=== PATIENT | female | born 1945 | race Caucasian/White ===

== ENCOUNTER 2019-01-03 12:24 | Inpatient (IN) | payer MEDICARE ==
[~2019-01-03 12:24] MED LIST: ISOVUE-370 76%-LOCM 1 ML ONE
[2019-01-03] MEDS ORDERED: Morphine 4 MG/ML VIAL ONE (13:29)
--- NOTE | 2019-01-03 14:51 | CT ---
CT CHEST WITH CONTRAST: INDICATION: Cough. Sepsis. FINDINGS: Cardiomegaly and mild vascular congestion. There are chronic lung parenchymal changes. There is con fluent infiltrate and/or atelectasis in the lung bases. There is a focal opacity in the posterior morris ng base which is pleural based which could represent dense atelectasis or consolidation. It measures 2 cm. This should be followed to ensure clearing as soft tissue nodular mass cannot be excluded. The mediastinum is unremarkable. Thoracic aorta shows no evidence of dissection. The pulmonary ck ry opacification is suboptimal and pulmonary emboli cannot be assessed on this study. IMPRESSION: There is cardiomegaly and mild vascular congestion. There is streaky atelectasis and/or infiltrate i n both lung bases extending to the pleural surface. There is a 2.0 cm pleural-based opacity in the p osterior lung base which could represent dense atelectasis or consolidation. Followup after treatmen t is recommended as a soft tissue mass cannot be excluded. POS: [facility]
[2019-01-03] MEDS ORDERED: HYDROcodone/Acetaminophen 5/325 mg Tablet PO PRN ×2 (18:02)
[2019-01-03] MEDS ORDERED: Acetaminophen 325 MG TAB PO PRN ×2 (18:02→18:11)
[2019-01-03] MEDS ORDERED: Ondansetron ODT 4 MG TAB SL PRN (18:02)
[2019-01-03] MEDS ORDERED: Ondansetron PF 4 MG/2 ML Vial IVP PRN ×3 (18:02→18:11)
[2019-01-03] MEDS ORDERED: hydrALAZINE 20 MG/ML VIAL SLOW IVP PRN (18:11)
[2019-01-03] MEDS ORDERED: Dextrose 5% in Water 1,000 ML IV PRN (18:11)
[2019-01-03] MEDS ORDERED: Ondansetron ODT 4 MG TAB PO PRN ×2 (18:11)
[2019-01-03] MEDS ORDERED: Dextrose 50% Abboject 50 ML SYRINGE SLOW IVP PRN (18:11)
[2019-01-03] MEDS ORDERED: Lactated Ringer's 1,000 ML IV SCH (18:15)
--- NOTE | 2019-01-03 18:16 | HP ---
PRIMARY CARE PHYSICIAN: Dr. Cortez in [place], [place]. CHIEF COMPLAINT: "My left leg has been hurting for the last 2-1/2 weeks." HISTORY OF PRESENT ILLNESS: Ms. Christiansen is a pleasant 73-year-old female, who has a history of hypertension, diabetes mellitus, and previous deep vein thrombosis. She says that she has had problems with her left leg ever since she had surgery on it several years ago. She said that she had a knee replacement surgery that unfortunately got infected. She says that she had an infection in it at least twice and the last time was a few years ago in which case she had to have a spacer put in. She says she is more or less nonambulatory at home and gets around by going from the bed to a wheelchair, but she says in the last 2 weeks, she has gotten severe pain starting in her groin on the left side going all the way down to her leg and her foot. She also says her buttocks hurt as well. She also says that the knee on her left side seems to be more swollen than usual and at times, her daughter can barely touch it. She says this is the reason that she came to the ER. Somehow in the workup there was a concern for possible pneumonia. However, the patient's daughter says that she has been in and out of the hospital several times with pneumonia and then was finally diagnosed with pulmonary fibrosis about 2 to 3 years ago. She says that she has stable shortness of breath. She is on 3 L at home and that the symptoms have not changed. She does admit to having some subjective chills, but no fever. She also has some nausea and decrease in appetite. Otherwise, no other complaints. REVIEW OF SYSTEMS: CONSTITUTIONAL: There has been no fever, but she has had subjective chills, decreased appetite, but no weight loss. HEENT: No headaches. No dizziness. No visual changes. No sore throat or rhinorrhea. NECK: No neck pain. No adenopathy. PULMONARY: As in the history of present illness with no hemoptysis or cough or wheezing. CARDIOVASCULAR: She denies any chest pain. She has stable shortness of breath. No PND. No orthopnea. GASTROINTESTINAL: She has had some occasional nausea, and she did actually throw up once. No other change in bowels. No diarrhea. No melena. GENITOURINARY: She denies any urinary frequency. No hematuria. No hesitancy. MUSCULOSKELETAL: As in history of present illness. SKIN AND INTEGUMENT: No skin changes. No rash. PSYCHIATRIC: No symptoms of anxiety or depression. PAST MEDICAL HISTORY: Significant for hypertension, diabetes, deep vein thrombosis, hypothyroidism, depression, pulmonary fibrosis. PAST SURGICAL HISTORY: She has had an IVC filter placed, cholecystectomy, hysterectomy, thyroidectomy, and total knee replacement x3. ALLERGIES: TO BACTRIM. SHE SAYS IT IS NOT BIAXIN, BUT IT IS BACTRIM AND TORADOL, BOTH OF WHICH ARE NOT TRUE ALLERGIES BUT CAUSED HER TO HAVE NAUSEA. SOCIAL HISTORY: She is a nonsmoker and nondrinker. She is . She has 3 children. Her daughter, Milagros, is her medical power of educational psychologist and she would like to be a full code. FAMILY HISTORY: Significant for congestive heart failure in her mother and diabetes mellitus. CURRENT MEDICATIONS: Include: 1. Levemir insulin 16 to 18 units subcutaneous as needed. 2. Humalog sliding scale. 3. Metoprolol 100 mg daily. 4. Crestor 20 mg daily. 5. Xarelto 20 mg a day. 6. Levothyroxine 125 mcg p.o. daily. 7. Metformin 500 mg twice a day. 8. Losartan 100 mg daily. 9. Venlafaxine extended release 150 mg daily. PHYSICAL EXAMINATION: GENERAL: She is alert and oriented. She appears to be in no acute distress. She is well developed and well nourished. VITAL SIGNS: Blood pressure is 137/64, heart rate 118, respiratory rate of 18, temperature is 99.1, and O2 saturation is 100% on 2 L. HEENT: Her pupils are equal, round, and reactive to light. Extraocular muscles are intact. Her sclerae are anicteric. Throat, no erythema, no exudates. NECK: No adenopathy. No bruits. LUNGS: Clear to auscultation. She does have an occasional expiratory wheeze. CARDIOVASCULAR: She has a normal S1 and S2. Slightly distant heart sounds. No S3. No S4. No murmurs, clicks or rubs. ABDOMEN: Obese. It is soft, nontender, and nondistended. Positive bowel sounds. No rebound. No guarding. No organomegaly. EXTREMITIES: She does have some edema in the left knee, but there is no redness. There is no warmth, but it is exquisitely tender to palpation and she did have some tenderness to palpation at the hip joint as well. It is extremely tender and I am not able to manipulate it and she does have 1 to 2+ pitting edema in the left lower extremity. NEUROLOGIC: She is grossly nonfocal. LABORATORY DATA: Her white blood cell count 15.4, hemoglobin 11.7, hematocrit is 37.3, and platelet count is 316. Her sodium is 137, potassium 4.3, chloride is 101, CO2 is 25, BUN of 6, creatinine 0.85, glucose is 279. Urinalysis was essentially negative. ASSESSMENT: This is a pleasant 73-year-old female, who presents with sepsis syndrome with elevated white blood cell count. She is tachycardic and 2 potential sources including possible pulmonary source versus potentially infected joint. She will be admitted to the [facility]. Blood cultures have already been obtained. We will go ahead and place her on broad-spectrum IV antibiotics and we will consult Dr. Frias, whom she has seen in the past as well as Dr. Flannery to assess the knee joint. She may also need an MRI of her left hip as it is also exquisitely tender and potentially of the lumbar spine as well. 1. Potential pneumonia. These findings could be related to the pulmonary fibrosis. She will be adequately covered antibiotic naidu for potential community-acquired pneumonia and she will be seen by Pulmonology and Critical Care to help sort this out as well. 2. Hypertension. We will reconcile and restart her home medications as appropriate. 3. Diabetes mellitus. Again, restart her home medications as well as a sliding scale. 4. History of deep venous thrombosis with IVC filter. Continue Xarelto and she will not need any Lovenox and further recommendations to follow. Job ID: [id number]
[2019-01-03] MEDS ORDERED: Cefepime 1 GM in Sodium Chloride 0.9% 100 ML IVPB SCH (18:30)
[2019-01-03] MEDS: HYDROcodone/Acetaminophen 10/325 mg Tablet PO PRN ×2 (18:36→22:44)
[2019-01-03] MEDS: Sodium Chloride 0.9% 1,000 ML IV SCH (18:38)
[2019-01-03] MEDS: Morphine 2 MG/ML SYRINGE SLOW IVP PRN (20:59)
[2019-01-03] MEDS ORDERED: Rosuvastatin 20 MG TAB PO SCH (21:00)
[2019-01-03] MEDS ORDERED: Vancomycin HCl 1 GM in Premix Bag 1 BAG IVPB SCH (21:00)
[2019-01-03] MEDS: HumaLOG 300 UNITS/3 ML VIAL SC PRN (22:05)
[2019-01-03] MEDS ORDERED: FLU VACC TS2019-20(65YR UP)/PF 180 MCG/0.5 ML SYRINGE IM ONE (22:45)
[2019-01-04] MEDS: Morphine 2 MG/ML SYRINGE SLOW IVP PRN ×2 (01:44→06:23)
[2019-01-04] MEDS: HYDROcodone/Acetaminophen 10/325 mg Tablet PO PRN ×3 (03:37→21:11)
[2019-01-04] MEDS: Sodium Chloride 0.9% 1,000 ML IV SCH ×2 (05:11→16:16)
[2019-01-04 06:05] LABS: Anion Gap 13 mmol/L (10-20); BUN (Urea Nitrogen) Less than 4 mg/dL (9.8-20.1); Calc. Creatinine Clearance 104 mL/min (70-130); Calcium 8.2 mg/dL (7.8-10.44); Carbon Dioxide 23 mmol/L (23-31); Chloride 103 mmol/L (98-107); Estimated GFR-MDRD 77; Glucose 233 mg/dL (83-110); Potassium 3.8 mmol/L (3.5-5.1); Sodium 135 mmol/L (136-145)
[2019-01-04 06:06] LABS: Band 2 % (5-11); Hemoglobin 11.1 g/dL (12.0-16.0); Lymphocytes 55 % (21-51); MDiff Complete? YES; Mean Corpuscular HGB CONC 32.5 g/dL (32.0-36.0); Mean Corpuscular Hemoglobin 29.5 pg (27.0-31.0); Mean Corpuscular Volume 90.7 fL (78.0-98.0); Mean Platelet Volume 6.5 fL (7.4-10.4); Neutrophil 43 % (42-75); Platelet Count 309 thou/uL (130-400); Platelet Morphology Comment Appears Adequate; RBC Distribution Width 13.6 % (11.5-14.5); RBC Morphology Normal; Red Blood Cell (RBC) Count 3.76 mill/uL (4.20-5.40); White Blood Cell (WBC) Count 12.7 thou/uL (4.8-10.8)
[2019-01-04] MEDS: HumaLOG 300 UNITS/3 ML VIAL SC PRN ×3 (06:22→16:38)
[2019-01-04] MEDS: Rivaroxaban 10 MG TAB PO SCH (06:23)
[2019-01-04] MEDS: Vancomycin HCl 1.5 GM in Sodium Chloride 0.9% 250 ML 300 ML IVPB SCH (09:05)
[2019-01-04] MEDS: Cefepime 1 GM in Sodium Chloride 0.9% 100 ML IVPB SCH ×2 (09:06→20:54)
[2019-01-04] MEDS: Multivitamin W/ Minerals 1 TAB PO SCH (09:08)
--- NOTE | 2019-01-04 09:32 | RAD ---
LEFT KNEE TWO VIEWS: HISTORY: Total knee arthroplasty. FINDINGS: There are post surgical changes compatible with a left knee arthroplasty. Alignment is near anatomic. IMPRESSION: Findings compatible with a left knee arthroplasty. POS: [facility]
[2019-01-04] MEDS: Prevnar 13-Val Conj/PF 0.5 ML SYRINGE IM ONE (09:59)
--- NOTE | 2019-01-04 10:32 | PDOC.HOSPP ---
- Subjective Encounter Date: 01/04/19 Encounter Time: 10:31 Subjective: Ms. Christiansen was seen today in follow-up of severe knee and hip pain. She says the morphine did not help much. - Objective Vital Signs & Weight: Vital Signs (12 hours) Temp Pulse Ox 01/04/19 07:38 98 01/04/19 07:26 97.8 F 01/04/19 03:00 97.5 F L 01/03/19 23:00 97.5 F L Weight Weight 217 lb 2.485 oz Most Recent Monitor Data Heart Rate from ECG 127 NIBP 141/70 NIBP BP-Mean 93 Respiration from ECG 21 SpO2 100 I&O: 01/03/19 01/04/19 01/05/19 06:59 06:59 06:59 Intake Total 1375 240 Balance 1375 240 Result Diagrams: 01/04/19 05:25 01/04/19 05:25 Additional Labs: Accuchecks 01/04/19 01/03/19 05:11 21:00 POC Glucose 216 H 204 H Hospitalist ROS - Medication Medications: Active Medications Generic Name Dose Route Start Last Admin Trade Name Freq PRN Reason Stop Dose Admin Hydrocodone Bitart/Acetaminophen 1 tab 01/03/19 18:11 01/04/19 09:07 [place] 10/325 PO 1 tab Q4H PRN Administration Moderate Pain (4-6) Sodium Chloride 1,000 mls @ 100 mls/hr 01/03/19 18:15 01/04/19 05:11 Normal Saline 0.9% IV 1,000 mls .Q10H TIN Administration Cefepime HCl 1 gm/ Sodium 100 mls @ 200 mls/hr 01/04/19 08:00 01/04/19 09:06 Chloride IVPB 100 mls 0800,2000 TIN Administration Vancomycin HCl 1.5 gm/ Sodium 300 mls @ 200 mls/hr 01/04/19 09:00 01/04/19 09 :05 Chloride IVPB 300 mls 0900 TIN Administration Insulin Human Lispro 0 units 01/03/19 18:11 01/04/19 06:22 Humalog SC 4 unit .MODERATE SLIDING SC PRN Administration Moderate Correctional Scale Insulin Human Lispro 0 units 01/03/19 18:11 01/03/19 22:05 Humalog SC 2 unit .BEDTIME SLIDING SC PRN Administration Bedtime Correctional Scale Iron/Minerals/Multivitamins 1 tab 01/04/19 09:00 01/04/19 09:08 Theragran M PO 1 tab DAILY TIN Administration Morphine Sulfate 2 mg 01/03/19 18:47 01/04/19 06:23 Morphine SLOW IVP 2 mg Q4H PRN Administration Moderate Pain (4-6) Rivaroxaban 20 mg 01/04/19 06:00 01/04/19 06:23 Xarelto PO 20 mg 0600 TIN Administration Rosuvastatin Calcium 20 mg 01/03/19 21:00 01/03/19 21:01 Crestor PO 20 mg HS TIN Administration - Exam Eye: PERRL, anicteric sclera Heart: RRR (tachycardia), no murmur, no gallops, no rubs, normal peripheral pulses Respiratory: no wheezes, no rales, no ronchi, rales Gastrointestinal: soft, non-distended, normal bowel sounds Extremities: no cyanosis, no clubbing, 1+ LE edema (left knee, no erythema, no warmth, no obvious effusion) Hosp A/P (1) Left knee pain Code(s): M25.562 - PAIN IN LEFT KNEE Status: Acute (2) Left hip pain Code(s): M25.552 - PAIN IN LEFT HIP Status: Acute (3) DM type 2 (diabetes mellitus, type 2) Status: Chronic Qualifiers: Diabetes mellitus terminal worker insulin use: without usp use Diabetes mellitus complication status: with unspecified complications (4) HTN (hypertension) Code(s): I10 - ESSENTIAL (PRIMARY) HYPERTENSION Status: Chronic Qualifiers: Hypertension type: essential hypertension Qualified Code(s): I10 - Essential (primary) hypertension (5) Obesity (BMI 30-39.9) Code(s): E66.9 - OBESITY, UNSPECIFIED Status: Chronic (6) Chronic respiratory failure with hypoxia Code(s): J96.11 - CHRONIC RESPIRATORY FAILURE WITH HYPOXIA Status: Acute (7) Pulmonary fibrosis Code(s): J84.10 - PULMONARY FIBROSIS, UNSPECIFIED Status: Acute - Plan * Chronic Respiratory failure- discussed with Dr. Lizarraga- he does not believe she has an acute pneumonia * Pulmonary Fibrosis- stable * Left knee pain- it does not appear infected- but will defer to Orthopedics and ID * Back pain and Sciatica- she is not a surgical candidate, but will need to rule out disciitis or septic joint- will check an MRI of her lumber spine, and left hip * Sinus Tachycardia- ? etiology- will check another EKG and see if she has an underlying arrhythmia.
[2019-01-04] MEDS: Morphine 4 MG/ML VIAL SLOW IVP PRN ×2 (11:20→16:37)
--- NOTE | 2019-01-04 12:03 | CON ---
DATE OF CONSULTATION: 01/04/2019 This is 45 minutes of time, greater than 50% was spent with the patient and/or the patient's unit in the hospital. REASON FOR CONSULTATION: Possible pneumonia. HISTORY OF PRESENT ILLNESS: Ms. Christiansen is a 73-year-old female from [place], [place]. She has previously seen Dr. Mckeon for workup of lung issues. She is currently seeing a pantry goods maker in [place]. She has been diagnosed with idiopathic pulmonary fibrosis. She is currently only on oxygen for that. The patient was hospitalized here yesterday for longstanding pain in her left hip region radiating down her leg. She is concerned that this could be from a knee prosthesis. She was noted to have an elevated white count and tachycardia at admission and there were some concern that she could have pneumonia. She tells me that her pulmonary symptoms are at baseline. She ordinarily wears oxygen at 3 L at home. She has a dry cough at baseline that has not changed. She has had no fever or chills. PAST MEDICAL HISTORY: 1. Idiopathic pulmonary fibrosis. 2. Hypertension. 3. Diabetes mellitus. 4. Deep venous thrombosis. 5. Hypothyroidism. 6. Depression. PAST SURGICAL HISTORY: 1. IVC filter placement. 2. Cholecystectomy. 3. Hysterectomy. 4. Thyroidectomy. 5. Total knee replacement of the left knee with revision. ALLERGIES: BACTRIM AND TORADOL. SOCIAL HISTORY: Lifetime nonsmoker. Does not consume alcohol. FAMILY MEDICAL HISTORY: Remarkable for diabetes mellitus and congestive heart failure. REVIEW OF SYSTEMS: Twelve-point review of systems is otherwise negative. PHYSICAL EXAMINATION: VITAL SIGNS: Temperature 97.8, pulse 127, blood pressure 141/70, and O2 saturation 100%. GENERAL: She is awake and alert, and in no distress. HEENT: Unremarkable. NECK: No adenopathy or JVD. LUNGS: She has inspiratory crackles at both bases with Velcro type consistency. CARDIAC: S1 and S2. Slightly tachycardic. No murmur. ABDOMEN: Soft and nontender to palpation. EXTREMITIES: No clubbing, cyanosis, or edema. She has surgical scars of her left knee, which are well healed. NEUROLOGIC: Grossly intact throughout. LABORATORY DATA: White blood cell count 12.7, hematocrit 34.1, and platelet count 309 with 2% bands, 43% neutrophils. Sodium 135, potassium 3.8, chloride 103, CO2 of 23, BUN 4, creatinine 0.7, and glucose 233. C-reactive protein is 2.3. IMAGING DATA: Her CT scan of the chest shows fibrotic changes in the bases. I doubt that she has any type of pneumonitis. ASSESSMENT: 1. Idiopathic pulmonary fibrosis at baseline. 2. Doubt we are dealing with any acute pneumonia. 3. Pain secondary to sciatica. This could be causing her elevated white count and tachycardia. RECOMMENDATIONS: If her 48-hour cultures are negative, then I would stop her antibiotics. I do feel she is safe to transfer to the floor. She may need neurosurgery to investigate her sciatica. I have asked nursing staff to humidify her oxygen as she has a dry mouth from the current nasal cannula. I will inform Dr. Mckeon on the patient's admission. Job ID: [id number]
[2019-01-04 14:11] VITALS: BMI 38.5
[2019-01-04 15:17] LABS: T4 6.8 ug/dL (4.87-11.72); Thyroid Stimulating Hormone 6.5176 uIU/mL (0.35-4.94)
--- NOTE | 2019-01-04 15:18 | MRI ---
MRI LUMBAR SPINE WITHOUT CONTRAST: Date: 01/04/19 HISTORY: Severe left hip and leg pain. COMPARISON: 11/12/13. FINDINGS: Appropriate T1 marrow signal intensity of the lumbar vertebra. Lumbar spine vertebral body height is maintained. There is no fracture. No significant STIR hyperintensity to suggest vertebral body edema. Appropriate signal intensity of the visualized paraspinal muscles and solid organs. 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 T12-L1: Adequate disc hydration. No significant central canal stenosis or significant neural foramin al narrowing. L1-L2: Adequate disc hydration. Broad based disc bulge with resultant mild central canal stenosis. B ilaterally, neural foramina are patent. L2-L3: Adequate disc hydration. Minimal ligamentum flavum thickening and facet hypertrophy. No signi ficant central canal stenosis or significant neural foraminal narrowing. L3-L4: Disc desiccation with mild loss of disc space height. Broad based disc bulge with minimal sup erior and inferior disc extrusion. Minimal ligamentum flavum thickening and facet hypertrophy result in mild to moderate central canal stenosis. Bilaterally, neural foramina are patent. L4-L5: Moderate loss of disc space height. Broad based disc bulge, ligamentum flavum thickening, and facet hypertrophy result in mild central canal stenosis. There is moderate narrowing of the left sub articular zone with partial obscuration traversing right L5 nerve root. Mild to moderate right and mo derate left neural foraminal narrowing. L5-S1: Desiccation with severe loss of disc space height. Broad based disc bulge does not cause any significant stenosis of the thecal sac. However, there is disc material in both subarticular zones, l eft greater than right. There is mass effect and partial obscuration of the traversing left S1 nerve root. The degree of left foraminal stenosis has minimally progressed since the previous examination. Moderate right and left foraminal narrowing. IMPRESSION: 1. Degenerative changes of the lumbar spine as above. 2. 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 Consider dedicated imaging of the t horacic spine pre and post contrast. CODE T. POS: [facility]
--- NOTE | 2019-01-04 16:32 | MRI ---
MRI OF PELVIS AND LEFT HIP PERFORMED WITHOUT CONTRAST ENHANCEMENT: Date: 01/04/19 HISTORY: Left hip pain. FINDINGS: Pelvic ring is intact without evidence of any type of insufficiency type fracture. There is some mild tendinosis of the hamstring tendon origins. Right hip region appears unremarkable, other than some minimal osteophytic lipping of the acetabulum. Small field of view images of the left hip were performed. These show fairly pronounced diffuse muscl e atrophy, particularly in the gluteus musculature, but also involving the tensor fasciae latae and s artorius and vastus lateralis muscles. There is motion artifact and assessment of the hip labrum is very limited. Also, signal to noise was less than optimal due to body habitus. There is some minimal edema change seen along the posterolater al border of the femoral head near the femoral head/neck junction. On axial T1, there is some subchon dral lucency associated with this, and although this is slightly atypical in location, probably repre sents a subtle area of insufficiency fracture. As previously stated, the gluteus minimus and medius muscles show marked atrophy. There is some minim al edema change associated with this, which may indicate mild muscle strain. The gluteus minimus and medius tendon insertions appear fairly unremarkable. No trochanteric bursitis. IMPRESSION: 1. Marrow edema change along the posterolateral margin of the femoral head near the femoral head/nec k junction. I believe this represents a small area of subchondral insufficiency fracture, not entirel y typical in location, but still felt to represent a small insufficiency fracture. 2. Diffuse muscle atrophy. Some minimal edema change associated with the atrophy of gluteus minimus and medius muscles. POS: [facility]
[2019-01-04] MEDS: metFORMIN 500 MG TAB PO SCH (16:37)
--- NOTE | 2019-01-04 20:42 | CON ---
DATE OF CONSULTATION: 01/04/2019 REASON FOR CONSULTATION: Left hip pain. HISTORY OF PRESENT ILLNESS: A 73-year-old patient, whom I had seen in July 2016, when she presented with a history of type 2 diabetes, hypertension, prior DVT, previous left total knee replacement in 2012. The patient was admitted with inflammatory changes in the left TKR site and she had removal of the implant. Cultures were all negative and she was treated for 6 weeks with IV Rocephin and vancomycin. She has kept an articulated implant in the left knee, but has lost ability to walk and remains pretty much bedridden for the past 2 years. She will transfer independently to a powered wheelchair and then go to do her activities of daily living, but unable to ambulate. At this time, she presents with progressively worsening pain in the lower back radiating towards the left hip, which has been present for the past 2-1/2 weeks. Initial exam showed essentially normal vital signs, mild elevation of temperature of 99.1 otherwise. Initial white cell count was 12.7 with hemoglobin 11, but she had a right shift of 55% lymphocytes. Chemistry showed a normal creatinine, glucose 251, TSH 6.5, CRP 2.39. 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 The pelvic MRI is pending interpretation at this point. The patient is complaining of tenderness in the left SI region and trochanteric bursa region. Otherwise, denies headaches, visual symptoms, sore throat, odynophagia, or dysphagia. No cough sputum, sputum production, or dyspnea. No chest pain. No abdominal pain or diarrhea. No constipation. Voiding without difficulty. She has a dropfoot left side. MEDICAL HISTORY: Hypertension, type 2 diabetes, DVT, hypothyroidism, depression, pulmonary fibrosis, O2 dependent, prior TKR infection with removal and placement of an articulated spacer which is still there at this point. She has a history of IVC filter placement, cholecystectomy, hysterectomy, and thyroidectomy. ALLERGIES: INCLUDE SULFA DRUGS AND TORADOL. SOCIAL HISTORY: Never smoker. . Lives with daughter. FAMILY HISTORY: CHF and type 2 diabetes. CURRENT MEDICATIONS: 1. Tylenol. 2. Stanley. 3. DuoNeb. 4. Cefepime. 5. Dextrose. 6. Glimepiride. 7. Glucagon. 8. Insulin. 9. Metformin. 10. Morphine. 11. Prednisone. 12. Vancomycin. PHYSICAL EXAMINATION: VITAL SIGNS: She has been afebrile since admission. Other vital signs are normal. O2 saturation 99%. GENERAL: Appears depressed. SKIN: No skin abnormalities noted. The patient has peripheral IV access and is voiding in the bedpan. No lymphadenopathy. HEENT: Ocular movements conjugate. Oral cavity normal. NECK: Supple. LUNGS: With bibasilar inspiratory crackles. HEART: S1 and S2, regular rate without murmurs. ABDOMEN: Soft, not distended or tender. No ascites. No bladder distention. MUSCULOSKELETAL: Tender left trochanteric bursa area and left sacroiliac joint area. Range of motion of left hip is within normal limits without eliciting any pain. She is unable to lift her knee from the bed on the left side, this she is able to do it on the right and has fairly good strength there. She has a dropfoot on the left side. Pulses are 1+ in dorsalis pedis. Trace edema in the pretibial area. NEUROLOGIC: She is awake and oriented. Follows commands. LABORATORY STUDIES: White cell count has been discussed above and the reports noted above as well. There is a knee x-ray with left knee arthroplasty with anatomic alignment. There is a chest CT scan with cardiomegaly, mild vascular congestion, streaky atelectasis, infiltrate in lung bases, 2 cm pleural-based opacity. ASSESSMENT: 1. Chronic lung disease with pulmonary fibrosis, mobility impairments and deconditioning associated with prior knee interventions, which culminated on the latest procedure in 2017. Since then, the patient has lost her ability to ambulate. There is no evidence of recrudescence of inflammatory process in left knee though. 2. Progressive pain in the left SI joint/trochanteric region with concern for radiculopathy versus an actual inflammatory process there. DISCUSSION: Thus far, the MRIs have not revealed any culprit for the pain the patient is experiencing at this point in time. We will wait for the final read of the pelvic MRI and proceed from there. She has a right shift in the differential, so the clinical findings argue against a bacterial infectious process at this point in time. Job ID: [id number]
[2019-01-04] MEDS: Insulin Glargine 6 UNITS in Pre-Filled Syringe 1 EACH SC SCH (20:58)
[2019-01-04] MEDS: Gabapentin 100 MG CAP PO SCH (20:59)
[2019-01-04] MEDS: Rosuvastatin 20 MG TAB PO SCH (20:59)
[2019-01-04] MEDS: Glimepiride 4 MG TAB PO SCH (20:59)
[2019-01-04] MEDS ORDERED: INSULIN DETEMIR SC SCH (21:00)
--- NOTE | 2019-01-04 23:53 | EKG ---
Test Reason : Blood Pressure : / mmHG Vent. Rate : 125 BPM Atrial Rate : 125 BPM P-R Int : 152 ms QRS Dur : 082 ms QT Int : 278 ms P-R-T Axes : 031 084 046 degrees QTc Int : 401 ms Sinus tachycardia Low voltage QRS Nonspecific T wave abnormality Abnormal ECG When compared with ECG of 03-JAN-2019 12:50, (Unconfirmed) No significant change was found Confirmed by Kayla SURESH ([id number]) on 01/04/2019 11:52:54 PM Referred By: MAURO Confirmed By:Kayla SURESH
[2019-01-05] MEDS: HYDROcodone/Acetaminophen 10/325 mg Tablet PO PRN ×3 (00:56→18:59)
[2019-01-05] MEDS: Sodium Chloride 0.9% 1,000 ML IV SCH ×2 (00:58→08:17)
[2019-01-05] MEDS: HumaLOG 300 UNITS/3 ML VIAL SC PRN ×4 (04:29→21:01)
[2019-01-05 05:01] LABS: #Eosinphils 0.6 thou/uL (0.0-0.7); #Lymphocytes 4.6 thou/uL (1.20-3.40); #Neutrophils 3.2 thou/uL (1.40-6.50); %Basophils 0.2 % (0.0-1.0); %Eosinophils 6.7 % (0.0-10.0); %Lymphocytes 48.1 % (21.0-51.0); %Neutrophils 34.1 % (42.0-75.0); Hemoglobin 11.4 g/dL (12.0-16.0); Mean Corpuscular HGB CONC 32.2 g/dL (32.0-36.0); Mean Corpuscular Hemoglobin 29.3 pg (27.0-31.0); Mean Corpuscular Volume 90.9 fL (78.0-98.0); Mean Platelet Volume 6.4 fL (7.4-10.4); Platelet Count 307 thou/uL (130-400); RBC Distribution Width 13.8 % (11.5-14.5); Red Blood Cell (RBC) Count 3.89 mill/uL (4.20-5.40); White Blood Cell (WBC) Count 9.5 thou/uL (4.8-10.8)
[2019-01-05 05:21] LABS: Anion Gap 10 mmol/L (10-20); BUN (Urea Nitrogen) Less than 4 mg/dL (9.8-20.1); Calc. Creatinine Clearance 108 mL/min (70-130); Calcium 8.1 mg/dL (7.8-10.44); Carbon Dioxide 23 mmol/L (23-31); Chloride 105 mmol/L (98-107); Estimated GFR-MDRD 80; Glucose 198 mg/dL (83-110); Potassium 4.3 mmol/L (3.5-5.1); Sodium 134 mmol/L (136-145)
[2019-01-05] MEDS: Rivaroxaban 10 MG TAB PO SCH ×2 (06:09→06:32)
[2019-01-05] MEDS: Levothyroxine Sodium 125 MCG TAB PO SCH (06:09)
[2019-01-05] MEDS: Vancomycin HCl 1.5 GM in Sodium Chloride 0.9% 250 ML 300 ML IVPB SCH (09:00)
[2019-01-05] MEDS: Cefepime 1 GM in Sodium Chloride 0.9% 100 ML IVPB SCH ×2 (09:00→20:27)
[2019-01-05] MEDS: Venlafaxine HCl XR 150 MG CAP PO SCH (09:02)
[2019-01-05] MEDS: Multivitamin W/ Minerals 1 TAB PO SCH (09:02)
[2019-01-05] MEDS: predniSONE 20 MG TAB PO SCH ×2 (09:02→09:27)
[2019-01-05] MEDS: metFORMIN 500 MG TAB PO SCH ×2 (09:02→17:30)
[2019-01-05] MEDS: Glimepiride 4 MG TAB PO SCH ×2 (09:02→21:04)
[2019-01-05] MEDS ORDERED: Milk Of Magnesia 30 ML UDCUP PO PRN (09:03)
[2019-01-05] MEDS: Insulin Glargine 6 UNITS in Pre-Filled Syringe 1 EACH SC SCH ×2 (09:10→20:29)
[2019-01-05 09:16] LABS: Vancomycin, Trough 9.4 ug/mL
[2019-01-05] MEDS: Docusate 100 MG CAP PO SCH (12:08)
--- NOTE | 2019-01-05 14:10 | PDOC.HOSPP ---
- Subjective Encounter Date: 01/05/19 Encounter Time: 14:08 Subjective: Ms. Christiansen was seen today in follow-up of severe left hip and knee pain. She says the pain is now on the right hip. The pain on the left side has resolved. - Objective Vital Signs & Weight: Vital Signs (12 hours) Temp Pulse Resp BP BP Pulse Ox 01/05/19 12:08 100.2 F H 109 H 20 158/68 H 99 01/05/19 10:33 96 01/05/19 08:40 98.8 F 100 20 140/60 96 01/05/19 08:00 97 01/05/19 07:58 82 16 97 01/05/19 04:11 98.2 F 87 16 128/68 95 Weight Admit Weight 213 lb Weight 217 lb 2.48 oz Most Recent Monitor Data Heart Rate from ECG 126 NIBP 141/70 NIBP BP-Mean 93 Respiration from ECG 17 SpO2 99 I&O: 01/04/19 01/05/19 01/06/19 06:59 06:59 06:59 Intake Total 1375 4504 Output Total 405 Balance 1375 4099 Result Diagrams: 01/05/19 04:17 01/05/19 04:17 Additional Labs: Accuchecks 01/05/19 01/05/19 01/04/19 11:38 04:09 20:17 POC Glucose 228 H 186 H 190 H 01/04/19 16:39 POC Glucose 200 H Hospitalist ROS - Medication Medications: Active Medications Generic Name Dose Route Start Last Admin Trade Name Freq PRN Reason Stop Dose Admin Hydrocodone Bitart/Acetaminophen 1 tab 01/03/19 18:11 01/05/19 06:34 [place] 10/325 PO 1 tab Q4H PRN Administration Moderate Pain (4-6) Albuterol/Ipratropium 3 ml 01/04/19 13:00 01/05/19 07:58 Duoneb IPPB 3 ml [id number] TIN Administration Docusate Sodium 100 mg 01/05/19 21:00 01/05/19 12:08 Colace PO 100 mg BID TIN Administration Gabapentin 100 mg 01/04/19 21:00 01/04/19 20:59 Neurontin PO 100 mg HS TIN Administration Glimepiride 4 mg 01/04/19 21:00 01/05/19 09:02 Amaryl PO 4 mg BID TIN Administration Sodium Chloride 1,000 mls @ 100 mls/hr 01/03/19 18:15 01/05/19 00:58 Normal Saline 0.9% IV 1,000 mls .Q10H TIN Administration Cefepime HCl 1 gm/ Sodium 100 mls @ 200 mls/hr 01/04/19 08:00 01/05/19 09:00 Chloride IVPB 100 mls 0800,1999 TIN Administration Insulin Glargine 6 units/ 0.06 mls @ 0 mls/hr 01/04/19 21:00 01/05/19 09:10 Miscellaneous Medication SC 0.06 mls BID TIN Administration Insulin Human Lispro 0 units 01/03/19 18:11 01/05/19 12:08 Humalog SC 2 unit .MODERATE SLIDING SC PRN Administration Moderate Correctional Scale Insulin Human Lispro 0 units 01/03/19 18:11 01/03/19 22:05 Humalog SC 2 unit .BEDTIME SLIDING SC PRN Administration Bedtime Correctional Scale Iron/Minerals/Multivitamins 1 tab 01/04/19 09:00 01/05/19 09:02 Theragran M PO 1 tab DAILY TIN Administration Levothyroxine Sodium 125 mcg 01/05/19 06:00 01/05/19 06:09 Synthroid PO 125 mcg 0600 TIN Administration Metformin HCl 500 mg 01/04/19 17:00 01/05/19 09:02 Glucophage PO 500 mg BID-WM TIN Administration Metoprolol Succinate 100 mg 01/04/19 21:00 01/04/19 20:59 Toprol Xl PO 100 mg HS TIN Administration Morphine Sulfate 2 mg 01/03/19 18:47 01/04/19 06:23 Morphine SLOW IVP 2 mg Q4H PRN Administration Moderate Pain (4-6) Morphine Sulfate 4 mg 01/04/19 10:39 01/04/19 16:37 Morphine SLOW IVP 4 mg Q4H PRN Administration Moderate to Severe Pain (6-10) Ondansetron HCl 4 mg 01/03/19 18:11 01/05/19 12:07 Zofran Odt PO 4 mg Q6H PRN Administration Nausea/Vomiting Prednisone 20 mg 01/05/19 08:00 01/05/19 09:27 Prednisone PO Not Given QAM-WM TIN Rivaroxaban 20 mg 01/04/19 06:00 01/05/19 06:32 Xarelto PO 20 mg 0600 TIN Administration Rosuvastatin Calcium 20 mg 01/04/19 21:00 01/04/19 20:59 Crestor PO 20 mg HS TIN Administration Sodium Chloride 10 ml 01/04/19 21:00 01/04/19 21:05 Flush - Normal Saline IVF 10 ml Q12HR TIN Administration Venlafaxine HCl 150 mg 01/05/19 09:00 01/05/19 09:02 Effexor Xr PO 150 mg DAILY TIN Administration - Exam Eye: PERRL, anicteric sclera Heart: RRR, no murmur, no gallops, no rubs, normal peripheral pulses Respiratory: CTAB, no wheezes, no rales, no ronchi, normal chest expansion, no tachypnea Gastrointestinal: soft, non-tender, non-distended, normal bowel sounds, no palpable masses, no hepatomegaly Extremities: no cyanosis, no clubbing, 1+ LE edema (knee- no erythema or joint effusion, no warmth) Psychiatric: normal affect, normal behavior, A&O x 3 Hosp A/P (1) Lumbar disc disease with radiculopathy Code(s): M51.16 - INTERVERTEBRAL DISC DISORDERS W RADICULOPATHY, LUMBAR REGION Status: Acute (2) Left knee pain Code(s): M25.562 - PAIN IN LEFT KNEE Status: Acute (3) Left hip pain Code(s): M25.552 - PAIN IN LEFT HIP Status: Acute (4) DM type 2 (diabetes mellitus, type 2) Status: Chronic Qualifiers: Diabetes mellitus long term care administrator insulin use: without [place] [facility] use Diabetes mellitus complication status: with unspecified complications (5) HTN (hypertension) Code(s): I10 - ESSENTIAL (PRIMARY) HYPERTENSION Status: Chronic Qualifiers: Hypertension type: essential hypertension Qualified Code(s): I10 - Essential (primary) hypertension (6) Obesity (BMI 30-39.9) Code(s): E66.9 - OBESITY, UNSPECIFIED Status: Chronic (7) Chronic respiratory failure with hypoxia Code(s): J96.11 - CHRONIC RESPIRATORY FAILURE WITH HYPOXIA Status: Acute (8) Pulmonary fibrosis Code(s): J84.10 - PULMONARY FIBROSIS, UNSPECIFIED Status: Acute - Plan * Lumbar Disc disease- the MRI was negative for disciitis, or signs of infection in the hip- the focus is symptom management going forward * Right hip pain- likely from the same_ lumbar disc disease * Chronic Respiratory failure- stable * Pulmonary Fibrosis- stable * Sinus Tachycardia- much better- ? pain, volume depletion? * Home soon once pain adequately controlled with oral medications- discussed with the patient- will discontinue Morphine IV
[2019-01-05] MEDS: Polyethylene Glycol 3350 17 GM Packet PO PRN (15:16)
--- NOTE | 2019-01-05 17:08 | PRG ---
DATE OF SERVICE: 01/05/2019 SERVICE: Pulmonary Medicine. INTERVAL HISTORY: The patient is doing fine from respiratory standpoint. Her cough is at baseline. She is not bringing up any sputum. Denies any fevers, chills, or overnight events. She continues to have discomfort, which seems to be migrating. PHYSICAL EXAMINATION: VITAL SIGNS: Afebrile, currently with a T-max of 100.2, pulse 109, blood pressure 158/68, respirations 20, and saturations 99% on 2 L nasal cannula. GENERAL: The patient is awake and alert, in no apparent distress. LUNGS: Crackles are present. They seem to be a touch worse on the left compared to the right. HEART: Normal rate regular. ABDOMEN: Soft, nontender, nondistended. Bowel sounds are positive. MUSCULOSKELETAL: No cyanosis or clubbing. There is no pitting. NEUROLOGIC: Grossly nonfocal. LABORATORY DATA: WBC 9.5, hemoglobin 11.4, and platelets 307,000. Basic metabolic profile is otherwise unremarkable. TSH 6.5. CRP 2.39. Vancomycin 9.4. IMAGING STUDIES: 1. Echocardiogram had poor definition. A guess at an ejection fraction was not even attempted. 2. Pelvic MRI does not demonstrate any evidence of inflammatory changes in the pelvis. Diffuse muscle atrophy is noted. Possible insufficiency fracture present. 3. Lumbar MRI demonstrates no evidence of acute inflammatory process. Degenerative changes are present. There is possible string. 4. MRI of the pelvis and lumbar spine did not demonstrate any evidence of acute inflammatory process. 5. X-ray of the knee demonstrates no acute subluxation or fracture. 6. CT of the chest demonstrates findings consistent with pulmonary fibrosis. Tends to be a little worse in the left base compared to the right. She also has traction bronchiectasis present. ASSESSMENT: 1. Hepatic pulmonary fibrosis. 2. Chronic hypoxic respiratory failure, at baseline. 3. Obstructive sleep apnea, suspected. 4. Deconditioning, severe. DISCUSSION AND PLAN: The patient is at baseline from respiratory standpoint. Any antibiotics directed at lung issue should be limited to a 10- to 14-day course. At this point, she has no further requirements for inpatient Pulmonary or Critical Care opinion, and we will sign off. Please call if there are increasing respiratory disturbances through time. Since she is tolerating p.o., IV fluids will be interrupted. Job ID: [id number] [facility]
[2019-01-05] MEDS: Gabapentin 100 MG CAP PO SCH (21:03)
[2019-01-05] MEDS: Rosuvastatin 20 MG TAB PO SCH (21:03)
[2019-01-05] MEDS: Vancomycin HCl 1 GM in Premix Bag 1 BAG IVPB SCH (22:13)
[2019-01-06] MEDS: Rivaroxaban 10 MG TAB PO SCH (05:42)
[2019-01-06] MEDS: HumaLOG 300 UNITS/3 ML VIAL SC PRN ×4 (05:42→21:02)
[2019-01-06] MEDS: Levothyroxine Sodium 125 MCG TAB PO SCH (05:42)
[2019-01-06] MEDS: HYDROcodone/Acetaminophen 10/325 mg Tablet PO PRN ×2 (08:08→17:02)
[2019-01-06] MEDS: predniSONE 20 MG TAB PO SCH (08:09)
[2019-01-06] MEDS: Glimepiride 4 MG TAB PO SCH ×2 (08:09→16:28)
[2019-01-06] MEDS: Losartan 25 MG TAB PO SCH (08:09)
[2019-01-06] MEDS: metFORMIN 500 MG TAB PO SCH ×2 (08:09→16:28)
[2019-01-06] MEDS: Venlafaxine HCl XR 150 MG CAP PO SCH (08:09)
[2019-01-06] MEDS: Docusate 100 MG CAP PO SCH ×2 (08:09→21:05)
[2019-01-06] MEDS: Multivitamin W/ Minerals 1 TAB PO SCH (08:09)
[2019-01-06] MEDS: Insulin Glargine 6 UNITS in Pre-Filled Syringe 1 EACH SC SCH ×2 (08:46→21:01)
[2019-01-06] MEDS: Cefepime 1 GM in Sodium Chloride 0.9% 100 ML IVPB SCH ×2 (08:46→19:51)
[2019-01-06] MEDS: Vancomycin HCl 1 GM in Premix Bag 1 BAG IVPB SCH (09:31)
--- NOTE | 2019-01-06 13:05 | PRG ---
DATE OF SERVICE: 01/06/2019 SUBJECTIVE: I am seeing Iveth again after initial consultation for left leg and knee pain. Concerns for septic periprosthetic arthritis, and but her knee has not continued to swell. It has not gotten any worse and the patient does not truly become labile or appearing septic in general. OBJECTIVE: VITAL SIGNS: Temperature 98.8, pulse 98, respiratory rate 20, blood pressure is 132/83. GENERAL: She is alert, oriented, responsive, and appropriate. Grossly nonfocal. DIAGNOSTIC DATA: Visual inspection of left knee demonstrates her arthrotomy incision to be clean. No erythema. No swelling is noted. The joint is not warm. She still has persistent footdrop on the same side. IMPRESSION: Enthesopathy, left lower extremity. To be a neuropathic process versus or all this could be a neuropathic process, but we have low concern for septic arthritis. PLAN: Defer treatment for now. Recheck tomorrow, and we will continue to follow. Job ID: [id number]
--- NOTE | 2019-01-06 15:52 | CON ---
DATE OF CONSULTATION: 01/03/2019 REQUESTING PHYSICIAN: Dr. Damion Garcia. CONSULTING PHYSICIAN: Dr. Marcellus Flannery. REASON FOR CONSULTATION: Left leg pain with concerns of septic arthritis. 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 She was recently admitted by the Medicine Service for left leg pain, which has been present and progressive for the last couple weeks. The pain started in left buttock extended down in the posterior thigh and leg. She has exquisite tenderness over the knee. She does not ambulate much due to prior surgeries and a footdrop on the left. She has had a prior lumbar radiculopathy, and the patient is not sure where the footdrop pain from or how long she has had it. She attributes it to a fracture in her foot some years ago. PHYSICAL EXAMINATION: Visual inspection of left lower extremity demonstrates an arthrotomy incision clean. No erythema. Range of motion of the knee is difficult to assess as the patient is a somewhat stiff, but has a good tolerance for this. It is stable to varus and valgus stressing. It is non provocative and non-concordant. Straight leg raise is equivocal. Bowstring is equivocal. Internal-external rotation in the femur produces no pain. She does have a footdrop on the left. She cannot dorsiflex, but she can plantar flex. Skin appears intact. I see no rashes and the patient is rolled over to examine posteriorly, and again I see no rashes to suggest shingles. IMPRESSION: Left lower extremity enthesopathy, etiology unclear. Could be this a chronic radiculopathy. PLAN: At this point, we will just watch the knee. We will have low concern for infection based on vitals and physical findings. Recheck daily intervals, but for now, no surgical plans are to be made for the knee. Job ID: [id number]
--- NOTE | 2019-01-06 19:56 | PDOC.HOSPP ---
- Subjective Encounter Date: 01/06/19 Encounter Time: 11:13 Subjective: pt up in bed complains of pain to her right hip - Objective Vital Signs & Weight: Vital Signs (12 hours) Temp Pulse Resp BP Pulse Ox 01/06/19 19:36 98.6 F 101 H 16 113/51 L 98 01/06/19 18:09 98 20 98 01/06/19 13:49 96 20 94 L 01/06/19 08:00 96 Weight Admit Weight 213 lb Weight 217 lb 2.48 oz Most Recent Monitor Data Heart Rate from ECG 126 NIBP 141/70 NIBP BP-Mean 93 Respiration from ECG 17 SpO2 99 I&O: 01/05/19 01/06/19 01/07/19 06:59 06:59 06:59 Intake Total 4504 600 240 Output Total 405 1200 750 Balance 4099 -600 -510 Result Diagrams: 01/05/19 04:17 01/05/19 04:17 Additional Labs: Accuchecks 01/06/19 01/06/19 01/06/19 16:04 11:02 05:10 POC Glucose 346 H 224 H 200 H 01/05/19 20:05 POC Glucose 251 H Hospitalist ROS - Review of Systems Respiratory: denies: cough, dry, shortness of breath, hemoptysis, SOB with excertion, pleuritic pain, sputum, wheezing, other Cardiovascular: denies: chest pain, palpitations, orthopnea, paroxysmal noc. dyspnea, edema, light headedness, other Gastrointestinal: denies: nausea, vomiting, abdominal pain, diarrhea, constipation, melena, hematochezia, other Musculoskeletal: reports: leg pain - Medication Medications: Active Medications Generic Name Dose Route Start Last Admin Trade Name Freq PRN Reason Stop Dose Admin Hydrocodone Bitart/Acetaminophen 1 tab 01/03/19 18:11 01/06/19 17:02 [place] 10/325 PO 1 tab Q4H PRN Administration Moderate Pain (4-6) Albuterol/Ipratropium 3 ml 01/04/19 13:00 01/06/19 18:09 Duoneb IPPB 3 ml [id number] TIN Administration Docusate Sodium 100 mg 01/05/19 21:00 01/06/19 08:09 Colace PO 100 mg BID TIN Administration Gabapentin 100 mg 01/04/19 21:00 01/05/19 21:03 Neurontin PO 100 mg HS TIN Administration Glimepiride 4 mg 01/06/19 08:00 01/06/19 16:28 Amaryl PO 4 mg BID-WM TIN Administration Cefepime HCl 1 gm/ Sodium 100 mls @ 200 mls/hr 01/04/19 08:00 01/06/19 19:51 Chloride IVPB 100 mls 08,1999 TIN Administration Insulin Glargine 6 units/ 0.06 mls @ 0 mls/hr 01/04/19 21:00 01/06/19 08:46 Miscellaneous Medication SC 0.06 mls BID TIN Administration Insulin Human Lispro 0 units 01/03/19 18:11 01/06/19 16:24 Humalog SC 4 unit .MODERATE SLIDING SC PRN Administration Moderate Correctional Scale Insulin Human Lispro 0 units 01/03/19 18:11 01/05/19 21:01 Humalog SC 3 unit .BEDTIME SLIDING SC PRN Administration Bedtime Correctional Scale Iron/Minerals/Multivitamins 1 tab 01/04/19 09:00 01/06/19 08:09 Theragran M PO 1 tab DAILY TIN Administration Levothyroxine Sodium 125 mcg 01/05/19 06:00 01/06/19 05:42 Synthroid PO 125 mcg 0600 TIN Administration Losartan Potassium 100 mg 01/06/19 09:00 01/06/19 08:09 Cozaar PO 100 mg DAILY TIN Administration Metformin HCl 500 mg 01/04/19 17:00 01/06/19 16:28 Glucophage PO 500 mg BID-WM TIN Administration Metoprolol Succinate 100 mg 01/04/19 21:00 01/05/19 21:03 Toprol Xl PO 100 mg HS TIN Administration Ondansetron HCl 4 mg 01/03/19 18:11 01/05/19 12:07 Zofran Odt PO 4 mg Q6H PRN Administration Nausea/Vomiting Polyethylene Glycol 17 gm 01/05/19 09:03 01/05/19 15:16 Miralax PO 17 gm DAILYPRN PRN Administration Constipation Prednisone 20 mg 01/05/19 08:00 01/06/19 08:09 Prednisone PO 20 mg QAM-WM TIN Administration Rivaroxaban 20 mg 01/04/19 06:00 01/06/19 05:42 Xarelto PO 20 mg 0600 TIN Administration Rosuvastatin Calcium 20 mg 01/04/19 21:00 01/05/19 21:03 Crestor PO 20 mg HS TIN Administration Sodium Chloride 10 ml 01/04/19 21:00 01/06/19 16:25 Flush - Normal Saline IVF 10 ml Q12HR TIN Administration Sodium Chloride 10 ml 01/04/19 11:12 01/06/19 19:50 Flush - Normal Saline IVF 10 ml PRN PRN Administration Saline Flush Venlafaxine HCl 150 mg 01/05/19 09:00 01/06/19 08:09 Effexor Xr PO 150 mg DAILY TIN Administration - Exam Neck: negative: supple, symmetric, no JVD, no thyromegaly, no lymphadenopathy, no carotid bruit, JVD Heart: negative: RRR, no murmur, no gallops, no rubs, normal peripheral pulses, irregular, diminshed peripheral pulses, murmur present, II/IV, III/IV Respiratory: negative: CTAB, no wheezes, no rales, no ronchi, normal chest expansion, no tachypnea, normal percussion, rales, rhonchi, tachypneic, wheezes Hosp A/P (1) Chronic respiratory failure with hypoxia Code(s): J96.11 - CHRONIC RESPIRATORY FAILURE WITH HYPOXIA Status: Acute (2) Left hip pain Code(s): M25.552 - PAIN IN LEFT HIP Status: Acute (3) Pulmonary fibrosis Code(s): J84.10 - PULMONARY FIBROSIS, UNSPECIFIED Status: Acute (4) DM type 2 (diabetes mellitus, type 2) Status: Chronic Qualifiers: Diabetes mellitus 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 will add muscle relaxant. pt has been up with PT. will continue steroids and stop vanco. will add short acting insulin.
[2019-01-06] MEDS ORDERED: HumaLOG 300 UNITS/3 ML VIAL SC SCH (21:00)
[2019-01-06] MEDS: Rosuvastatin 20 MG TAB PO SCH (21:05)
[2019-01-06] MEDS: Gabapentin 100 MG CAP PO SCH (21:05)
[2019-01-06] MEDS: Cyclobenzaprine 10 MG TAB PO SCH (21:05)
--- NOTE | 2019-01-06 23:23 | EKG ---
Test Reason : SEPSIS TXFR Blood Pressure : / mmHG Vent. Rate : 130 BPM Atrial Rate : 130 BPM P-R Int : 154 ms QRS Dur : 078 ms QT Int : 274 ms P-R-T Axes : 044 048 157 degrees QTc Int : 403 ms Sinus tachycardia Low voltage QRS Nonspecific ST and T wave abnormality Abnormal ECG Confirmed by AFSHIN NOLEN DO ([id number]), commissioning editor JUANJOSE NGUYEN ([id number] on 01/06/2019 11:23:07 PM Referred By: CALLUM Confirmed By:AFSHIN NOLEN DO
[2019-01-07] MEDS: Rivaroxaban 10 MG TAB PO SCH (06:00)
[2019-01-07] MEDS: Levothyroxine Sodium 125 MCG TAB PO SCH (06:01)
[2019-01-07] MEDS: Cefepime 1 GM in Sodium Chloride 0.9% 100 ML IVPB SCH (07:38)
[2019-01-07] MEDS: metFORMIN 500 MG TAB PO SCH ×3 (08:00→16:25)
[2019-01-07] MEDS: HumaLOG 300 UNITS/3 ML VIAL SC SCH ×4 (08:00→16:26)
[2019-01-07] MEDS: Glimepiride 4 MG TAB PO SCH ×3 (08:00→16:25)
[2019-01-07] MEDS: predniSONE 20 MG TAB PO SCH ×2 (08:00→09:30)
[2019-01-07] MEDS: Insulin Glargine 6 UNITS in Pre-Filled Syringe 1 EACH SC SCH ×2 (09:17→20:27)
[2019-01-07] MEDS: Losartan 25 MG TAB PO SCH (09:22)
[2019-01-07] MEDS: Venlafaxine HCl XR 150 MG CAP PO SCH (09:29)
[2019-01-07] MEDS: Docusate 100 MG CAP PO SCH ×2 (09:30→20:27)
[2019-01-07] MEDS: Multivitamin W/ Minerals 1 TAB PO SCH (09:30)
[2019-01-07] MEDS: Cyclobenzaprine 10 MG TAB PO SCH ×3 (09:31→21:13)
[2019-01-07] MEDS: HYDROcodone/Acetaminophen 10/325 mg Tablet PO PRN (12:00)
--- NOTE | 2019-01-07 13:06 | PDOC.HOSPP ---
- Subjective Encounter Date: 01/07/19 Encounter Time: 09:00 Subjective: pt up in bed no complains - Objective Vital Signs & Weight: Vital Signs (12 hours) Temp Pulse Resp BP Pulse Ox 01/07/19 08:22 105 H 18 95 01/07/19 07:56 98 F 100 18 143/64 H 97 01/07/19 07:46 91 L Weight Admit Weight 213 lb Weight 217 lb 2.48 oz Most Recent Monitor Data Heart Rate from ECG 126 NIBP 141/70 NIBP BP-Mean 93 Respiration from ECG 17 SpO2 99 I&O: 01/06/19 01/07/19 01/08/19 06:59 06:59 06:59 Intake Total 600 240 Output Total 1200 750 Balance -600 -510 Result Diagrams: 01/05/19 04:17 01/05/19 04:17 Additional Labs: Accuchecks 01/07/19 01/07/19 01/06/19 09:24 06:32 21:01 POC Glucose 133 H 77 288 H 01/06/19 01/06/19 16:04 11:02 POC Glucose 346 H 224 H Hospitalist ROS - Review of Systems Cardiovascular: denies: chest pain, palpitations, orthopnea, paroxysmal noc. dyspnea, edema, light headedness, other Gastrointestinal: denies: nausea, vomiting, abdominal pain, diarrhea, constipation, melena, hematochezia, other Genitourinary: denies: dysuria, frequency, incontinence, hematuria, retention, other - Medication Medications: Active Medications Generic Name Dose Route Start Last Admin Trade Name Freq PRN Reason Stop Dose Admin Hydrocodone Bitart/Acetaminophen 1 tab 01/03/19 18:11 01/07/19 12:00 [place] 10/325 PO 1 tab Q4H PRN Administration Moderate Pain (4-6) Albuterol/Ipratropium 3 ml 01/04/19 13:00 01/07/19 08:22 Duoneb IPPB 3 ml [id number] TIN Administration Cyclobenzaprine HCl 10 mg 01/06/19 21:00 01/07/19 09:31 Flexeril PO Not Given TID TIN Docusate Sodium 100 mg 01/05/19 21:00 01/07/19 09:30 Colace PO 100 mg BID TIN Administration Glimepiride 4 mg 01/06/19 08:00 01/07/19 09:29 Amaryl PO 4 mg BID-WM TIN Administration Insulin Glargine 6 units/ 0.06 mls @ 0 mls/hr 01/04/19 21:00 01/07/19 09:17 Miscellaneous Medication SC 0.06 mls BID TIN Administration Insulin Human Lispro 0 units 01/03/19 18:11 01/06/19 16:24 Humalog SC 4 unit .MODERATE SLIDING SC PRN Administration Moderate Correctional Scale Insulin Human Lispro 0 units 01/03/19 18:11 01/06/19 21:02 Humalog SC 3 unit .BEDTIME SLIDING SC PRN Administration Bedtime Correctional Scale Insulin Human Lispro 4 units 01/07/19 08:00 01/07/19 12:14 Humalog SC 4 unit TID-WM TIN Administration Iron/Minerals/Multivitamins 1 tab 01/04/19 09:00 01/07/19 09:30 Theragran M PO 1 tab DAILY TIN Administration Levothyroxine Sodium 125 mcg 01/05/19 06:00 01/07/19 06:01 Synthroid PO 125 mcg 0600 TIN Administration Losartan Potassium 100 mg 01/06/19 09:00 01/07/19 09:22 Cozaar PO 100 mg DAILY TIN Administration Metformin HCl 500 mg 01/04/19 17:00 01/07/19 09:30 Glucophage PO 500 mg BID-WM TIN Administration Metoprolol Succinate 100 mg 01/04/19 21:00 01/06/19 23:30 Toprol Xl PO Not Given HS TIN Ondansetron HCl 4 mg 01/03/19 18:11 01/05/19 12:07 Zofran Odt PO 4 mg Q6H PRN Administration Nausea/Vomiting Polyethylene Glycol 17 gm 01/05/19 09:03 01/05/19 15:16 Miralax PO 17 gm DAILYPRN PRN Administration Constipation Prednisone 20 mg 01/05/19 08:00 01/07/19 09:30 Prednisone PO 20 mg QAM-WM TIN Administration Rivaroxaban 20 mg 01/04/19 06:00 01/07/19 06:00 Xarelto PO 20 mg 0600 TIN Administration Rosuvastatin Calcium 20 mg 01/04/19 21:00 01/06/19 21:05 Crestor PO 20 mg HS TIN Administration Sodium Chloride 10 ml 10/10/19 21:00 01/07/19 09:31 Flush - Normal Saline IVF 10 ml Q12HR TIN Administration Sodium Chloride 10 ml 01/04/19 11:12 01/06/19 19:50 Flush - Normal Saline IVF 10 ml PRN PRN Administration Saline Flush Venlafaxine HCl 150 mg 01/05/19 09:00 01/07/19 09:29 Effexor Xr PO 150 mg DAILY TIN Administration - Exam Neck: supple Heart: RRR, no murmur Respiratory: CTAB, no wheezes Gastrointestinal: soft, non-tender Hosp A/P (1) Chronic respiratory failure with hypoxia Code(s): J96.11 - CHRONIC RESPIRATORY FAILURE WITH HYPOXIA Status: Acute (2) Left hip pain Code(s): M25.552 - PAIN IN LEFT HIP Status: Acute (3) Pulmonary fibrosis Code(s): J84.10 - PULMONARY FIBROSIS, UNSPECIFIED Status: Acute (4) DM type 2 (diabetes mellitus, type 2) Status: Chronic Qualifiers: Diabetes mellitus extermination 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 will add muscle relaxant. pt has been up with PT. will continue steroids and stop vanco. will add short acting insulin. 01/07 will stop all abx, will see PT's recommendation. subchondral insufficiency fx ortho following. pt at baseline does not ambulate much only transfers due to her sob. will monitor.
[2019-01-07] MEDS: Benzonatate 100 MG CAP PO PRN (14:44)
[2019-01-07] MEDS: HumaLOG 300 UNITS/3 ML VIAL SC PRN ×2 (16:26→20:42)
[2019-01-07] MEDS: Rosuvastatin 20 MG TAB PO SCH (20:27)
[2019-01-07] MEDS ORDERED: Gabapentin 300 MG CAP PO SCH (21:00)
[2019-01-08] MEDS: Levothyroxine Sodium 125 MCG TAB PO SCH (05:34)
[2019-01-08] MEDS: Rivaroxaban 10 MG TAB PO SCH (05:34)
[2019-01-08] MEDS: Multivitamin W/ Minerals 1 TAB PO SCH (08:05)
[2019-01-08] MEDS: Venlafaxine HCl XR 150 MG CAP PO SCH (08:05)
[2019-01-08] MEDS: HumaLOG 300 UNITS/3 ML VIAL SC SCH ×3 (08:06→16:18)
[2019-01-08] MEDS: Glimepiride 4 MG TAB PO SCH ×2 (08:06→16:16)
[2019-01-08] MEDS: Docusate 100 MG CAP PO SCH ×2 (08:06→20:24)
[2019-01-08] MEDS: Losartan 25 MG TAB PO SCH (08:06)
[2019-01-08] MEDS: predniSONE 20 MG TAB PO SCH (08:06)
[2019-01-08] MEDS: metFORMIN 500 MG TAB PO SCH ×2 (08:12→16:16)
[2019-01-08 09:26] LABS: Hemoglobin 10.4 g/dL (12.0-16.0); Platelet Count 379 thou/uL (130-400)
[2019-01-08] MEDS: Cyclobenzaprine 10 MG TAB PO SCH ×3 (09:30→20:24)
[2019-01-08] MEDS: Insulin Glargine 6 UNITS in Pre-Filled Syringe 1 EACH SC SCH ×2 (09:31→20:25)
[2019-01-08 09:44] LABS: Calc. Creatinine Clearance 120 mL/min (70-130); Estimated GFR-MDRD Greater than 90
[2019-01-08] MEDS: Benzonatate 100 MG CAP PO PRN (10:18)
--- NOTE | 2019-01-08 14:22 | PDOC.HOSPP ---
- Subjective Encounter Date: 01/08/19 Encounter Time: 14:18 Subjective: The patient reports that her mouth is burning and her tongue hurts. She is having difficulty eating because of it. She has no burning on her face but her eyes are burning. She has had chickenpox in the past. The patient also reports that she still has severe knee pain. She is unable to walk and uses a wheelchair. She has had progressively worsenig pain in left hip and knee for a while. SHe has had no falls. Her pain in her hip and knee is dull. She says she has urine incontinence for years but now she has fecal incontinence lately too - Objective Vital Signs & Weight: Vital Signs (12 hours) Temp Pulse Resp BP Pulse Ox 01/08/19 08:00 98 01/08/19 07:33 110 H 14 94 L 01/08/19 07:11 97.8 F 98 20 139/62 98 Weight Admit Weight 213 lb Weight 217 lb 2.48 oz Most Recent Monitor Data Heart Rate from ECG 126 NIBP 141/70 NIBP BP-Mean 93 Respiration from ECG 17 SpO2 99 I&O: 01/07/19 01/08/19 01/09/19 06:59 06:59 06:59 Intake Total 240 960 Output Total 750 Balance -510 960 Result Diagrams: 01/08/19 08:53 01/08/19 08:53 Additional Labs: Accuchecks 01/08/19 01/08/19 01/07/19 11:53 05:29 20:33 POC Glucose 98 106 302 H 01/07/19 01/07/19 15:53 05:51 POC Glucose 347 H 57 L* Hospitalist ROS - Review of Systems Constitutional: reports: chills. denies: fever Respiratory: denies: shortness of breath Cardiovascular: denies: chest pain, palpitations, light headedness Gastrointestinal: denies: nausea, vomiting - Medication Medications: Active Medications Generic Name Dose Route Start Last Admin Trade Name Freq PRN Reason Stop Dose Admin Hydrocodone Bitart/Acetaminophen 1 tab 01/03/19 18:11 01/07/19 12:00 [place] 10/325 PO 1 tab Q4H PRN Administration Moderate Pain (4-6) Albuterol/Ipratropium 3 ml 01/04/19 13:00 01/08/19 07:33 Duoneb IPPB 3 ml [id number] TIN Administration Benzonatate 100 mg 01/07/19 12:37 01/08/19 10:18 Tessalon PO 100 mg TIDPRN PRN Administration Cough Cyclobenzaprine HCl 10 mg 01/06/19 21:00 01/08/19 09:30 Flexeril PO 10 mg TID TIN Administration Docusate Sodium 100 mg 01/05/19 21:00 01/08/19 08:06 Colace PO 100 mg BID TIN Administration Gabapentin 300 mg 01/07/19 21:00 01/07/19 20:27 Neurontin PO 300 mg HS TIN Administration Glimepiride 4 mg 01/06/19 08:00 01/08/19 08:06 Amaryl PO 4 mg BID-WM TIN Administration Insulin Glargine 6 units/ 0.06 mls @ 0 mls/hr 01/04/19 21:00 01/08/19 09:31 Miscellaneous Medication SC 0.06 mls BID TIN Administration Insulin Human Lispro 0 units 01/03/19 18:11 01/07/19 16:26 Humalog SC 8 unit .MODERATE SLIDING SC PRN Administration Moderate Correctional Scale Insulin Human Lispro 0 units 01/03/19 18:11 01/07/19 20:42 Humalog SC 4 unit .BEDTIME SLIDING SC PRN Administration Bedtime Correctional Scale Insulin Human Lispro 4 units 01/07/19 08:00 01/08/19 12:00 Humalog SC Not Given TID-WM TIN Iron/Minerals/Multivitamins 1 tab 01/04/19 09:00 01/08/19 08:05 Theragran M PO 1 tab DAILY TIN Administration Levothyroxine Sodium 125 mcg 01/05/19 06:00 01/08/19 05:34 Synthroid PO 125 mcg 0600 TIN Administration Losartan Potassium 100 mg 01/06/19 09:00 01/08/19 08:06 Cozaar PO 100 mg DAILY TIN Administration Metformin HCl 500 mg 01/04/19 17:00 01/08/19 08:12 Glucophage PO 500 mg BID-WM TIN Administration Metoprolol Succinate 100 mg 01/04/19 21:00 01/07/19 20:29 Toprol Xl PO Not Given HS TIN Ondansetron HCl 4 mg 01/03/19 18:11 01/05/19 12:07 Zofran Odt PO 4 mg Q6H PRN Administration Nausea/Vomiting Polyethylene Glycol 17 gm 01/05/19 09:03 01/05/19 15:16 Miralax PO 17 gm DAILYPRN PRN Administration Constipation Prednisone 20 mg 01/05/19 08:00 01/08/19 08:06 Prednisone PO 20 mg QAM-WM TIN Administration Rivaroxaban 20 mg 01/04/19 06:00 01/08/19 05:34 Xarelto PO 20 mg 0600 TIN Administration Rosuvastatin Calcium 20 mg 01/04/19 21:00 01/07/19 20:27 Crestor PO 20 mg HS TIN Administration Sodium Chloride 10 ml 01/04/19 21:00 01/07/19 20:29 Flush - Normal Saline IVF 10 ml Q12HR TIN Administration Sodium Chloride 10 ml 01/04/19 11:12 01/06/19 19:50 Flush - Normal Saline IVF 10 ml PRN PRN Administration Saline Flush Venlafaxine HCl 150 mg 01/05/19 09:00 01/08/19 08:05 Effexor Xr PO 150 mg DAILY TIN Administration - Exam Eye: PERRL, anicteric sclera ENT: normocephalic atraumatic ENT - other findings: Glossitis, and cheilitis. Dry lips Heart: RRR, no murmur, no gallops Respiratory: normal chest expansion Gastrointestinal: soft, non-tender, non-distended Extremities: no cyanosis, no clubbing, no edema Extremities - other findings: Left knee and left hip very tender to palpation. Has difficulty lifting le Neurological: cranial nerve grossly intact, normal sensation to touch, no focal deficits, no new deficit Neurological - other findings: Difficulty lifting up left leg. Deferred knee reflexes due to pain Musculoskeletal: normal tone, normal strength Psychiatric: normal affect, normal behavior, A&O x 3, oriented to person Hosp A/P - Plan MRI left hip 01/04: marrow edema along posterolateral margin of femoral head, possible sacral insufficiency fracture. Diffuse muscle atrophy with minimal edema associated with atrophy of gluteus mediums and minimus muscles. Lumbar Spine MRI 01/04:degenerative changes of lumbar spine. 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 Knee X ray 01/04: left knee arthroplasty Chest CT 10/9: cardiomegaly, mild vascular congestion. 2 cm pleural based opacity representing atelectasis or dense consolidation Glossitis/cheilitis - will check vitamin B12 and folate levels - trial of famciclovir, if that doesn't work will try fluconazole Sacral insufficiency fracture - noted on MRI left hip - on gabapentin 300 mg qhs, flexeril 10 mg po tid. 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 Getting lantus 6 units here HL: rosuvastatin Hypothyroidism: levothyroxine Hypertension: losartan Pulmonary fibrosis: stable on prednisone DVT s/p IVC filter: xarelto Code status: full code DVT prophylaxis: xarelto
[2019-01-08] MEDS ORDERED: Famciclovir 500 MG TAB PO SCH (15:15)
--- NOTE | 2019-01-08 15:45 | RAD ---
THREE VIEWS OF THE LEFT KNEE: DATE: 01/08/2019. COMPARISON: 07/21/2016 and 01/04/2019. HISTORY: Left knee pain. FINDINGS: When compared to the 2016 examination, the tibial and femoral stems have been removed. The tibial com ponent has been partially removed as well. There is radiopaque material within the distal left femoral shaft consistent with cement. No acute fracture or dislocation is seen. No large knee joint e ffusion. The bones are demineralized. There is an old distal left femoral fracture medially. When compared to the 01/04/2019 examination there has been no significant interval change. IMPRESSION: Three views of the left knee as detailed above. Transcribed Date/Time: 01/08/2019 3:44 PM
[2019-01-08] MEDS: Gabapentin 300 MG CAP PO SCH ×2 (16:16→20:25)
[2019-01-08] MEDS: Lidocaine 5% Patch TD SCH (16:16)
[2019-01-08] MEDS: HumaLOG 300 UNITS/3 ML VIAL SC PRN ×2 (16:19→20:24)
[2019-01-08] MEDS: Rosuvastatin 20 MG TAB PO SCH (20:25)
[2019-01-08 21:23] LABS: White Blood Cell (WBC) Count 11.8 thou/uL (4.8-10.8)
[2019-01-09] MEDS: Lidocaine Patch Removal TOP SCH (04:00)
[2019-01-09] MEDS: Rivaroxaban 10 MG TAB PO SCH (05:38)
[2019-01-09] MEDS: Levothyroxine Sodium 125 MCG TAB PO SCH (05:39)
[2019-01-09 06:26] LABS: Anion Gap 11 mmol/L (10-20); BUN (Urea Nitrogen) 12 mg/dL (9.8-20.1); Calc. Creatinine Clearance 111 mL/min (70-130); Calcium 8.2 mg/dL (7.8-10.44); Carbon Dioxide 26 mmol/L (23-31); Chloride 102 mmol/L (98-107); Estimated GFR-MDRD 83; Glucose 70 mg/dL (83-110); Potassium 3.6 mmol/L (3.5-5.1); Sodium 135 mmol/L (136-145)
[2019-01-09] MEDS: predniSONE 20 MG TAB PO SCH ×2 (08:00→10:14)
[2019-01-09] MEDS: HumaLOG 300 UNITS/3 ML VIAL SC SCH ×3 (08:00→16:58)
[2019-01-09] MEDS: metFORMIN 500 MG TAB PO SCH ×3 (08:00→16:58)
[2019-01-09] MEDS: Glimepiride 4 MG TAB PO SCH ×3 (08:00→16:58)
[2019-01-09] MEDS: Insulin Glargine 6 UNITS in Pre-Filled Syringe 1 EACH SC SCH ×3 (09:00→10:15)
[2019-01-09] MEDS: Gabapentin 300 MG CAP PO SCH ×3 (09:30→20:20)
[2019-01-09] MEDS: Venlafaxine HCl XR 150 MG CAP PO SCH (09:30)
[2019-01-09] MEDS: Docusate 100 MG CAP PO SCH ×2 (09:30→20:20)
[2019-01-09] MEDS: Losartan 25 MG TAB PO SCH (09:30)
[2019-01-09] MEDS: Multivitamin W/ Minerals 1 TAB PO SCH (09:30)
[2019-01-09] MEDS: Cyclobenzaprine 10 MG TAB PO SCH ×3 (09:59→20:19)
[2019-01-09 10:29] LABS: Hemoglobin 9.7 g/dL (12.0-16.0); Mean Corpuscular HGB CONC 32.2 g/dL (32.0-36.0); Mean Corpuscular Hemoglobin 28.9 pg (27.0-31.0); Mean Corpuscular Volume 89.7 fL (78.0-98.0); Platelet Count 383 thou/uL (130-400); RBC Distribution Width 13.6 % (11.5-14.5); Red Blood Cell (RBC) Count 3.36 mill/uL (4.20-5.40); White Blood Cell (WBC) Count 15.7 thou/uL (4.8-10.8)
[2019-01-09 11:15] LABS: Band 10 % (5-11); Lymphocytes 39 % (21-51); MDiff Complete? YES; Monocytes 5 % (0-10); Neutrophil 46 % (42-75); Platelet Morphology Comment Appears Adequate; Polychromasia SLIGHT = 2-3 cells (100X) (0-2/hpf)
[2019-01-09] MEDS ORDERED: Aluminum & Magnesium Hydroxide 60 ML, Lidocaine 2% Viscous Solution 30 ML, diphenhydrAM... SSW PRN (14:09)
--- NOTE | 2019-01-09 14:30 | PDOC.HOSPP ---
- Subjective Encounter Date: 01/09/19 Encounter Time: 14:00 Subjective: Burning mouth - The patient continues to have severe tongue pain and burning as well as around lips. She can barely swallow liquids. Family member states she always gets this after receiving antibiotics, she received cefepime previously during admission Sacral fracture -Patient still unable to lift up left leg, states that lidocaine patch is helping a lot. She was told she isn't surgical candidate do to her COPD. She has had left leg weakness since a fall a few months ago . Left knee pain - improved with lidocaine patch. No swelling - Objective Vital Signs & Weight: Vital Signs (12 hours) Temp Pulse Resp BP Pulse Ox 01/09/19 13:51 105 H 18 96 01/09/19 08:00 99.0 F 105 H 16 133/70 97 01/09/19 07:44 107 H 20 98 01/09/19 04:07 98.3 F 106 H 18 113/57 L 95 Weight Admit Weight 213 lb Weight 217 lb 2.48 oz Most Recent Monitor Data Heart Rate from ECG 126 NIBP 141/70 NIBP BP-Mean 93 Respiration from ECG 17 SpO2 99 I&O: 01/08/19 01/09/19 01/10/19 06:59 06:59 06:59 Intake Total 960 480 Balance 960 480 Result Diagrams: 01/09/19 05:35 01/09/19 05:36 Additional Labs: Accuchecks 01/09/19 01/09/19 01/09/19 10:13 05:38 03:10 POC Glucose 82 76 81 01/09/19 01/09/19 01/08/19 02:45 02:32 20:26 POC Glucose 65 L 52 L* 321 H 01/08/19 16:16 POC Glucose 268 H Hospitalist ROS - Review of Systems ENT: reports: mouth pain, throat pain Respiratory: denies: cough, dry, shortness of breath - Medication Medications: Active Medications Generic Name Dose Route Start Last Admin Trade Name Freq PRN Reason Stop Dose Admin Hydrocodone Bitart/Acetaminophen 1 tab 01/03/19 18:11 01/07/19 12:00 [place] 10/325 PO 1 tab Q4H PRN Administration Moderate Pain (4-6) Benzonatate 100 mg 01/07/19 12:37 01/08/19 10:18 Tessalon PO 100 mg TIDPRN PRN Administration Cough Cyclobenzaprine HCl 10 mg 01/06/19 21:00 01/09/19 09:59 Flexeril PO 10 mg TID TIN Administration Docusate Sodium 100 mg 01/05/19 21:00 01/09/19 09:30 Colace PO 100 mg BID TIN Administration Gabapentin 300 mg 01/08/19 15:00 01/09/19 09:30 Neurontin PO 300 mg TID TIN Administration Glimepiride 4 mg 01/06/19 08:00 01/09/19 10:15 Amaryl PO 4 mg BID-WM TIN Administration Insulin Glargine 6 units/ 0.06 mls @ 0 mls/hr 01/09/19 09:00 01/09/19 10:15 Miscellaneous Medication SC 0.06 mls QAM TIN Administration Insulin Human Lispro 0 units 01/03/19 18:11 01/08/19 16:19 Humalog SC 4 unit .MODERATE SLIDING SC PRN Administration Moderate Correctional Scale Insulin Human Lispro 0 units 01/03/19 18:11 01/08/19 20:24 Humalog SC 4 unit .BEDTIME SLIDING SC PRN Administration Bedtime Correctional Scale Insulin Human Lispro 4 units 01/07/19 08:00 01/09/19 12:50 Humalog SC Not Given TID-WM TIN Iron/Minerals/Multivitamins 1 tab 01/04/19 09:00 01/09/19 09:30 Theragran M PO 1 tab DAILY TIN Administration Levothyroxine Sodium 125 mcg 01/05/19 06:00 01/09/19 05:39 Synthroid PO 125 mcg 0600 TIN Administration Lidocaine 1 patch 01/08/19 16:00 01/08/19 16:16 Lidoderm 5% Patch TD 1 patch 1600 TIN Administration Losartan Potassium 100 mg 01/06/19 09:00 01/09/19 09:30 Cozaar PO 100 mg DAILY TIN Administration Metformin HCl 500 mg 01/04/19 17:00 01/09/19 10:15 Glucophage PO 500 mg BID-WM TIN Administration Metoprolol Succinate 100 mg 01/04/19 21:00 01/08/19 20:26 Toprol Xl PO Not Given HS [facility] Miscellaneous Medication 1 each 01/09/19 04:00 01/09/19 04:00 Lidocaine Patch Removal TOP 1 each 0400 TIN Administration Ondansetron HCl 4 mg 01/03/19 18:11 01/05/19 12:07 Zofran Odt PO 4 mg Q6H PRN Administration Nausea/Vomiting Polyethylene Glycol 17 gm 01/05/19 09:03 01/05/19 15:16 Miralax PO 17 gm DAILYPRN PRN Administration Constipation Prednisone 20 mg 01/05/19 08:00 01/09/19 10:14 Prednisone PO 20 mg QAM-WM TIN Administration Rivaroxaban 20 mg 01/04/19 06:00 01/09/19 05:38 Xarelto PO 20 mg 0600 TIN Administration Rosuvastatin Calcium 20 mg 01/04/19 21:00 01/08/19 20:25 Crestor PO 20 mg HS TIN Administration Sodium Chloride 10 ml 01/04/19 21:00 01/09/19 09:30 Flush - Normal Saline IVF 10 ml Q12HR TIN Administration Sodium Chloride 10 ml 01/04/19 11:12 01/06/19 19:50 Flush - Normal Saline IVF 10 ml PRN PRN Administration Saline Flush Venlafaxine HCl 150 mg 01/05/19 09:00 01/09/19 09:30 Effexor Xr PO 150 mg DAILY TIN Administration - Exam General Appearance: NAD, awake alert Eye: PERRL, anicteric sclera ENT: normocephalic atraumatic, no oropharyngeal lesions ENT - other findings: Mucositis of tongue, red tongue, angular cheilitis Heart: RRR, no murmur, no gallops Respiratory: CTAB, no wheezes, no rales, no ronchi Gastrointestinal: soft, non-tender, non-distended Extremities: no cyanosis, no clubbing, no edema Skin: normal turgor, no lesions, no rashes Neurological: cranial nerve grossly intact, normal sensation to touch, no focal deficits, no new deficit Musculoskeletal: normal tone, normal strength Musculoskeletal - other findings: Patient has left leg weakness, unable to lift it up Psychiatric: A&O x 3 Hosp A/P - Plan [facility] MRI left hip 01/04: marrow edema along posterolateral margin of femoral head, possible sacral insufficiency fracture. Diffuse muscle atrophy with minimal edema associated with atrophy of gluteus mediums and minimus muscles. Lumbar Spine MRI 01/04:degenerative changes of lumbar spine. 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 Knee X ray 01/04: left knee arthroplasty Chest CT 01/03: cardiomegaly, mild vascular congestion. 2 cm pleural based opacity representing atelectasis or dense consolidation Left knee x ray 01/09: old distal left femoral fracture Glossitis/cheilitis - B12 and folate normal. Famciclovir initially reported improvement, but now continues to have pain so will d/c - will try fluconazole for possible angular cheilitis and thrush. 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 Getting lantus 6 units here HL: rosuvastatin Hypothyroidism: levothyroxine Hypertension: losartan Pulmonary fibrosis: stable on prednisone DVT s/p IVC filter: xarelto Code status: full code DVT prophylaxis: xarelto
[2019-01-09] MEDS: Lidocaine 5% Patch TD SCH (15:06)
[2019-01-09] MEDS: HumaLOG 300 UNITS/3 ML VIAL SC PRN ×2 (16:58→20:38)
[2019-01-09] MEDS: Rosuvastatin 20 MG TAB PO SCH (20:20)
[2019-01-09] MEDS ORDERED: Famciclovir 500 MG TAB PO SCH (21:00)
[2019-01-10] MEDS: Lidocaine Patch Removal TOP SCH (04:30)
[2019-01-10 05:00] LABS: #Eosinphils 0.2 thou/uL (0.0-0.7); #Monocytes 1.3 thou/uL (0.11-0.59); #Neutrophils 6.6 thou/uL (1.40-6.50); %Eosinophils 1.3 % (0.0-10.0); %Lymphocytes 38.5 % (21.0-51.0); %Monocytes 9.6 % (0.0-10.0); %Neutrophils 50.7 % (42.0-75.0); Hemoglobin 10.3 g/dL (12.0-16.0); Mean Corpuscular HGB CONC 32.1 g/dL (32.0-36.0); Mean Corpuscular Hemoglobin 28.9 pg (27.0-31.0); Mean Platelet Volume 6.5 fL (7.4-10.4); Platelet Count 479 thou/uL (130-400); RBC Distribution Width 13.5 % (11.5-14.5); Red Blood Cell (RBC) Count 3.55 mill/uL (4.20-5.40); White Blood Cell (WBC) Count 13.1 thou/uL (4.8-10.8)
[2019-01-10 05:25] LABS: Anion Gap 12 mmol/L (10-20); BUN (Urea Nitrogen) 10 mg/dL (9.8-20.1); Calc. Creatinine Clearance 116 mL/min (70-130); Calcium 8.9 mg/dL (7.8-10.44); Carbon Dioxide 27 mmol/L (23-31); Chloride 104 mmol/L (98-107); Estimated GFR-MDRD 88; Glucose 61 mg/dL (83-110); Sodium 139 mmol/L (136-145)
[2019-01-10] MEDS: Levothyroxine Sodium 125 MCG TAB PO SCH (06:37)
[2019-01-10] MEDS: Rivaroxaban 10 MG TAB PO SCH (06:37)
[2019-01-10] MEDS: Multivitamin W/ Minerals 1 TAB PO SCH (08:17)
[2019-01-10] MEDS: Venlafaxine HCl XR 150 MG CAP PO SCH (08:17)
[2019-01-10] MEDS: Fluconazole 100 MG TAB PO SCH (08:17)
[2019-01-10] MEDS: Docusate 100 MG CAP PO SCH ×2 (08:22→20:07)
[2019-01-10] MEDS: metFORMIN 500 MG TAB PO SCH ×2 (08:22→17:08)
[2019-01-10] MEDS: Gabapentin 300 MG CAP PO SCH ×3 (08:22→20:07)
[2019-01-10] MEDS: Glimepiride 4 MG TAB PO SCH (08:22)
[2019-01-10] MEDS: predniSONE 20 MG TAB PO SCH (08:22)
[2019-01-10] MEDS: Cyclobenzaprine 10 MG TAB PO SCH ×3 (08:23→20:07)
[2019-01-10] MEDS: HumaLOG 300 UNITS/3 ML VIAL SC SCH ×4 (08:28→18:42)
[2019-01-10] MEDS: Insulin Glargine 6 UNITS in Pre-Filled Syringe 1 EACH SC SCH (08:29)
[2019-01-10] MEDS: Losartan 25 MG TAB PO SCH (08:33)
--- NOTE | 2019-01-10 11:45 | PQF ---
DATE: 01-10-19 ATTN: DR. CYNDIE SIEGEL Please exercise your independent, professional judgment in responding to the clarification form. Clinical indicators are provided on the bottom of this form for your review Please check appropriate box(s) to clarify if the following diagnosis has been ruled in or ruled out: SEPSIS [ X ] Ruled in diagnosis [ ] Continue to treat [ ] Resolved [ ] Ruled out diagnosis [ ] Other diagnosis [ ] Unable to determine In addition, please specify: Present on Admission (POA): [ X ] Yes [ ] No [ ] Unable to determine For continuity of documentation, please document condition throughout progress notes and discharge summary. Thank You. CLINICAL INDICATORS - SIGNS / SYMPTOMS / LABS: ER DX 01-03-19: SEPSIS TRANSFER, ER DX: PNA, SEPSIS H&P 01-03-19: ASSESSMENT: WHO PRESENTS WITH SEPSIS SYNDROME WITH ELEVATED WBC COUNT. POTENTIAL PNEUMONIA. WBC: 01-04-19: 12.7 01-08-19: 11.8 01-09-19: 15.7 01-10-19: 13.1 CRP: 01-04-19: 2.39 RISK FACTORS: H&P 01-03-19: PRESENTS WITH SEPSIS SYNDROME WITH ELEVATED WHITE BLOOD CELL COUNT. SHE IS TACHYCARDIC AND 2 POTENTIONAL SOURCES INCLUDING POSSIBLE PULMONARY SOURCE VS POTENTIALLY INFECTED JOINT. POTENTIAL PNEUMONIA. THESE FINDINGS COULD BE RELATED TO THE PULMONARY FIBROSIS. TREATMENTS: H&P 01-03-19: ADMITTED TO THE [facility]. BC HAVE ALREADY BEEN OBTAINED. WE WILL GO AHEAD AND PLACE HER ON [facility] IV ANTIBIOTICS AND WE WILL CONSULT DR. HUMPHRIES ER NOTES 01-03-19: IVF NS (This form is maintained as a part of the permanent medical record) 2014 [employer]. All Rights Reserved [email or web address] Office: [phone] [facility]
--- NOTE | 2019-01-10 12:05 | PQF ---
DATE: 01-10-19 ATTN: DR. CYNDIE SIEGEL Please exercise your independent, professional judgment in responding to the clarification form. Clinical indicators are provided on the bottom of this form for your review Please check appropriate box(s) to clarify if the following diagnosis has been ruled in or ruled out: PNEUMONIA [ X] Ruled in diagnosis [ ] Continue to treat [ ] Resolved [ ] Ruled out diagnosis [ ] Other diagnosis [ ] Unable to determine In addition, please specify: Present on Admission (POA): [ ] Yes [ ] No [ ] Unable to determine For continuity of documentation, please document condition throughout progress notes and discharge summary. Thank You. CLINICAL INDICATORS - SIGNS / SYMPTOMS / LABS: ER DX 01-03-19: PNA, SEPSIS H&P 01-03-19: POTENTIAL PNEUMONIA. THESE FINDINGS COULD BE RELATED TO THE PULMONARY FIBROSIS. CONSULT NOTE DR. 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 All Rights Reserved [email or web address] Office: [phone] [facility]
[2019-01-10] MEDS: Acyclovir 400 mg Tablet PO SCH ×2 (15:21→20:07)
[2019-01-10] MEDS: Lidocaine 5% Patch TD SCH (15:21)
[2019-01-10 15:59] LABS: Iron 11 ug/dL (50-170); Iron Binding Capacity, Total 260 mcg/dL (265-497)
--- NOTE | 2019-01-10 17:26 | PDOC.HOSPP ---
- Subjective Encounter Date: 01/10/19 Encounter Time: 17:24 Subjective: Patient still reports severe pain whenever she puts anything in her mouth. She states her lips burn. She has mild sore throat, no fevers. Left leg pain stable with lidocaine patch. - Objective Vital Signs & Weight: Vital Signs (12 hours) Temp Pulse Resp BP Pulse Ox 01/10/19 12:51 98 18 92 L 01/10/19 08:32 98.7 F 91 19 143/66 H 95 01/10/19 07:50 104 H 18 92 L 01/10/19 07:43 95 Weight Admit Weight 213 lb Weight 217 lb 2.48 oz Most Recent Monitor Data Heart Rate from ECG 126 NIBP 141/70 NIBP BP-Mean 93 Respiration from ECG 17 SpO2 99 I&O: 01/09/19 01/10/19 01/11/19 06:59 06:59 06:59 Intake Total 480 720 Balance 480 720 Result Diagrams: 01/10/19 03:49 01/10/19 03:49 Additional Labs: Accuchecks 01/10/19 01/10/19 01/10/19 16:13 11:16 06:10 POC Glucose 390 H 185 H 100 01/10/19 01/10/19 01/09/19 05:45 05:10 20:24 POC Glucose 65 L 57 L* 312 H Hospitalist ROS - Review of Systems Constitutional: denies: fever, chills Eyes: denies: vision change - Medication Medications: Active Medications Generic Name Dose Route Start Last Admin Trade Name Freq PRN Reason Stop Dose Admin Hydrocodone Bitart/Acetaminophen 1 tab 01/03/19 18:11 01/07/19 12:00 [place] 10/325 PO 1 tab Q4H PRN Administration Moderate Pain (4-6) Acyclovir 400 mg 01/10/19 15:00 01/10/19 15:21 Zovirax PO 400 mg TID TIN Administration Albuterol/Ipratropium 3 ml 01/09/19 19:00 01/10/19 12:51 Duoneb NEB 3 ml [id number] TIN Administration Benzonatate 100 mg 01/07/19 12:37 01/08/19 10:18 Tessalon PO 100 mg TIDPRN PRN Administration Cough Al Hydroxide/Mg Hydroxide 60 0 ml 01/09/19 14:09 01/10/19 14:36 ml/ Lidocaine HCl 30 ml/ SSW 10 ml Diphenhydramine HCl 75 mg PRN PRN Administration Mouth Irritation Cyclobenzaprine HCl 10 mg 01/06/19 21:00 01/10/19 15:21 Flexeril PO 10 mg TID TIN Administration Docusate Sodium 100 mg 01/05/19 21:00 01/10/19 08:22 Colace PO 100 mg BID TIN Administration Fluconazole 100 mg 01/10/19 09:00 01/10/19 08:17 Diflucan PO 100 mg DAILY TIN Administration Gabapentin 300 mg 01/08/19 15:00 01/10/19 15:21 Neurontin PO 300 mg TID TIN Administration Insulin Human Lispro 0 units 01/03/19 18:11 01/09/19 16:58 Humalog SC 10 unit .MODERATE SLIDING SC PRN Administration Moderate Correctional Scale Insulin Human Lispro 0 units 01/03/19 18:11 01/09/19 20:38 Humalog SC 4 unit .BEDTIME SLIDING SC PRN Administration Bedtime Correctional Scale Insulin Human Lispro 4 units 01/07/19 08:00 01/10/19 17:07 Humalog SC Not Given TID- TIN Iron/Minerals/Multivitamins 1 tab 01/04/19 09:00 01/10/19 08:17 Theragran M PO 1 tab DAILY TIN Administration Levothyroxine Sodium 125 mcg 01/05/19 06:00 01/10/19 06:37 Synthroid PO 125 mcg 0600 TIN Administration Lidocaine 1 patch 01/08/19 16:00 01/10/19 15:21 Lidoderm 5% Patch TD 1 patch 1600 TIN Administration Losartan Potassium 100 mg 01/06/19 09:00 01/10/19 08:33 Cozaar PO 100 mg DAILY TIN Administration Metformin HCl 500 mg 01/04/19 17:00 01/10/19 17:08 Glucophage PO 500 mg BID-WM TIN Administration Metoprolol Succinate 100 mg 01/04/19 21:00 01/09/19 20:22 Toprol Xl PO Not Given HS [facility] Miscellaneous Medication 1 each 01/09/19 04:00 01/10/19 04:30 Lidocaine Patch Removal TOP 1 each 0400 TIN Administration Ondansetron HCl 4 mg 01/03/19 18:11 01/05/19 12:07 Zofran Odt PO 4 mg Q6H PRN Administration Nausea/Vomiting Pantoprazole Sodium 40 mg 01/10/19 09:00 01/10/19 08:17 Protonix PO 40 mg DAILY TIN Administration Polyethylene Glycol 17 gm 01/05/19 09:03 01/05/19 15:16 Miralax PO 17 gm DAILYPRN PRN Administration Constipation Prednisone 20 mg 01/05/19 08:00 01/10/19 08:22 Prednisone PO 20 mg QAM-WM TIN Administration Rivaroxaban 20 mg 01/04/19 06:00 01/10/19 06:37 Xarelto PO 20 mg 0600 TIN Administration Rosuvastatin Calcium 20 mg 01/04/19 21:00 01/09/19 20:20 Crestor PO 20 mg HS TIN Administration Sodium Chloride 10 ml 01/04/19 21:00 01/10/19 08:24 Flush - Normal Saline IVF 10 ml Q12HR TIN Administration Sodium Chloride 10 ml 01/04/19 11:12 01/06/19 19:50 Flush - Normal Saline IVF 10 ml PRN PRN Administration Saline Flush Venlafaxine HCl 150 mg 01/05/19 09:00 01/10/19 08:17 Effexor Xr PO 150 mg DAILY TIN Administration - Exam General Appearance: NAD, awake alert Eye: PERRL, anicteric sclera ENT: normocephalic atraumatic, no oropharyngeal lesions ENT - other findings: Patient's tongue enlarged, erythematous, ulcers vs vesicle on back tongue Neck: negative: supple, no JVD Heart: RRR, no murmur, no gallops Respiratory: CTAB, no wheezes, no rales, no ronchi Gastrointestinal: soft, non-tender, non-distended Musculoskeletal - other findings: Left hip tenderness. Unable to lift up left leg Psychiatric: normal affect, normal behavior, A&O x 3, oriented to person Hosp A/P - Plan MRI left hip 01/04: marrow edema along posterolateral margin of femoral head, possible sacral insufficiency fracture. Diffuse muscle atrophy with minimal edema associated with atrophy of gluteus mediums and minimus muscles. Lumbar Spine MRI 01/04:degenerative changes of lumbar spine. 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 Knee X ray 01/04: left knee arthroplasty Chest CT 01/03: cardiomegaly, mild vascular congestion. 2 cm pleural based opacity representing atelectasis or dense consolidation Left knee x ray 01/09: old distal left femoral fracture Glossitis/cheilitis - B12 and folate normal. 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 Getting lantus 6 units here HL: rosuvastatin Hypothyroidism: levothyroxine Hypertension: losartan Pulmonary fibrosis: stable on prednisone DVT s/p IVC filter: xarelto Code status: full code DVT prophylaxis: xarelto
[2019-01-10] MEDS: Rosuvastatin 20 MG TAB PO SCH (20:07)
[2019-01-11] MEDS: Lidocaine Patch Removal TOP SCH (04:49)
[2019-01-11] MEDS: Levothyroxine Sodium 125 MCG TAB PO SCH (06:15)
[2019-01-11] MEDS: Rivaroxaban 10 MG TAB PO SCH (06:15)
[2019-01-11 06:52] LABS: #Basophils 0.1 thou/uL (0.0-0.2); #Eosinphils 0.3 thou/uL (0.0-0.7); #Monocytes 1.3 thou/uL (0.11-0.59); #Neutrophils 8.5 thou/uL (1.40-6.50); %Basophils 0.4 % (0.0-1.0); %Eosinophils 2.1 % (0.0-10.0); %Lymphocytes 32.8 % (21.0-51.0); %Monocytes 8.6 % (0.0-10.0); %Neutrophils 56.1 % (42.0-75.0); Hemoglobin 11.4 g/dL (12.0-16.0); Mean Corpuscular HGB CONC 31.7 g/dL (32.0-36.0); Mean Corpuscular Hemoglobin 28.8 pg (27.0-31.0); Mean Corpuscular Volume 90.9 fL (78.0-98.0); Mean Platelet Volume 6.5 fL (7.4-10.4); Platelet Count 622 thou/uL (130-400); RBC Distribution Width 13.4 % (11.5-14.5); Red Blood Cell (RBC) Count 3.96 mill/uL (4.20-5.40); White Blood Cell (WBC) Count 15.1 thou/uL (4.8-10.8)
[2019-01-11] MEDS: HYDROcodone/Acetaminophen 10/325 mg Tablet PO PRN (07:12)
[2019-01-11 08:46] LABS: Hemoglobin 10.7 g/dL (12.0-16.0); Platelet Count 594 thou/uL (130-400)
[2019-01-11] MEDS: Docusate 100 MG CAP PO SCH ×2 (09:22→22:24)
[2019-01-11] MEDS: Venlafaxine HCl XR 150 MG CAP PO SCH (09:22)
[2019-01-11] MEDS: Fluconazole 100 MG TAB PO SCH (09:22)
[2019-01-11] MEDS: predniSONE 20 MG TAB PO SCH (09:23)
[2019-01-11] MEDS: Losartan 25 MG TAB PO SCH (09:23)
[2019-01-11] MEDS: Gabapentin 300 MG CAP PO SCH ×3 (09:23→22:24)
[2019-01-11] MEDS: Multivitamin W/ Minerals 1 TAB PO SCH (09:23)
[2019-01-11] MEDS: Acyclovir 400 mg Tablet PO SCH ×3 (09:24→22:25)
[2019-01-11] MEDS: Cyclobenzaprine 10 MG TAB PO SCH ×3 (09:24→22:25)
[2019-01-11] MEDS: HumaLOG 300 UNITS/3 ML VIAL SC SCH ×3 (09:26→17:10)
[2019-01-11] MEDS: metFORMIN 500 MG TAB PO SCH ×2 (09:32→17:12)
--- NOTE | 2019-01-11 12:58 | PRG ---
DATE OF SERVICE: 01/11/2019 SUBJECTIVE: This is orthopedic reexamination of Iveth, who is a mutual patient of ours. Our initial examination was that her left knee was probably not the etiology of her discomfort, but more of a neurologic origin and problem. Re-examination of her MRI of the lumbar spine and pelvis continue to support this. Structurally, her hip looks good as does the pelvis. No evidence of significant fracture or effusion. X-rays of the knee remain unchanged and clinical examination of the knee remain unchanged. She describes her pain extending from the dorsum of her foot up to her hip and into the left buttock. I have examined her knee serially and she has no mechanical findings there and her ligamentous exam is normal, and the patient of note has not walked in over a year. 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 What is interesting is that she has had a footdrop on the left leg for about the same time and the etiology of which I am uncertain about. OBJECTIVE: Her foot drop is still present. Her knee exam is nonprovocative. Her hip examination is also nonprovocative mechanically with internal-external rotation. Straight leg raise is difficult to elicit due to the patient's habitus and persistent discomfort. She has a hypersensitivity with light touch to the knee as well as dorsum of the foot and the area around the hip proximally. Again, reexamination of her skin fails to reveal any rashes. IMPRESSION: I believe the patient has a primarily a neurological issue. It could be similar to meralgia paresthetica or a neuritis or lumbar radiculitis. Her subjective description tends to fit best with a lumbar L5 radiculopathy and this seemed to be supported with the left footdrop. If that is not the case, then consideration of other neurological problems more proximal to include thoracic cervical or even centrally mediated issues such as meningioma. At this point, my recommend direct treatment with Pain Management consult for either diagnostic injections such as ilioinguinal or iliohypogastric. From an orthopedic standpoint, I have determined the knee is not the etiology nor is the hip and at this point, have very little to offer in terms of direct treatment or surgical options. We will continue to follow. Job ID: [id number]
[2019-01-11] MEDS: Lidocaine 5% Patch TD SCH (15:42)
[2019-01-11] MEDS: HumaLOG 300 UNITS/3 ML VIAL SC PRN ×2 (17:11→22:26)
--- NOTE | 2019-01-11 19:41 | PDOC.HOSPP ---
- Subjective Encounter Date: 01/11/19 Encounter Time: 02:30 Subjective: The patient was seen twice at 2:00 and again at 5:13. The patient states that her pain is well controlled. She was eating a hamburger without much difficulty. States she still has some burning but it is less. She reports mild headache on the right side. No fevers however white count has increased slightly. Blood sugar low this morning, patient states she just ate a glucerna for dinner yesterday and half a sandwich. She seemed confused and was talking about how a nurse had to help another man with hypoglycemia. Patient at times seems to talk as if she is at home and forgets she is in the hospital. At 5:00 pm was called for confusion. Patient knew she was in hospital and stated date correctly. However occasionally some sentences didn't make much sense. Patient noted to have left leg weakness from fracture for months now, no new deficits noted. - Objective Vital Signs & Weight: Vital Signs (12 hours) Temp Pulse Resp BP BP Pulse Ox 01/11/19 19:09 97.9 F 109 H 20 129/59 L 98 01/11/19 18:21 99 18 93 L 01/11/19 17:19 98.3 F 01/11/19 17:15 136/80 01/11/19 13:40 95 20 01/11/19 08:10 97.9 F 92 14 144/65 H 91 L 01/11/19 08:00 93 L Weight Admit Weight 213 lb Weight 217 lb 2.48 oz Most Recent Monitor Data Heart Rate from ECG 126 NIBP 141/70 NIBP BP-Mean 93 Respiration from ECG 17 SpO2 99 I&O: 01/10/19 01/11/19 01/12/19 06:59 06:59 06:59 Intake Total 720 1400 Balance 720 1400 Result Diagrams: 01/11/19 08:27 01/11/19 08:27 Additional Labs: Accuchecks 01/11/19 01/11/19 01/11/19 16:58 11:16 06:15 POC Glucose 357 H 117 H 83 01/11/19 01/11/19 01/10/19 05:44 05:14 20:07 POC Glucose 65 L 55 L* 359 H Hospitalist ROS - Review of Systems Constitutional: denies: fever, chills, sweats - Medication Medications: Active Medications Generic Name Dose Route Start Last Admin Trade Name Freq PRN Reason Stop Dose Admin Hydrocodone Bitart/Acetaminophen 1 tab 01/03/19 18:11 01/11/19 07:12 [place] 10/325 PO 1 tab Q4H PRN Administration Moderate Pain (4-6) Acyclovir 400 mg 01/10/19 15:00 01/11/19 15:37 Zovirax PO 400 mg TID TIN Administration Albuterol/Ipratropium 3 ml 01/09/19 19:00 01/11/19 18:21 Duoneb NEB 3 ml [id number] TIN Administration Benzonatate 100 mg 01/07/19 12:37 01/08/19 10:18 Tessalon PO 100 mg TIDPRN PRN Administration Cough Al Hydroxide/Mg Hydroxide 60 0 ml 01/09/19 14:09 01/10/19 14:36 ml/ Lidocaine HCl 30 ml/ SSW 10 ml Diphenhydramine HCl 75 mg PRN PRN Administration Mouth Irritation Cyclobenzaprine HCl 10 mg 01/06/19 21:00 01/11/19 15:37 Flexeril PO 10 mg TID TIN Administration Docusate Sodium 100 mg 01/05/19 21:00 01/11/19 09:22 Colace PO 100 mg BID TIN Administration Fluconazole 100 mg 01/10/19 09:00 01/11/19 09:22 Diflucan PO 100 mg DAILY TIN Administration Gabapentin 300 mg 01/08/19 15:00 01/11/19 15:37 Neurontin PO 300 mg TID TIN Administration Insulin Human Lispro 0 units 01/03/19 18:11 01/11/19 17:11 Humalog SC 10 unit .MODERATE SLIDING SC PRN Administration Moderate Correctional Scale Insulin Human Lispro 0 units 01/03/19 18:11 01/09/19 20:38 Humalog SC 4 unit .BEDTIME SLIDING SC PRN Administration Bedtime Correctional Scale Insulin Human Lispro 4 units 01/07/19 08:00 01/11/19 17:10 Humalog SC 4 unit TID-WM TIN Administration Iron/Minerals/Multivitamins 1 tab 01/04/19 09:00 01/11/19 09:23 Theragran M PO 1 tab DAILY TIN Administration Levothyroxine Sodium 125 mcg 01/05/19 06:00 01/11/19 06:15 Synthroid PO 125 mcg 0600 TIN Administration Lidocaine 1 patch 01/08/19 16:00 01/11/19 15:42 Lidoderm 5% Patch TD 1 patch 1600 TIN Administration Losartan Potassium 100 mg 01/06/19 09:00 01/11/19 09:23 Cozaar PO 100 mg DAILY TIN Administration Metformin HCl 500 mg 01/04/19 17:00 01/11/19 17:12 Glucophage PO 500 mg BID-WM TIN Administration Metoprolol Succinate 100 mg 01/04/19 21:00 01/10/19 20:07 Toprol Xl PO 100 mg HS TIN Administration Miscellaneous Medication 1 each 01/09/19 04:00 01/11/19 04:49 Lidocaine Patch Removal TOP Not Given 0400 [facility] Ondansetron HCl 4 mg 01/03/19 18:11 01/05/19 12:07 Zofran Odt PO 4 mg Q6H PRN Administration Nausea/Vomiting Pantoprazole Sodium 40 mg 01/10/19 09:00 01/11/19 09:23 Protonix PO 40 mg DAILY TIN Administration Polyethylene Glycol 17 gm 01/05/19 09:03 01/05/19 15:16 Miralax PO 17 gm DAILYPRN PRN Administration Constipation Rivaroxaban 20 mg 01/04/19 06:00 01/11/19 06:15 Xarelto PO 20 mg 0600 TIN Administration Rosuvastatin Calcium 20 mg 01/04/19 21:00 01/10/19 20:07 Crestor PO 20 mg HS TIN Administration Sodium Chloride 10 ml 01/04/19 21:00 01/11/19 09:25 Flush - Normal Saline IVF 10 ml Q12HR TIN Administration Sodium Chloride 10 ml 01/04/19 11:12 01/06/19 19:50 Flush - Normal Saline IVF 10 ml PRN PRN Administration Saline Flush Venlafaxine HCl 150 mg 01/05/19 09:00 01/11/19 09:22 Effexor Xr PO 150 mg DAILY TIN Administration - Exam General Appearance: NAD, awake alert Eye: PERRL, anicteric sclera ENT: normocephalic atraumatic, no oropharyngeal lesions Neck: supple, symmetric, no JVD Heart: RRR, no murmur, no gallops Respiratory: CTAB, no wheezes, no rales Respiratory - other findings: On 2L of oxygen Gastrointestinal: soft, non-tender, non-distended Extremities: no cyanosis, no clubbing, no edema Skin: normal turgor, no lesions, no rashes Neurological: cranial nerve grossly intact, normal sensation to touch, no focal deficits, no new deficit Musculoskeletal: normal tone, normal strength, no muscle wasting Psychiatric: normal affect, normal behavior, A&O x 3, oriented to person Hosp A/P - Plan MRI left hip 01/04: marrow edema along posterolateral margin of femoral head, possible sacral insufficiency fracture. Diffuse muscle atrophy with minimal edema associated with atrophy of gluteus mediums and minimus muscles. Lumbar Spine MRI 01/04:degenerative changes of lumbar spine. 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 Knee X ray 01/04: left knee arthroplasty Chest CT 01/03: cardiomegaly, mild vascular congestion. 2 cm pleural based opacity representing atelectasis or dense consolidation Left knee x ray 01/09: old distal left femoral fracture Acute encephalopathy - likely from hospital delirium - repeat UA, recheck BMP, chest Xray, CT head given on xarelto and sons desire to rule out stroke - MRI brain Glossitis/cheilitis - B12 and folate normal. Famciclovir initially reported improvement, discontinued but reordering acyclovir due to possible vesicular lesions on back of tongue - continue fluconazole for possible angular cheilitis - strep culture negative, HSV culture pending - magic mouthwash Hypoglycemia - discontinued lantus and discontinued glipizide due to morning glucose 50's on two occasions - sliding scale prn Sacral insufficiency fracture - noted on MRI left hip - gabapentin tid, flexeril tid, lidocaine patch - PT - appreciate ortho revisiting patient with regards to prognosis of fracture Sepsis from pneumonia - had temp of 100.2, elevated HR, received cefepime from 01/03 - 01/07. Discontinued. Dr. Mckeon signed off Leukocytosis - WBC of 15.1, may be chronic from prednisone. Has 2 cm pleural based opacity on CT chest, will repeat chest X ray. Per Dr. 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
--- NOTE | 2019-01-11 19:52 | CT ---
CT Brain WO Con: 01/11/2019 7:03 PM CLINICAL HISTORY: Confusion. COMPARISON: October 28, 2010 FINDINGS: Hemorrhage: None. Ventricular system: Mild compensatory dilatation. Cerebral parenchyma: Parenchymal volume loss with increased CSF space overlying each frontal convexit y, progressive from prior exam indicating progressive atrophy. Midline shift: None. Mass: No mass effect. Calvarium: Normal. Visualized Paranasal sinuses: Clear. IMPRESSION: No acute intracranial hemorrhage or mass effect. Progressive parenchymal atrophy preferentially involving the frontal lobes with compensatory dilatati on of ventricular system.
[2019-01-11] MEDS ORDERED: Iron Sucrose Complex 200 MG in Sodium Chloride 0.9% 250 ML 250 ML IVPB SCH (20:00)
[2019-01-11 20:36] LABS: Anion Gap 12 mmol/L (10-20); BUN (Urea Nitrogen) 11 mg/dL (9.8-20.1); Calc. Creatinine Clearance 98 mL/min (70-130); Carbon Dioxide 26 mmol/L (23-31); Chloride 100 mmol/L (98-107); Estimated GFR-MDRD 72; Glucose 229 mg/dL (83-110); Potassium 4.1 mmol/L (3.5-5.1); Sodium 134 mmol/L (136-145)
--- NOTE | 2019-01-11 20:37 | RAD ---
Frontal view chest CLINICAL HISTORY: Leukocytosis and confusion FINDINGS: There is multifocal bilateral pulmonary parenchymal opacification. There is also pleural-ba sed density at the lower chest, left greater than right. Cardiac silhouette and pulmonary vasculature are prominent. There is vascular calcification. IMPRESSION: Multifocal bilateral pulmonary parenchymal and pleural-based densities. This indicates a multifocal bilateral pneumonia with associated pleural fluid. Recommend continued imaging follow-up. Transcribed Date/Time: 01/11/2019 8:47 PM
[2019-01-11] MEDS: Rosuvastatin 20 MG TAB PO SCH (22:24)
[2019-01-12] MEDS: Piperacillin/Tazobactam 3.375 GM in Sodium Chloride 0.9% 100 ML IVPB SCH ×4 (00:59→18:42)
[2019-01-12] MEDS: Benzonatate 100 MG CAP PO PRN (01:17)
[2019-01-12] MEDS: Lidocaine Patch Removal TOP SCH (04:30)
[2019-01-12 05:51] LABS: Hemoglobin 9.8 g/dL (12.0-16.0); Mean Corpuscular HGB CONC 32.1 g/dL (32.0-36.0); Mean Corpuscular Hemoglobin 28.8 pg (27.0-31.0); Mean Corpuscular Volume 89.8 fL (78.0-98.0); Mean Platelet Volume 6.3 fL (7.4-10.4); Platelet Count 615 thou/uL (130-400); RBC Distribution Width 13.4 % (11.5-14.5); White Blood Cell (WBC) Count 14.4 thou/uL (4.8-10.8)
[2019-01-12] MEDS: Rivaroxaban 10 MG TAB PO SCH (06:06)
[2019-01-12] MEDS: Levothyroxine Sodium 125 MCG TAB PO SCH (06:07)
[2019-01-12 06:12] LABS: ALT (SGPT) 15 U/L (8-55); AST (SGOT) 19 U/L (5-34); Albumin 2.7 g/dL (3.4-4.8); Alkaline Phosphatase 50 U/L (40-110); Anion Gap 9 mmol/L (10-20); BUN (Urea Nitrogen) 13 mg/dL (9.8-20.1); Bilirubin, Total 0.3 mg/dL (0.2-1.2); Calc. Creatinine Clearance 101 mL/min (70-130); Calcium 8.7 mg/dL (7.8-10.44); Carbon Dioxide 29 mmol/L (23-31); Chloride 101 mmol/L (98-107); Estimated GFR-MDRD 74; Globulin 3.3 g/dL (2.4-3.5); Glucose 96 mg/dL (83-110); Potassium 4.1 mmol/L (3.5-5.1); Sodium 135 mmol/L (136-145)
[2019-01-12] MEDS ORDERED: Lorazepam 0.5 MG TAB PO SCH (09:00)
[2019-01-12] MEDS: Losartan 25 MG TAB PO SCH (09:31)
[2019-01-12] MEDS: Cyclobenzaprine 10 MG TAB PO SCH ×3 (09:31→21:27)
[2019-01-12] MEDS: Fluconazole 100 MG TAB PO SCH (09:32)
[2019-01-12] MEDS: Docusate 100 MG CAP PO SCH ×2 (09:32→21:27)
[2019-01-12] MEDS: Venlafaxine HCl XR 150 MG CAP PO SCH (09:32)
[2019-01-12] MEDS: Acyclovir 400 mg Tablet PO SCH ×3 (09:33→21:27)
[2019-01-12] MEDS: Gabapentin 300 MG CAP PO SCH ×3 (09:33→21:27)
[2019-01-12] MEDS: metFORMIN 500 MG TAB PO SCH ×2 (09:33→18:43)
[2019-01-12] MEDS: Multivitamin W/ Minerals 1 TAB PO SCH (09:33)
[2019-01-12 10:39] LABS: Bilirubin Negative (Negative); Blood, Urine Trace (Negative); Clarity Clear (Clear); Glucose, Urine (Dipstick) Normal (Negative); Leukocyte Negative Leu/uL (Negative); Nitrite Negative (Negative); Protein, Urine (Dipstick) 10 mg/dL (Neg-Trace); Squamous Epithelial 0-3 HPF (0-3); Transitional Epithelial 0-3 HPF (None Seen); Urobilinogen Normal mg/dL (Less than 2); WBC/HPF 0-3 HPF (0-3)
[2019-01-12 10:48] LABS: Bacteria/HPF Rare-Few HPF (None Seen)
[2019-01-12] MEDS: HumaLOG 300 UNITS/3 ML VIAL SC SCH ×3 (10:49→18:43)
[2019-01-12] MEDS: HumaLOG 300 UNITS/3 ML VIAL SC PRN ×2 (14:18→18:43)
[2019-01-12] MEDS: Lidocaine 5% Patch TD SCH (16:54)
--- NOTE | 2019-01-12 20:46 | PDOC.HOSPP ---
- Subjective Encounter Date: 01/12/19 Encounter Time: 13:30 Subjective: The patient had confusion overnight, was seeing things on the wall. CT head ordered showed no acute disease. Son concerned about stroke. MRI ordered but patient felt claustrophobic and was unable to do it. Overnight, patient was reportedly coughing all night, today she is coughing a little bit with only mild amounts of phlegm. She has some shortness of breath. Chest X ray showed multifocal pneumonia, zosyn restarted. Continues to complain of difficulty with word-finding, feels she can't move her tongue properly and there's some burning of her tongue. - Objective Vital Signs & Weight: Vital Signs (12 hours) Temp Pulse Resp BP Pulse Ox 01/12/19 19:25 98.0 F 100 16 128/60 96 01/12/19 19:23 97 20 97 01/12/19 16:24 98.2 F 96 18 121/51 L 95 01/12/19 13:10 68 16 01/12/19 13:00 96 01/12/19 09:00 96 Weight Admit Weight 213 lb Weight 217 lb 2.48 oz Most Recent Monitor Data Heart Rate from ECG 126 NIBP 141/70 NIBP BP-Mean 93 Respiration from ECG 17 SpO2 99 I&O: 01/11/19 01/12/19 01/13/19 06:59 06:59 06:59 Intake Total 1400 Balance 1400 Result Diagrams: 01/12/19 05:31 01/12/19 05:31 Additional Labs: Accuchecks 01/12/19 01/12/19 01/12/19 20:27 16:07 12:28 POC Glucose 146 H 218 H 273 H Hospitalist ROS - Review of Systems Constitutional: denies: fever, chills - Medication Medications: Active Medications Generic Name Dose Route Start Last Admin Trade Name Freq PRN Reason Stop Dose Admin Hydrocodone Bitart/Acetaminophen 1 tab 01/03/19 18:11 01/11/19 07:12 [place] 10/325 PO 1 tab Q4H PRN Administration Moderate Pain (4-6) Acyclovir 400 mg 01/10/19 15:00 01/12/19 14:16 Zovirax PO 400 mg TID TIN Administration Albuterol/Ipratropium 3 ml 01/09/19 19:00 01/12/19 19:23 Duoneb NEB 3 ml [id number] TIN Administration Benzonatate 100 mg 01/07/19 12:37 01/12/19 01:17 Tessalon PO 100 mg TIDPRN PRN Administration Cough Al Hydroxide/Mg Hydroxide 60 0 ml 01/09/19 14:09 01/10/19 14:36 ml/ Lidocaine HCl 30 ml/ SSW 10 ml Diphenhydramine HCl 75 mg PRN PRN Administration Mouth Irritation Cyclobenzaprine HCl 10 mg 01/06/19 21:00 01/12/19 14:16 Flexeril PO 10 mg TID TIN Administration Docusate Sodium 100 mg 01/05/19 21:00 01/12/19 09:32 Colace PO 100 mg BID TIN Administration Fluconazole 100 mg 01/10/19 09:00 01/12/19 09:32 Diflucan PO 100 mg DAILY TIN Administration Gabapentin 300 mg 01/08/19 15:00 01/12/19 14:16 Neurontin PO 300 mg TID TIN Administration Piperacillin Sod/Tazobactam 100 mls @ 200 mls/hr 01/12/19 01:00 01/12/19 18: 42 Sod 3.375 gm/ Sodium Chloride IVPB 100 mls 0100,0700,1300,1900 TIN Administration Insulin Human Lispro 0 units 01/03/19 18:11 01/12/19 18:43 Humalog SC 4 unit .MODERATE SLIDING SC PRN Administration Moderate Correctional Scale Insulin Human Lispro 0 units 01/03/19 18:11 01/11/19 22:26 Humalog SC 2 unit .BEDTIME SLIDING SC PRN Administration Bedtime Correctional Scale Insulin Human Lispro 4 units 01/07/19 08:00 01/12/19 18:43 Humalog SC 4 unit TID-WM TIN Administration Iron/Minerals/Multivitamins 1 tab 01/04/19 09:00 01/12/19 09:33 Theragran M PO 1 tab DAILY TIN Administration Levothyroxine Sodium 125 mcg 01/05/19 06:00 01/12/19 06:07 Synthroid PO 125 mcg 0600 TIN Administration Lidocaine 1 patch 01/08/19 16:00 01/12/19 16:54 Lidoderm 5% Patch TD 1 patch 1600 TIN Administration Losartan Potassium 100 mg 01/06/19 09:00 01/12/19 09:31 Cozaar PO 100 mg DAILY TIN Administration Metformin HCl 500 mg 01/04/19 17:00 01/12/19 18:43 Glucophage PO 500 mg BID-WM TIN Administration Metoprolol Succinate 100 mg 01/04/19 21:00 01/11/19 22:24 Toprol Xl PO 100 mg HS TIN Administration Miscellaneous Medication 1 each 01/09/19 04:00 01/12/19 04:30 Lidocaine Patch Removal TOP 1 each 0400 TIN Administration Ondansetron HCl 4 mg 01/03/19 18:11 01/05/19 12:07 Zofran Odt PO 4 mg Q6H PRN Administration Nausea/Vomiting Pantoprazole Sodium 40 mg 01/10/19 09:00 01/12/19 09:32 Protonix PO 40 mg DAILY TIN Administration Polyethylene Glycol 17 gm 01/05/19 09:03 01/05/19 15:16 Miralax PO 17 gm DAILYPRN PRN Administration Constipation Rivaroxaban 20 mg 01/04/19 06:00 01/12/19 06:06 Xarelto PO 20 mg 0600 TIN Administration Rosuvastatin Calcium 20 mg 01/04/19 21:00 01/11/19 22:24 Crestor PO 20 mg HS TIN Administration Sodium Chloride 10 ml 01/04/19 21:00 01/12/19 11:16 Flush - Normal Saline IVF Not Given Q12HR TIN Sodium Chloride 10 ml 01/04/19 11:12 01/06/19 19:50 Flush - Normal Saline IVF 10 ml PRN PRN Administration Saline Flush Venlafaxine HCl 150 mg 01/05/19 09:00 01/12/19 09:32 Effexor Xr PO 150 mg DAILY TIN Administration - Exam General Appearance: NAD, awake alert Eye: PERRL, anicteric sclera ENT: normocephalic atraumatic, no oropharyngeal lesions Neck: supple, no JVD Heart: RRR, no murmur, no gallops, no rubs Respiratory: CTAB, no wheezes, no rales Gastrointestinal: soft, non-tender, non-distended Extremities: no cyanosis, no clubbing, no edema Skin: normal turgor, no lesions, no rashes Neurological: cranial nerve grossly intact, normal sensation to touch, no focal deficits, no new deficit Musculoskeletal: normal tone, normal strength, no muscle wasting Psychiatric: normal affect, normal behavior, A&O x 3, oriented to person Hosp A/P - Plan MRI left hip 01/04: marrow edema along posterolateral margin of femoral head, possible sacral insufficiency fracture. Diffuse muscle atrophy with minimal edema associated with atrophy of gluteus mediums and minimus muscles. Lumbar Spine MRI 01/04:degenerative changes of lumbar spine. 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 Knee X ray 01/04: left knee arthroplasty Chest CT 01/03: cardiomegaly, mild vascular congestion. 2 cm pleural based opacity representing atelectasis or dense consolidation Left knee x ray 01/09: old distal left femoral fracture CT head: parenchymal atrophy in frontal lobes Chest X ray: multifocal bilateral pneumonia with pleural fluid Acute encephalopathy - likely from hospital delirium vs dementia - repeat UA negative, BMP unremarkable. Chest X ray showed multifocal pneumonia and with WBC of 15 which could just be reactive from prednisone, zosyn ordered overnight. - CT head shoewd parenchymal atrophy in frontal lobes with dilation of ventricular system. Will order seroquel 12.5 mg qhs prn for agitation - chest X ray showing multifocal pneumonia, resumed zosyn day 1. MRI brain unable to be done since patient wants to be sedated. No new focal deficits Glossitis/cheilitis - B12 and folate normal. Ordered acyclovir due to possible vesicular lesions on back of tongue - continue fluconazole for possible angular cheilitis - strep culture negative, HSV culture pending - one dose IV iron given for low iron sat 4 - magic mouthwash Hypoglycemia - discontinued lantus and discontinued glipizide due to morning glucose 50's on two consecutive occasions - sliding scale prn Sacral insufficiency fracture - noted on MRI left hip - gabapentin tid, flexeril tid, lidocaine patch - PT - appreciate ortho revisiting patient with regards to prognosis of fracture Sepsis from pneumonia - had temp of 100.2, elevated HR, received cefepime from 01/03 - 01/07. Resumed zosyn 01/12 due to multifocal pneumonia on Chest X ray today - informed Dr. Mckeon Leukocytosis Pleural [address] chest - downtrending. Discontinued prednisone yesterday, ordered zosyn. Continue to trend - needs outpatient f/u of nodule - needs repeat chest X ray in [address] 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
[2019-01-12] MEDS: Rosuvastatin 20 MG TAB PO SCH (21:27)
[2019-01-13] MEDS: Piperacillin/Tazobactam 3.375 GM in Sodium Chloride 0.9% 100 ML IVPB SCH ×4 (01:01→19:35)
[2019-01-13] MEDS: Rivaroxaban 10 MG TAB PO SCH (05:07)
[2019-01-13] MEDS: Lidocaine Patch Removal TOP SCH (05:07)
[2019-01-13] MEDS: Levothyroxine Sodium 125 MCG TAB PO SCH (05:07)
[2019-01-13 06:03] LABS: Band 2 % (5-11); Eosinophils 2 % (0-10); Hemoglobin 9.6 g/dL (12.0-16.0); Hypochromia SLIGHT = 6-15 cells (100X) (0-5/hpf); Lymphocytes 44 % (21-51); MDiff Complete? YES; Mean Corpuscular HGB CONC 32.7 g/dL (32.0-36.0); Mean Corpuscular Hemoglobin 29.3 pg (27.0-31.0); Mean Corpuscular Volume 89.7 fL (78.0-98.0); Monocytes 7 % (0-10); Neutrophil 45 % (42-75); Platelet Count 670 thou/uL (130-400); Platelet Morphology Comment Appears Increased; RBC Distribution Width 13.6 % (11.5-14.5); Red Blood Cell (RBC) Count 3.27 mill/uL (4.20-5.40); White Blood Cell (WBC) Count 13.3 thou/uL (4.8-10.8)
[2019-01-13 06:14] LABS: ALT (SGPT) 15 U/L (8-55); AST (SGOT) 22 U/L (5-34); Albumin 2.7 g/dL (3.4-4.8); Alkaline Phosphatase 50 U/L (40-110); Anion Gap 12 mmol/L (10-20); BUN (Urea Nitrogen) 12 mg/dL (9.8-20.1); Bilirubin, Total 0.3 mg/dL (0.2-1.2); Calc. Creatinine Clearance 102 mL/min (70-130); Calcium 8.6 mg/dL (7.8-10.44); Carbon Dioxide 27 mmol/L (23-31); Chloride 101 mmol/L (98-107); Estimated GFR-MDRD 76; Globulin 3.5 g/dL (2.4-3.5); Glucose 117 mg/dL (83-110); Protein, Total 6.2 g/dL (6.0-8.3); Sodium 136 mmol/L (136-145)
[2019-01-13] MEDS: HYDROcodone/Acetaminophen 10/325 mg Tablet PO PRN (08:51)
[2019-01-13] MEDS: Fluconazole 100 MG TAB PO SCH (08:53)
[2019-01-13] MEDS: Venlafaxine HCl XR 150 MG CAP PO SCH (08:53)
[2019-01-13] MEDS: Cyclobenzaprine 10 MG TAB PO SCH ×3 (08:53→19:37)
[2019-01-13] MEDS: metFORMIN 500 MG TAB PO SCH ×2 (08:54→17:04)
[2019-01-13] MEDS: Docusate 100 MG CAP PO SCH ×2 (08:54→19:36)
[2019-01-13] MEDS: Losartan 25 MG TAB PO SCH (08:54)
[2019-01-13] MEDS: Acyclovir 400 mg Tablet PO SCH ×3 (08:54→19:36)
[2019-01-13] MEDS: Gabapentin 300 MG CAP PO SCH ×3 (08:54→19:36)
[2019-01-13] MEDS: Multivitamin W/ Minerals 1 TAB PO SCH (08:54)
[2019-01-13] MEDS: HumaLOG 300 UNITS/3 ML VIAL SC SCH ×3 (08:54→17:04)
--- NOTE | 2019-01-13 09:39 | PDOC.HOSPP ---
- Subjective Encounter Date: 01/13/19 Encounter Time: 09:38 Subjective: Ms. Christiansen was seen today in follow-up of severe lumbar disc disease, and pulmonary fibrosis. She says she has been coughing more over the past few days. She says it is deeper, and has thick green, and brown sputum. She also continues to have pain in her left knee and leg. - Objective Vital Signs & Weight: Vital Signs (12 hours) Temp Pulse Resp BP Pulse Ox 01/13/19 08:00 98.2 F 86 18 138/62 98 01/13/19 06:46 69 18 100 Weight Admit Weight 213 lb Weight 217 lb 2.48 oz Most Recent Monitor Data Heart Rate from ECG 126 NIBP 141/70 NIBP BP-Mean 93 Respiration from ECG 17 SpO2 99 I&O: 01/12/19 01/13/19 01/14/19 06:59 06:59 06:59 Intake Total 700 Balance 700 Result Diagrams: 01/13/19 05:38 01/13/19 05:38 Additional Labs: Accuchecks 01/12/19 01/12/19 01/12/19 20:27 16:07 12:28 POC Glucose 146 H 218 H 273 H Hospitalist ROS - Medication Medications: Active Medications Generic Name Dose Route Start Last Admin Trade Name Freq PRN Reason Stop Dose Admin Hydrocodone Bitart/Acetaminophen 1 tab 01/03/19 18:11 01/13/19 08:51 [place] 10/325 PO 1 tab Q4H PRN Administration Moderate Pain (4-6) Acyclovir 400 mg 01/10/19 15:00 01/13/19 08:54 Zovirax PO 400 mg TID TIN Administration Albuterol/Ipratropium 3 ml 01/09/19 19:00 01/13/19 06:46 Duoneb NEB 3 ml [id number] TIN Administration Benzonatate 100 mg 01/07/19 12:37 01/12/19 01:17 Tessalon PO 100 mg TIDPRN PRN Administration Cough Al Hydroxide/Mg Hydroxide 60 0 ml 01/09/19 14:09 01/10/19 14:36 ml/ Lidocaine HCl 30 ml/ SSW 10 ml Diphenhydramine HCl 75 mg PRN PRN Administration Mouth Irritation Cyclobenzaprine HCl 10 mg 01/06/19 21:00 01/13/19 08:53 Flexeril PO 10 mg TID TIN Administration Docusate Sodium 100 mg 01/05/19 21:00 01/13/19 08:54 Colace PO 100 mg BID TIN Administration Fluconazole 100 mg 01/10/19 09:00 01/13/19 08:53 Diflucan PO 100 mg DAILY TIN Administration Gabapentin 300 mg 01/08/19 15:00 01/13/19 08:54 Neurontin PO 300 mg TID TIN Administration Piperacillin Sod/Tazobactam 100 mls @ 200 mls/hr 01/12/19 01:00 01/13/19 06: 49 Sod 3.375 gm/ Sodium Chloride IVPB 100 mls 0100,0700,1300,1900 TIN Administration Insulin Human Lispro 0 units 01/03/19 18:11 01/12/19 18:43 Humalog SC 4 unit .MODERATE SLIDING SC PRN Administration Moderate Correctional Scale Insulin Human Lispro 0 units 01/03/19 18:11 01/11/19 22:26 Humalog SC 2 unit .BEDTIME SLIDING SC PRN Administration Bedtime Correctional Scale Insulin Human Lispro 4 units 01/07/19 08:00 01/13/19 08:54 Humalog SC 4 unit TID-WM TIN Administration Iron/Minerals/Multivitamins 1 tab 01/04/19 09:00 01/13/19 08:54 Theragran M PO 1 tab DAILY TIN Administration Levothyroxine Sodium 125 mcg 01/05/19 06:00 01/13/19 05:07 Synthroid PO 125 mcg 0600 TIN Administration Lidocaine 1 patch 01/08/19 16:00 01/12/19 16:54 Lidoderm 5% Patch TD 1 patch 1600 TIN Administration Losartan Potassium 100 mg 01/06/19 09:00 01/13/19 08:54 Cozaar PO 100 mg DAILY TIN Administration Metformin HCl 500 mg 01/04/19 17:00 01/13/19 08:54 Glucophage PO 500 mg BID-WM TIN Administration Metoprolol Succinate 100 mg 01/04/19 21:00 01/12/19 21:27 Toprol Xl PO 100 mg HS TIN Administration Miscellaneous Medication 1 each 01/09/19 04:00 01/13/19 05:07 Lidocaine Patch Removal TOP 1 each 0400 TIN Administration Ondansetron HCl 4 mg 01/03/19 18:11 01/05/19 12:07 Zofran Odt PO 4 mg Q6H PRN Administration Nausea/Vomiting Pantoprazole Sodium 40 mg 01/10/19 09:00 01/13/19 08:54 Protonix PO 40 mg DAILY TIN Administration Polyethylene Glycol 17 gm 01/05/19 09:03 01/05/19 15:16 Miralax PO 17 gm DAILYPRN PRN Administration Constipation Rivaroxaban 20 mg 01/04/19 06:00 01/13/19 05:07 Xarelto PO 20 mg 0600 TIN Administration Rosuvastatin Calcium 20 mg 01/04/19 21:00 01/12/19 21:27 Crestor PO 20 mg HS TIN Administration Sodium Chloride 10 ml 01/04/19 21:00 01/13/19 08:55 Flush - Normal Saline IVF Not Given Q12HR TIN Sodium Chloride 10 ml 01/04/19 11:12 01/06/19 19:50 Flush - Normal Saline IVF 10 ml PRN PRN Administration Saline Flush Venlafaxine HCl 150 mg 01/05/19 09:00 01/13/19 08:53 Effexor Xr PO 150 mg DAILY TIN Administration - Exam Eye: PERRL, anicteric sclera Heart: RRR, no murmur, no gallops, no rubs, normal peripheral pulses Respiratory: no wheezes, no ronchi, rales Gastrointestinal: soft, non-tender, non-distended, normal bowel sounds, no palpable masses, no hepatomegaly, no splenomegaly Extremities: no cyanosis, no edema Hosp A/P (1) Lumbar disc disease with radiculopathy Code(s): M51.16 - INTERVERTEBRAL DISC DISORDERS W RADICULOPATHY, LUMBAR REGION Status: Acute (2) Left knee pain Code(s): M25.562 - PAIN IN LEFT KNEE Status: Acute (3) Left hip pain Code(s): M25.552 - PAIN IN LEFT HIP Status: Acute (4) DM type 2 (diabetes mellitus, type 2) Status: Chronic Qualifiers: Diabetes mellitus termite control representative insulin use: without penitentiary use Diabetes mellitus complication status: with unspecified complications (5) HTN (hypertension) Code(s): I10 - ESSENTIAL (PRIMARY) HYPERTENSION Status: Chronic Qualifiers: Hypertension type: essential hypertension Qualified Code(s): I10 - Essential (primary) hypertension (6) Obesity (BMI 30-39.9) Code(s): E66.9 - OBESITY, UNSPECIFIED Status: Chronic (7) Chronic respiratory failure with hypoxia Code(s): J96.11 - CHRONIC RESPIRATORY FAILURE WITH HYPOXIA Status: Acute (8) Pulmonary fibrosis Code(s): J84.10 - PULMONARY FIBROSIS, UNSPECIFIED Status: Acute - Plan * ? Possible HAP- continue Zosyn * Lumbar Disc disease- with radicular pain- continue symptom management * Chronic Respiratory failure- stable * Pulmonary Fibrosis- stable * Severe deconditioning- awaiting transfer to [facility]-
[2019-01-13] MEDS: Lidocaine 5% Patch TD SCH (15:44)
[2019-01-13] MEDS: Benzonatate 100 MG CAP PO PRN (19:36)
[2019-01-13] MEDS: Rosuvastatin 20 MG TAB PO SCH (19:36)
[2019-01-14] MEDS: Piperacillin/Tazobactam 3.375 GM in Sodium Chloride 0.9% 100 ML IVPB SCH ×4 (00:13→18:32)
[2019-01-14] MEDS: Rivaroxaban 10 MG TAB PO SCH (05:08)
[2019-01-14] MEDS: Levothyroxine Sodium 125 MCG TAB PO SCH (05:08)
[2019-01-14] MEDS: Lidocaine Patch Removal TOP SCH (05:08)
[2019-01-14] MEDS: Fluconazole 100 MG TAB PO SCH (08:05)
[2019-01-14] MEDS: Docusate 100 MG CAP PO SCH ×2 (08:06→20:13)
[2019-01-14] MEDS: Losartan 25 MG TAB PO SCH (08:06)
[2019-01-14] MEDS: Venlafaxine HCl XR 150 MG CAP PO SCH (08:06)
[2019-01-14] MEDS: Acyclovir 400 mg Tablet PO SCH ×3 (08:06→20:13)
[2019-01-14] MEDS: metFORMIN 500 MG TAB PO SCH ×2 (08:06→17:43)
[2019-01-14] MEDS: Gabapentin 300 MG CAP PO SCH ×3 (08:06→20:13)
[2019-01-14] MEDS: Multivitamin W/ Minerals 1 TAB PO SCH (08:06)
[2019-01-14] MEDS: HumaLOG 300 UNITS/3 ML VIAL SC SCH ×3 (08:12→17:44)
[2019-01-14] MEDS: Benzonatate 100 MG CAP PO PRN (09:41)
[2019-01-14] MEDS: Cyclobenzaprine 10 MG TAB PO SCH ×3 (09:42→20:12)
[2019-01-14 10:23] LABS: Hemoglobin 9.6 g/dL (12.0-16.0); Platelet Count 677 thou/uL (130-400)
[2019-01-14 10:24] LABS: #Basophils 0.1 thou/uL (0.0-0.2); #Eosinphils 0.3 thou/uL (0.0-0.7); #Lymphocytes 4.9 thou/uL (1.20-3.40); #Monocytes 0.7 thou/uL (0.11-0.59); #Neutrophils 6.8 thou/uL (1.40-6.50); %Basophils 0.6 % (0.0-1.0); %Eosinophils 2.7 % (0.0-10.0); %Lymphocytes 37.9 % (21.0-51.0); %Monocytes 5.8 % (0.0-10.0); %Neutrophils 53.1 % (42.0-75.0); Hemoglobin 9.6 g/dL (12.0-16.0); Mean Corpuscular HGB CONC 32.3 g/dL (32.0-36.0); Mean Corpuscular Hemoglobin 29.2 pg (27.0-31.0); Mean Corpuscular Volume 90.4 fL (78.0-98.0); Mean Platelet Volume 5.9 fL (7.4-10.4); Platelet Count 658 thou/uL (130-400); RBC Distribution Width 13.7 % (11.5-14.5); White Blood Cell (WBC) Count 12.8 thou/uL (4.8-10.8)
--- NOTE | 2019-01-14 12:37 | PDOC.HOSPP ---
- Subjective Encounter Date: 01/14/19 Encounter Time: 12:35 Subjective: Ms. Christiansen was seen today in follow-up of severe pain in her left leg. She says the pain is a bit improved. She continues to have a cough, which she says is productive. She denies any increase in dyspnea. - Objective Vital Signs & Weight: Vital Signs (12 hours) Temp Pulse Resp BP Pulse Ox 01/14/19 08:05 97.8 F 91 20 124/56 L 95 01/14/19 08:00 94 L 01/14/19 07:20 85 18 98 Weight Admit Weight 213 lb Weight 217 lb 2.48 oz Most Recent Monitor Data Heart Rate from ECG 126 NIBP 141/70 NIBP BP-Mean 93 Respiration from ECG 17 SpO2 99 I&O: 01/13/19 01/14/19 01/15/19 06:59 06:59 06:59 Intake Total 700 900 Balance 700 900 Result Diagrams: 01/14/19 10:05 01/14/19 10:05 Additional Labs: Accuchecks 01/14/19 01/14/19 01/13/19 11:24 05:10 19:02 POC Glucose 215 H 158 H 162 H 01/13/19 16:11 POC Glucose 256 H Hospitalist ROS - Medication Medications: Active Medications Generic Name Dose Route Start Last Admin Trade Name Freq PRN Reason Stop Dose Admin Acyclovir 400 mg 01/10/19 15:00 01/14/19 08:06 Zovirax PO 400 mg TID TIN Administration Albuterol/Ipratropium 3 ml 01/09/19 19:00 01/14/19 07:20 Duoneb NEB 3 ml [id number] TIN Administration Benzonatate 100 mg 01/07/19 12:37 01/14/19 09:41 Tessalon PO 100 mg TIDPRN PRN Administration Cough Al Hydroxide/Mg Hydroxide 60 0 ml 01/09/19 14:09 01/10/19 14:36 ml/ Lidocaine HCl 30 ml/ SSW 10 ml Diphenhydramine HCl 75 mg PRN PRN Administration Mouth Irritation Cyclobenzaprine HCl 10 mg 01/06/19 21:00 01/14/19 09:42 Flexeril PO 10 mg TID TIN Administration Docusate Sodium 100 mg 01/05/19 21:00 01/14/19 08:06 Colace PO 100 mg BID TIN Administration Fluconazole 100 mg 01/10/19 09:00 01/14/19 08:05 Diflucan PO 100 mg DAILY TIN Administration Gabapentin 300 mg 01/08/19 15:00 01/14/19 08:06 Neurontin PO 300 mg TID TIN Administration Piperacillin Sod/Tazobactam 100 mls @ 200 mls/hr 01/12/19 01:00 01/14/19 06: 03 Sod 3.375 gm/ Sodium Chloride IVPB 100 mls 0100,0700,1300,1900 TIN Administration Insulin Human Lispro 4 units 01/07/19 08:00 01/14/19 08:12 Humalog SC 4 unit TID- TIN Administration Iron/Minerals/Multivitamins 1 tab 01/04/19 09:00 01/14/19 08:06 Theragran M PO 1 tab DAILY TIN Administration Levothyroxine Sodium 125 mcg 01/05/19 06:00 01/14/19 05:08 Synthroid PO 125 mcg 0600 TIN Administration Lidocaine 1 patch 01/08/19 16:00 01/13/19 15:44 Lidoderm 5% Patch TD 1 patch 1600 TIN Administration Losartan Potassium 100 mg 01/06/19 09:00 01/14/19 08:06 Cozaar PO 100 mg DAILY TIN Administration Metformin HCl 500 mg 01/04/19 17:00 01/14/19 08:06 Glucophage PO 500 mg BID-WM TIN Administration Metoprolol Succinate 100 mg 01/04/19 21:00 01/13/19 19:36 Toprol Xl PO 100 mg HS TIN Administration Miscellaneous Medication 1 each 01/09/19 04:00 01/14/19 05:08 Lidocaine Patch Removal TOP 1 each 0400 TIN Administration Ondansetron HCl 4 mg 01/03/19 18:11 01/05/19 12:07 Zofran Odt PO 4 mg Q6H PRN Administration Nausea/Vomiting Pantoprazole Sodium 40 mg 01/10/19 09:00 01/14/19 08:06 Protonix PO 40 mg DAILY TIN Administration Polyethylene Glycol 17 gm 01/05/19 09:03 01/05/19 15:16 Miralax PO 17 gm DAILYPRN PRN Administration Constipation Rivaroxaban 20 mg 01/04/19 06:00 01/14/19 05:08 Xarelto PO 20 mg 0600 TIN Administration Rosuvastatin Calcium 20 mg 01/04/19 21:00 01/13/19 19:36 Crestor PO 20 mg HS TIN Administration Sodium Chloride 10 ml 01/04/19 21:00 01/14/19 09:42 Flush - Normal Saline IVF 10 ml Q12HR TIN Administration Sodium Chloride 10 ml 01/04/19 11:12 01/06/19 19:50 Flush - Normal Saline IVF 10 ml PRN PRN Administration Saline Flush Venlafaxine HCl 150 mg 01/05/19 09:00 01/14/19 08:06 Effexor Xr PO 150 mg DAILY TIN Administration - Exam Eye: PERRL Heart: RRR, no murmur, no gallops, no rubs, normal peripheral pulses Respiratory: rales (+ bi-basilar rales,), wheezes Gastrointestinal: soft, non-tender, non-distended, normal bowel sounds, no palpable masses, no hepatomegaly, no splenomegaly, no guarding Extremities: no clubbing, 1+ LE edema Hosp A/P (1) Lumbar disc disease with radiculopathy Code(s): M51.16 - INTERVERTEBRAL DISC DISORDERS W RADICULOPATHY, LUMBAR REGION Status: Acute (2) Left knee pain Code(s): M25.562 - PAIN IN LEFT KNEE Status: Acute (3) Left hip pain Code(s): M25.552 - PAIN IN LEFT HIP Status: Acute (4) DM type 2 (diabetes mellitus, type 2) Status: Chronic Qualifiers: Diabetes mellitus termite inspector insulin use: without longterm use Diabetes mellitus complication status: with unspecified complications (5) HTN (hypertension) Code(s): I10 - ESSENTIAL (PRIMARY) HYPERTENSION Status: Chronic Qualifiers: Hypertension type: essential hypertension Qualified Code(s): I10 - Essential (primary) hypertension (6) Obesity (BMI 30-39.9) Code(s): E66.9 - OBESITY, UNSPECIFIED Status: Chronic (7) Chronic respiratory failure with hypoxia Code(s): J96.11 - CHRONIC RESPIRATORY FAILURE WITH HYPOXIA Status: Acute (8) Pulmonary fibrosis Code(s): J84.10 - PULMONARY FIBROSIS, UNSPECIFIED Status: Acute - Plan * ? Possible HAP-on Zosyn- can de-escalate antibiotics tomorrow * Pulmonary Fibrosis- stable- she is dependent on oxygen- add Mucinex * Lumbar Disc disease- with radicular pain- continue symptom management * Chronic Respiratory failure- stable * Pulmonary Fibrosis- stable * Severe deconditioning- awaiting transfer to [facility]-
[2019-01-14] MEDS: guaiFENesin ER 600 MG TAB PO SCH (15:36)
[2019-01-14] MEDS: Lidocaine 5% Patch TD SCH (15:37)
[2019-01-14] MEDS: Polyethylene Glycol 3350 17 GM Packet PO PRN (20:10)
[2019-01-14] MEDS: Rosuvastatin 20 MG TAB PO SCH (20:12)
[2019-01-14] MEDS ORDERED: guaiFENesin ER 600 MG TAB PO SCH (21:00)
[2019-01-15] MEDS: Piperacillin/Tazobactam 3.375 GM in Sodium Chloride 0.9% 100 ML IVPB SCH ×3 (01:49→14:35)
[2019-01-15] MEDS: guaiFENesin ER 600 MG TAB PO SCH ×2 (04:01→16:02)
[2019-01-15] MEDS: Benzonatate 100 MG CAP PO PRN (04:09)
[2019-01-15] MEDS: Lidocaine Patch Removal TOP SCH (04:10)
[2019-01-15] MEDS: Rivaroxaban 10 MG TAB PO SCH (06:25)
[2019-01-15] MEDS: Levothyroxine Sodium 125 MCG TAB PO SCH (06:26)
[2019-01-15 07:59] VITALS: BP 131/60; TEMP 97.7
[2019-01-15] MEDS: Losartan 25 MG TAB PO SCH (09:46)
[2019-01-15] MEDS: Gabapentin 300 MG CAP PO SCH ×2 (09:46→16:01)
[2019-01-15] MEDS: Docusate 100 MG CAP PO SCH (09:47)
[2019-01-15] MEDS: Multivitamin W/ Minerals 1 TAB PO SCH (09:47)
[2019-01-15] MEDS: Venlafaxine HCl XR 150 MG CAP PO SCH (09:47)
[2019-01-15] MEDS: Fluconazole 100 MG TAB PO SCH (09:47)
[2019-01-15] MEDS: metFORMIN 500 MG TAB PO SCH (09:47)
[2019-01-15] MEDS: Cyclobenzaprine 10 MG TAB PO SCH ×2 (09:53→16:01)
[2019-01-15] MEDS: Acyclovir 400 mg Tablet PO SCH ×2 (09:53→16:01)
[2019-01-15] MEDS: HumaLOG 300 UNITS/3 ML VIAL SC SCH ×2 (09:55→14:15)
[2019-01-15] MEDS ORDERED: guaiFENesin/Codeine Phosphate 200 mg/20 mg 10 ml UD Cup PO PRN (14:02)
--- NOTE | 2019-01-15 14:04 | PDOC.HOSPP ---
- Subjective Encounter Date: 01/15/19 Encounter Time: 14:03 Subjective: Ms. Christiansen was seen today in follow-up of Lumbar disc disease. - Objective Vital Signs & Weight: Vital Signs (12 hours) Temp Pulse Resp BP Pulse Ox 01/15/19 13:28 101 H 20 96 01/15/19 08:16 97 01/15/19 08:15 91 16 97 01/15/19 07:54 97.7 F 89 18 131/60 98 01/15/19 04:30 96 Weight Admit Weight 213 lb Weight 217 lb 2.48 oz Most Recent Monitor Data Heart Rate from ECG 126 NIBP 141/70 NIBP BP-Mean 93 Respiration from ECG 17 SpO2 99 I&O: 01/14/19 01/15/19 01/16/19 06:59 06:59 06:59 Intake Total 900 360 Balance 900 360 Result Diagrams: 01/14/19 10:05 01/14/19 10:05 Additional Labs: Accuchecks 01/15/19 01/15/19 01/15/19 12:09 06:48 05:46 POC Glucose 248 H 195 H 167 H 01/14/19 01/14/19 21:33 16:27 POC Glucose 168 H 210 H Hospitalist ROS - Medication Medications: Active Medications Generic Name Dose Route Start Last Admin Trade Name Freq PRN Reason Stop Dose Admin Acyclovir 400 mg 01/10/19 15:00 01/15/19 09:53 Zovirax PO 400 mg TID TIN Administration Albuterol/Ipratropium 3 ml 01/09/19 19:00 01/15/19 13:28 Duoneb NEB 3 ml [id number] TIN Administration Benzonatate 100 mg 01/07/19 12:37 01/15/19 04:09 Tessalon PO 100 mg TIDPRN PRN Administration Cough Al Hydroxide/Mg Hydroxide 60 0 ml 01/09/19 14:09 01/10/19 14:36 ml/ Lidocaine HCl 30 ml/ SSW 10 ml Diphenhydramine HCl 75 mg PRN PRN Administration Mouth Irritation Cyclobenzaprine HCl 10 mg 01/06/19 21:00 01/15/19 09:53 Flexeril PO 10 mg TID TIN Administration Docusate Sodium 100 mg 01/05/19 21:00 01/15/19 09:47 Colace PO 100 mg BID TIN Administration Fluconazole 100 mg 01/10/19 09:00 01/15/19 09:47 Diflucan PO 100 mg DAILY TIN Administration Gabapentin 300 mg 01/08/19 15:00 01/15/19 09:46 Neurontin PO 300 mg TID TIN Administration Guaifenesin 1,200 mg 01/14/19 16:00 01/15/19 04:01 Mucinex PO 1,200 mg 0400,1600 TIN Administration Piperacillin Sod/Tazobactam 100 mls @ 200 mls/hr 01/12/19 01:00 01/15/19 06: 26 Sod 3.375 gm/ Sodium Chloride IVPB 100 mls 0100,0700,1300,1900 TIN Administration Insulin Human Lispro 4 units 01/07/19 08:00 01/15/19 09:55 Humalog SC 4 unit TID- TIN Administration Iron/Minerals/Multivitamins 1 tab 01/04/19 09:00 01/15/19 09:47 Theragran M PO 1 tab DAILY TIN Administration Levothyroxine Sodium 125 mcg 01/05/19 06:00 01/15/19 06:26 Synthroid PO 125 mcg 0600 TIN Administration Lidocaine 1 patch 01/08/19 16:00 01/14/19 15:37 Lidoderm 5% Patch TD 1 patch 1600 TIN Administration Losartan Potassium 100 mg 01/06/19 09:00 01/15/19 09:46 Cozaar PO 100 mg DAILY TIN Administration Metformin HCl 500 mg 01/04/19 17:00 01/15/19 09:47 Glucophage PO 500 mg BID-WM TIN Administration Miscellaneous Medication 1 each 01/09/19 04:00 01/15/19 04:10 Lidocaine Patch Removal TOP 1 each 0400 TIN Administration Ondansetron HCl 4 mg 01/03/19 18:11 01/05/19 12:07 Zofran Odt PO 4 mg Q6H PRN Administration Nausea/Vomiting Pantoprazole Sodium 40 mg 01/10/19 09:00 01/15/19 09:47 Protonix PO 40 mg DAILY TIN Administration Polyethylene Glycol 17 gm 01/05/19 09:03 01/14/19 20:10 Miralax PO 17 gm DAILYPRN PRN Administration Constipation Rivaroxaban 20 mg 01/04/19 06:00 01/15/19 06:25 Xarelto PO 20 mg 0600 TIN Administration Rosuvastatin Calcium 20 mg 01/04/19 21:00 01/14/19 20:12 Crestor PO 20 mg HS TIN Administration Sodium Chloride 10 ml 01/04/19 21:00 01/15/19 09:54 Flush - Normal Saline IVF Not Given Q12HR TIN Sodium Chloride 10 ml 01/04/19 11:12 01/15/19 06:26 Flush - Normal Saline IVF 10 ml PRN PRN Administration Saline Flush Venlafaxine HCl 150 mg 01/05/19 09:00 01/15/19 09:47 Effexor Xr PO 150 mg DAILY TIN Administration - Exam Eye: PERRL, anicteric sclera Heart: RRR, no murmur, no gallops, no rubs, normal peripheral pulses Respiratory: CTAB, no rales, no ronchi, normal chest expansion, wheezes Gastrointestinal: soft, non-tender, non-distended, normal bowel sounds, no palpable masses, no hepatomegaly, no splenomegaly Extremities: no cyanosis, 1+ LE edema Hosp A/P (1) Lumbar disc disease with radiculopathy Code(s): M51.16 - INTERVERTEBRAL DISC DISORDERS W RADICULOPATHY, LUMBAR REGION Status: Acute (2) Left knee pain Code(s): M25.562 - PAIN IN LEFT KNEE Status: Acute (3) Left hip pain Code(s): M25.552 - PAIN IN LEFT HIP Status: Acute (4) DM type 2 (diabetes mellitus, type 2) Status: Chronic Qualifiers: Diabetes mellitus lobsterman insulin use: without skilled nursing use Diabetes mellitus complication status: with unspecified complications (5) HTN (hypertension) Code(s): I10 - ESSENTIAL (PRIMARY) HYPERTENSION Status: Chronic Qualifiers: Hypertension type: essential hypertension Qualified Code(s): I10 - Essential (primary) hypertension (6) Obesity (BMI 30-39.9) Code(s): E66.9 - OBESITY, UNSPECIFIED Status: Chronic (7) Chronic respiratory failure with hypoxia Code(s): J96.11 - CHRONIC RESPIRATORY FAILURE WITH HYPOXIA Status: Acute (8) Pulmonary fibrosis Code(s): J84.10 - PULMONARY FIBROSIS, UNSPECIFIED Status: Acute - Plan * ? Possible HAP-on Zosyn- will change her antibiotics to oral * Pulmonary Fibrosis- stable- she is dependent on oxygen- add Mucinex and will also add Robitussin for chronic cough * Lumbar Disc disease- with radicular pain- continue symptom management * Chronic Respiratory failure- stable * Pulmonary Fibrosis- stable * Severe deconditioning- awaiting transfer to [facility]-
[2019-01-15] MEDS ORDERED: Prevnar 13-Val Conj/PF 0.5 ML SYRINGE IM ONE (15:45)
[2019-01-15] MEDS: Lidocaine 5% Patch TD SCH (15:59)
[2019-01-15] MEDS: Prevnar 13-Val Conj/PF 0.5 ML SYRINGE IM ONE (16:14)
== END 2019-01-15 16:30 | DRG 871 ==
LOC: ERS 12:24 → ERHOLD 15:03 → IMCU/EMU 18:07 → ONC 01-04 22:39
PROVIDERS: ADMIT Internal Medicine; ATTEND Internal Medicine
DX: A41.9 Sepsis, unspecified organism (principal); J18.9 Pneumonia, unspecified organism; J96.11 Chronic respiratory failure with hypoxia; G93.49 Other encephalopathy; G95.0 Syringomyelia and syringobulbia; M84.48XA Pathological fracture, other site, initial encounter for fracture; E03.9 Hypothyroidism, unspecified; I10 Essential (primary) hypertension; F32.9 Major depressive disorder, single episode, unspecified; M76.892 Other specified enthesopathies of left lower limb, excluding foot; G47.33 Obstructive sleep apnea (adult) (pediatric); M54.16 Radiculopathy, lumbar region; E66.9 Obesity, unspecified; K13.0 Diseases of lips; E11.649 Type 2 diabetes mellitus with hypoglycemia without coma; Z96.651 Presence of right artificial knee joint; Z90.49 Acquired absence of other specified parts of digestive tract; Z90.710 Acquired absence of both cervix and uterus; Z88.1 Allergy status to other antibiotic agents; Z88.8 Allergy status to other drugs, medicaments and biological substances; Z86.718 Personal history of other venous thrombosis and embolism; Z79.01 Long term (current) use of anticoagulants; Z99.81 Dependence on supplemental oxygen; Z79.4 Long term (current) use of insulin; J84.112 Idiopathic pulmonary fibrosis; D64.9 Anemia, unspecified
CPT/HCPCS: 36415; 36416; 70450; 71045; 71260; 72148; 72195; 80048; 80053; 80202; 81001; 82565; 82607; 82728; 82746; 83540; 83550; 84436; 84439; 84443; 84466; 85007; 85014; 85018; 85025; 85027; 85048; 85049; 86140; 87070; 87081; 87252; 87430; 89220; 90471; 90662; 90670; 93005; 93010; 93306; 94640; 94760; 96361; 96374; G0008; G0009; J0692; J1756; J1815; J2270; J2543; J3370; J3490; J7050; J7512; J7620; Q0162; Q0163; Q9966

== ENCOUNTER 2019-02-11 22:58 | Inpatient (IN) | payer MEDICARE ==
[2019-02-12 02:51] VITALS: BMI 34.7
[2019-02-12] MEDS ORDERED: HYDROcodone/Acetaminophen 5/325 mg Tablet PO PRN (04:38)
[2019-02-12] MEDS: Cyclobenzaprine 10 MG TAB PO PRN ×2 (05:10→21:37)
[2019-02-12] MEDS: Gabapentin 300 MG CAP PO SCH ×4 (06:19→21:03)
[2019-02-12] MEDS ORDERED: Morphine 4 MG/ML VIAL ONE (07:02)
[2019-02-12] MEDS ORDERED: Morphine 4 MG/ML VIAL SLOW IVP SCH (07:15)
[2019-02-12] MEDS ORDERED: Ondansetron PF 4 MG/2 ML Vial IVP SCH (07:15)
[2019-02-12 08:38] LABS: #Basophils 0.1 thou/uL (0.0-0.2); #Eosinphils 0.5 thou/uL (0.0-0.7); #Lymphocytes 4.4 thou/uL (1.20-3.40); #Monocytes 1.1 thou/uL (0.11-0.59); #Neutrophils 9.5 thou/uL (1.40-6.50); %Basophils 0.5 % (0.0-1.0); %Eosinophils 3.2 % (0.0-10.0); %Monocytes 7.2 % (0.0-10.0); %Neutrophils 61.1 % (42.0-75.0); Hemoglobin 10.9 g/dL (12.0-16.0); Mean Corpuscular HGB CONC 32.1 g/dL (32.0-36.0); Mean Corpuscular Hemoglobin 28.7 pg (27.0-31.0); Mean Corpuscular Volume 89.5 fL (78.0-98.0); Mean Platelet Volume 6.6 fL (7.4-10.4); Platelet Count 349 thou/uL (130-400); RBC Distribution Width 14.9 % (11.5-14.5); Red Blood Cell (RBC) Count 3.79 mill/uL (4.20-5.40); White Blood Cell (WBC) Count 15.6 thou/uL (4.8-10.8)
[2019-02-12 08:57] LABS: ALT (SGPT) 18 U/L (8-55); AST (SGOT) 22 U/L (5-34); Albumin 3.4 g/dL (3.4-4.8); Alkaline Phosphatase 37 U/L (40-110); Anion Gap 14 mmol/L (10-20); BUN (Urea Nitrogen) 8 mg/dL (9.8-20.1); Bilirubin, Total 0.3 mg/dL (0.2-1.2); Calc. Creatinine Clearance 91 mL/min (70-130); Calcium 8.7 mg/dL (7.8-10.44); Carbon Dioxide 21 mmol/L (23-31); Chloride 103 mmol/L (98-107); Estimated GFR-MDRD 74; Globulin 2.9 g/dL (2.4-3.5); Glucose 241 mg/dL (83-110); Potassium 4.3 mmol/L (3.5-5.1); Protein, Total 6.3 g/dL (6.0-8.3); Sodium 134 mmol/L (136-145)
[2019-02-12] MEDS ORDERED: Bisacodyl 10 MG SUPP PR PRN (09:27)
[2019-02-12] MEDS ORDERED: Dextrose 50% Abboject 50 ML SYRINGE SLOW IVP PRN (09:27)
[2019-02-12] MEDS ORDERED: Dextrose 5% in Water 1,000 ML IV PRN (09:27)
[2019-02-12] MEDS ORDERED: Insulin Glargine 15 UNITS in Pre-Filled Syringe 1 EACH SC SCH (09:45)
--- NOTE | 2019-02-12 10:48 | HP ---
PRIMARY CARE PHYSICIAN: Dr. Arvind De La Paz and Dr. Kris Danielson. CHIEF COMPLAINT: Worsening left leg pain and ill feeling. HISTORY OF PRESENT ILLNESS: A 73-year-old obese female with multiple comorbidities, admitted on transfer from [facility] for further evaluation and treatment of possible sepsis. The patient was recently admitted in this hospital in December due to worsening leg pain and had extensive evaluation for possible infection of the left knee and was subsequently discharged home. She presented to the [facility] due to worsening leg pain and ill feeling and was found to be tachycardic with leukocytosis concerning for sepsis, hence, she received meropenem and vancomycin before transfer over here. The patient also reported worsening cough with yellow sputum production, but she denied worsening shortness of breath. She continued to require 3 to 3.5 oxygen at home. She denied fever, but admitted to nausea but no vomiting. She denied dysuria, chest pain, worsening leg swelling, hematemesis, hematochezia, hematuria, melena. The patient reported that the leg pain mostly in the left hip and left knee. She however denied any redness. The patient admitted that she has not been very compliant with her medications including the metoprolol. She still feel ill but has remained afebrile since admission. The patient received morphine and currently is having some drowsiness as well as memory lapses. PAST MEDICAL HISTORY: 1. Hypertension. 2. Diabetes mellitus. 3. Deep vein thrombosis. 4. Hypothyroidism. 5. Depression. 6. Chronic lung disease/pulmonary fibrosis. 7. Chronic respiratory failure, on home oxygen. 8. Obesity. 9. Degenerative joint disease, status post bilateral knee replacement complicated with left knee septic arthritis. 10. Chronic debilitation with immobility, requiring electric chair to move around. 11. Left lumbar radiculopathy. 12. Anxiety disorder. PAST SURGICAL HISTORY: 1. Cholecystectomy. 2. Hysterectomy. 3. Thyroidectomy. 4. Bilateral knee replacement. FAMILY HISTORY: Significant for CHF in mother and diabetes mellitus. SOCIAL HISTORY: The patient lives at home with daughter. She is a nonsmoker and nondrinker. She is . She has 3 children, and daughterJade is the medical power of state attorney and the patient wants to be full code. ALLERGIES: 1. CLARITHROMYCIN. 2. KETOROLAC. CURRENT HOME MEDICATIONS: 1. Acetaminophen 650 mg q.4 p.r.n. 2. Cyclobenzaprine 10 mg t.i.d. p.r.n. 3. Glimepiride 4 mg p.o. daily. 4. Hydrocodone/acetaminophen 5/325 mg 1 tablet b.i.d. p.r.n. 5. Levothyroxine 125 mcg p.o. daily. 6. Lidocaine patch p.r.n. daily. 7. Losartan 100 mg p.o. daily. 8. Metoprolol succinate 100 mg p.o. daily at bedtime. 9. Multivitamin (Centrum Silver) 1 tablet p.o. daily. 10. Xarelto 20 mg p.o. daily at bedtime. 11. Crestor 20 mg p.o. daily at bedtime. 12. DuoNeb 3 mL q.i.d. as well as q.4 p.r.n. 13. Dulcolax suppository one p.r.n. 14. Gabapentin 300 mg in the morning and afternoon and 600 mg at night. 15. Humalog 4 units t.i.d. with meals. 16. Lantus 15 units daily in the morning. 17. Metformin 500 mg p.o. b.i.d. 18. MiraLAX 17 g p.o. daily. 19. Venlafaxine 150 mg p.o. daily. REVIEW OF SYSTEMS: A 12-point review of system was negative other than pertinent positives and negatives included in the history of present illness. PHYSICAL EXAMINATION: VITAL SIGNS: Temperature 98.2, pulse 118, respiratory rate 14, SpO2 of 99% on 3 L nasal cannula, blood pressure is 118/58. GENERAL: Obese female, in no obvious distress. Afebrile. Anicteric. Acyanotic. HEENT: Normocephalic, atraumatic. Oral mucosa is moist. NECK: Supple and nontender with no masses or JVD. CARDIOVASCULAR: Regular rhythm and rate, but tachycardic. No obvious murmur appreciated. RESPIRATORY: Fair air entry bilaterally with scattered crackles and some transmitted breath sounds. No obvious rhonchi or use of accessory muscles appreciated. GI: Obese, soft, nontender, nondistended with normal bowel sounds. EXTREMITIES: Grossly normal looking atraumatic with no obvious edema or erythema. Scar on the anterior aspect of both knees noted. There is no erythema. Questionable tenderness of left knee with no swelling, fullness or effusion noted. Also tenderness is noted around the mid aspect of the left thigh. Again, there is no erythema or redness or swelling. MERCHANDISE COMPLAINT ADJUSTER: Conscious and alert and oriented x3. Some memory lapses noted. PSYCHIATRIC: Flat affect. DIAGNOSTIC DATA: CBC showed WBC count of 15.6, hemoglobin of 10.9, MCV of 89.5, platelet of 349. CMP showed sodium 134, potassium 4.3, chloride 103, CO2 of 21, BUN 8, creatinine 0.76. Creatinine is 0.76, glucose is 241, calcium is 8.7, bilirubin is 0.3, AST is 22, ALT is 18, alkaline phosphatase is 37. Total protein is 6.3, albumin is 3.4, globulin is 2.9. Serial troponin has been unremarkable. BNP is 18.9. TSH is 4.5. Initial lactic acid on presentation on February 11 was 3.9 and repeat 3 hours later is 2.9. Chest x-ray performed on February 11 showed chronic changes in the lung lilly as well as mild pulmonary vascular congestion. No pneumothorax however was noted. Left hip x-ray showed intertrochanteric fracture, which was incompletely evaluated. Further evaluation with CT scan may be beneficial. ASSESSMENT: 1. Presumed sepsis given tachycardia and leukocytosis as well as elevated lactic acid. Source of infection is unclear, but seems most likely to be from pulmonary infection given that the patient is having worsening cough, is having sputum production. 2. Presumed bronchopneumonia. 3. Chronic interstitial lung disease/pulmonary fibrosis. 4. Chronic respiratory failure, on oxygen. 5. Left intertrochanteric fracture. 6. Morbid obesity. 7. Diabetes mellitus. 8. Tachycardia: Either due to sepsis or rebound tachycardia from noncompliance to metoprolol. 9. Left knee and hip pain. Most likely related to intertrochanteric fracture. 10. Hypothyroidism, on replacement therapy. 11. Hypertension: Blood pressure went down after morphine. 12. History of deep vein thrombosis, status post IVC filter placement and currently on anticoagulation with Xarelto. PLAN: 1. We will continue broad-spectrum antibiotic therapy for possible healthcare associated pneumonia with vancomycin, meropenem, and levofloxacin. 2. We will get sputum culture. 3. We will also get repeat lactic acid as well as procalcitonin, ESR and CRP. 4. We will continue insulin therapy. 5. We will also continue anticoagulation with Xarelto. 6. Analgesic as needed will be provided. We will however avoid morphine given mental status changes and hypotension. 7. We will continue Neurontin and Flexeril. 8. We will get orthopedic consult to re-evaluate the patient. 9. We will restart metoprolol at a lower dose given soft blood pressure to control tachycardia. 10. Code status, full code. 11. Daughter, Jade is the surrogate decision maker. 12. Further treatment to follow depending on hospital course. Job ID: [id number]
[2019-02-12] MEDS ORDERED: Morphine 4 MG/ML VIAL SLOW IVP PRN (11:00)
[2019-02-12] MEDS: Vancomycin 1.5 GRAM/300 ML BAG 1.5 GM in Premix Bag 1 BAG IVPB SCH (11:29)
[2019-02-12] MEDS ORDERED: Meropenem 1 GM in Sodium Chloride 0.9% 100 ML IVPB SCH (12:00)
[2019-02-12] MEDS: HumaLOG 300 UNITS/3 ML VIAL SC PRN ×3 (12:33→21:09)
[2019-02-12] MEDS: MEROPENEM 1 GM/50 ML 1 GM in Premix Bag 1 BAG IVPB SCH ×2 (12:36→21:00)
[2019-02-12] MEDS ORDERED: Ondansetron PF 4 MG/2 ML Vial IVP PRN (13:00)
--- NOTE | 2019-02-12 15:56 | RAD ---
Exam: One view pelvis HISTORY: Pain FINDINGS: Sacral and joints are patent symmetric Unremarkable sacroiliac Intact bony pelvis Intact bilateral obturator rings Contour of both femoral heads are maintained. Symmetric hip joint spaces Extensive vascular calcifications IMPRESSION: Unremarkable AP pelvic radiograph
--- NOTE | 2019-02-12 16:10 | RAD ---
Exam:2 views left hip HISTORY: Pain. Suboptimal prior radiograph, raising the possibility of a fracture. COMPARISON: 02/11/2019 FINDINGS: 2 views of the left hip are submitted for interpretation. Crosstable lateral view is somewh at limited. On the AP projection, questionable lucency projects along the superior trochanteric extends into the intertrochanteric region. The possibility of a nondisplaced fracture cannot be exclu ded. Additionally, evaluation of the femoral neck is limited. IMPRESSION: Questionable fracture and limited evaluation. If the patient is unable to bear weight, co nsider CT.
--- NOTE | 2019-02-12 18:11 | CON ---
DATE OF CONSULTATION: This is Jesus España PA-C dictating a report for Seth Osman MD. HISTORY OF PRESENT ILLNESS: We were asked by our [facility] [place] medical service to see the patient. The patient was in her normal state of health. She was seen in our hospital on January 03 and , last month, worked up for ongoing left hip pain. At that time, the x-rays were negative. The patient was sent to [facility]. She got help for a little bit and then her left hip pain got remarkably worse. She was transferred over here. X-rays showed negative findings on the right. The left looked more like a fat fold. But there was only one image to view. The patient currently is resting in room, 3308. No acute distress. Family is at the bedside, her daughter in law. She is able to wiggle her toes. She unfortunately is not a very good historian. She states her hip pain does not hurt and then states it has not bothered her for a while, so she is a little bit confused, but the [id number] states that she complains about the left hip pain quite a bit. There was no trauma, no new changes. The daughter in-law helps take care of her and they virtually have to lift that left leg onto the bed or when she is moving. Again, no numbness, tingling in the lower extremities that has worsened and again the patient is quite comfortable right now. PAST MEDICAL HISTORY: Hypertension; diabetes; DVT; hypothyroid; depression; pulmonary fibrosis, on home O2; obesity; degenerative joint disease with a knee replacement and some septic arthritis in the past; history of lumbar radiculopathy; and anxiety disorder. PAST SURGICAL HISTORY: Cholecystectomy, hysterectomy, thyroidectomy, and bilateral knee replacements with history of infection. FAMILY HISTORY: Not a problem for this visit. SOCIAL HISTORY: Lives at home with family. Nonsmoker, not drinker. , has 3 children. Per daughter and herself not very active at home. This has been ongoing with some deconditioning due to these knee surgeries repairs and bodily aches and pains. ALLERGIES: CLARITHROMYCIN AND KETOROLAC. CURRENT MEDICATIONS: 1. Tylenol. 2. Flexeril. 3. Glimepiride. 4. Merna. 5. Levothyroxine. 6. Lidocaine patch. 7. Losartan. 8. Metoprolol. 9. Multivitamin. 10. Xarelto. 11. Crestor. 12. DuoNeb. 13. Dulcolax. 14. Gabapentin. 15. Humalog. 16. Lantus. 17. Metformin. 18. MiraLAX. 19. Venlafaxine. REVIEW OF SYSTEMS: Currently, the patient is pretty stoic, especially during Dr. Osman' physical exam. Her only complaint is a little bit of aching to the pelvis and low back into the hip. Otherwise, she is moving her arms and legs well. Right greater than the left in the lower extremities. Rest of review of systems negative. PHYSICAL EXAMINATION: GENERAL: Well-nourished, well-developed, obese female, awake, alert, answering simple questions okay. Family is helping her with the history. Speech is otherwise clear. HEENT: Normal exam. Face symmetric. Tongue midline. NECK: Supple. Trachea midline. RESPIRATORY: 16, no acute distress. EXTREMITIES: Upper extremities, equal size, shape and symmetry. Normal bulk and tone. I checked the reflexes, they were not hyperreflexive and she did not have a Grace sign in the upper extremities. Lower extremities, Dr. Osman rocked the pelvis and then he moved her left hip up 90 degrees with internal and external rotation, rocked the hip back and forth on the bed and did active passive range of motions and the patient tolerated this actually quite well with no complaints of pain. Right lower extremity, the same, no range of motion, problems with the hip, increasing pain. Feet, sensations are intact, but she does have some sustained clonus to bilateral lower extremities and a footdrop on the left side. Sensations are intact as well as her DP, PT pulses. ASSESSMENT: Ongoing left hip pain. New x-rays show a possible fracture. We plan on getting a CT for better clarification and imaging. This will be explained to the family. If the CT is negative for fracture, our recommendations would be a followup with Neurosurgery to get to the bottom of her foot drop, her radiculopathy complaints and clonus. The patient will be put on bed rest. She can eat and we will make further decisions depending on what the CT of her left hip shows. Family has been explained the plan. We will check on her in the morning. Hopefully, CT will get done this evening. Job ID: [id number]
--- NOTE | 2019-02-12 19:23 | CT ---
Exam: Left lower extremity CT scan without IV contrast: HISTORY: Left hip pain COMPARISON: Left hip x-ray: FINDINGS: There is heterogeneous bony demineralization of the left lower extremity including the left hip. Post operative total knee arthroplasty changes are noted of the left knee. There is bony demineralization of the lower leg and ankle and visualized foot. There is no evidence for an acute le ft hip fracture. No other acute fracture. IMPRESSION: No evidence for acute left hip fracture. Very heterogeneous bony demineralization of the entire visua lized left lower extremity.
[2019-02-12] MEDS ORDERED: Rivaroxaban 10 MG TAB PO SCH (21:00)
[2019-02-12] MEDS: Rosuvastatin 20 MG TAB PO SCH (21:04)
[2019-02-12] MEDS: HYDROcodone/Acetaminophen 5/325 mg Tablet PO PRN (21:37)
[2019-02-13] MEDS: MEROPENEM 1 GM/50 ML 1 GM in Premix Bag 1 BAG IVPB SCH ×3 (05:00→20:26)
[2019-02-13] MEDS: Levothyroxine Sodium 125 MCG TAB PO SCH (05:20)
[2019-02-13] MEDS: HumaLOG 300 UNITS/3 ML VIAL SC PRN ×4 (05:26→20:32)
[2019-02-13 05:44] LABS: #Basophils 0.1 thou/uL (0.0-0.2); #Eosinphils 0.6 thou/uL (0.0-0.7); #Lymphocytes 4.4 thou/uL (1.20-3.40); #Monocytes 0.9 thou/uL (0.11-0.59); #Neutrophils 8.2 thou/uL (1.40-6.50); %Basophils 0.5 % (0.0-1.0); %Eosinophils 4.1 % (0.0-10.0); %Monocytes 6.4 % (0.0-10.0); Hemoglobin 11.8 g/dL (12.0-16.0); Mean Corpuscular HGB CONC 32.1 g/dL (32.0-36.0); Mean Corpuscular Hemoglobin 28.8 pg (27.0-31.0); Mean Corpuscular Volume 89.7 fL (78.0-98.0); Mean Platelet Volume 6.9 fL (7.4-10.4); Platelet Count 336 thou/uL (130-400); RBC Distribution Width 15.1 % (11.5-14.5); White Blood Cell (WBC) Count 14.1 thou/uL (4.8-10.8)
[2019-02-13 06:13] LABS: Anion Gap 16 mmol/L (10-20); BUN (Urea Nitrogen) 6 mg/dL (9.8-20.1); Calc. Creatinine Clearance 88 mL/min (70-130); Calcium 8.9 mg/dL (7.8-10.44); Carbon Dioxide 21 mmol/L (23-31); Chloride 103 mmol/L (98-107); Estimated GFR-MDRD 71; Glucose 265 mg/dL (83-110); Potassium 4.3 mmol/L (3.5-5.1); Sodium 136 mmol/L (136-145)
[2019-02-13] MEDS: Venlafaxine HCl XR 150 MG CAP PO SCH (08:23)
[2019-02-13] MEDS: Gabapentin 300 MG CAP PO SCH ×3 (08:24→20:28)
[2019-02-13] MEDS: HYDROcodone/Acetaminophen 5/325 mg Tablet PO PRN ×2 (08:52→15:12)
[2019-02-13] MEDS: Cyclobenzaprine 10 MG TAB PO PRN (08:54)
[2019-02-13] MEDS ORDERED: Insulin Glargine 15 UNITS in Pre-Filled Syringe 1 EACH SC SCH (09:00)
--- NOTE | 2019-02-13 10:06 | ULT ---
ULTRASOUND DOPPLER DUPLEX VENOUS BILATERAL LOWER EXTREMITIES: DATE: 02/13/2019 HISTORY: 73-year-old female with bilateral lower extremity edema TECHNIQUE: Grayscale, color-flow, and spectral analysis, of major veins of bilateral lower extremities. FINDINGS: There is demonstration of blood flow with normal compressibility, of the bilateral common femoral, pr ofunda femoral, greater saphenous, femoral, popliteal, and posterior tibial, veins. IMPRESSION: Negative. No deep venous thrombosis of bilateral lower extremities.
[2019-02-13] MEDS: Vancomycin 1.5 GRAM/300 ML BAG 1.5 GM in Premix Bag 1 BAG IVPB SCH (11:09)
[2019-02-13] MEDS: Nystatin 500,000 UNITS/5 ML UDCUP SSW SCH ×3 (11:11→20:27)
[2019-02-13] MEDS ORDERED: Lorazepam 1 MG TAB PO PRN (15:11)
--- NOTE | 2019-02-13 17:01 | PDOC.HOSPP ---
- Subjective Encounter Date: 02/13/19 Encounter Time: 09:45 Subjective: Patient seen and examined for Sepsis. Left thigh pain +. No new focal deficits. No new complaints. No overnight events - Objective Vital Signs & Weight: Vital Signs (12 hours) Temp Pulse Resp BP Pulse Ox 02/13/19 16:24 98.7 F 118 H 18 112/54 L 94 L 02/13/19 14:45 114 H 20 94 L 02/13/19 12:00 98.7 F 121 H 12 124/76 96 02/13/19 10:57 119 H 20 90 L 02/13/19 07:43 97.7 F 119 H 18 108/86 94 L 02/13/19 06:42 92 L 02/13/19 06:40 109 H 20 92 L Weight Admit Weight 195 lb 14.4 oz Weight 195 lb 14.4 oz I&O: 02/12/19 02/13/19 02/14/19 06:59 06:59 06:59 Intake Total 120 1960 Output Total 400 Balance 120 1560 Result Diagrams: 02/13/19 05:14 02/13/19 05:14 Additional Labs: Accuchecks 02/13/19 02/13/19 02/12/19 11:40 05:17 21:10 POC Glucose 290 H 249 H 176 H Radiology Reviewed by me: Yes (CXR - Neg, CT LE - no fractures) Hospitalist ROS - Review of Systems Respiratory: denies: cough, dry, shortness of breath, hemoptysis, SOB with excertion, pleuritic pain, sputum, wheezing, other Cardiovascular: denies: chest pain, palpitations, orthopnea, paroxysmal noc. dyspnea, edema, light headedness, other - Medication Medications: Active Medications Generic Name Dose Route Start Last Admin Trade Name Freq PRN Reason Stop Dose Admin Hydrocodone Bitart/Acetaminophen 1 tab 02/12/19 09:32 02/13/19 15:12 [place] 5/325 PO 1 tab Q6H PRN Administration Moderate Pain (4-6) Albuterol/Ipratropium 3 ml 02/12/19 04:37 02/13/19 06:40 Duoneb NEB 3 ml Q4H PRN Administration SOB &/or Wheezing Albuterol/Ipratropium 3 ml 02/12/19 13:00 02/13/19 14:45 Duoneb NEB 3 ml QID TIN Administration Cyclobenzaprine HCl 10 mg 02/12/19 04:37 02/13/19 08:54 Flexeril PO 10 mg TID PRN Administration Muscle Spasm/PAIN Gabapentin 600 mg 02/12/19 21:00 02/12/19 21:03 Neurontin PO 600 mg HS TIN Administration Gabapentin 300 mg 02/12/19 15:00 02/13/19 14:59 Neurontin PO 300 mg 0900,1500 TIN Administration Insulin Glargine 15 units/ 0.15 mls @ 0 mls/hr 02/13/19 09:00 02/13/19 08:24 Miscellaneous Medication SC 0.15 mls QAM TIN Administration Vancomycin 1.5 GRAM/300 ML BAG 300 mls @ 300 mls/hr 02/12/19 11:00 02/13/19 11:09 1.5 gm/ Device IVPB 300 mls 1100 TIN Administration Meropenem 1 gm/ Device 50 mls @ 200 mls/hr 02/12/19 12:00 02/13/19 15:07 IVPB 50 mls 0400,1200,2000 TIN Administration Insulin Human Lispro 0 units 02/12/19 09:27 02/13/19 13:42 Humalog SC 6 unit .MODERATE SLIDING SC PRN Administration Moderate Correctional Scale Levothyroxine Sodium 125 mcg 02/13/19 06:00 02/13/19 05:20 Synthroid PO 125 mcg 0600 TIN Administration Metoprolol Succinate 25 mg 02/13/19 09:00 02/13/19 08:24 Toprol Xl PO 25 mg DAILY TIN Administration Nystatin 500,000 units 02/13/19 13:00 02/13/19 11:11 Mycostatin SSW 500,000 units QID TIN Administration Rosuvastatin Calcium 20 mg 02/12/19 21:00 02/12/19 21:04 Crestor PO 20 mg HS TIN Administration Venlafaxine HCl 150 mg 02/13/19 09:00 02/13/19 08:23 Effexor Xr PO 150 mg DAILY TIN Administration - Exam General Appearance: NAD Neck: supple, no JVD Heart: RRR, no gallops, no rubs, normal peripheral pulses Respiratory: CTAB, no rales, no ronchi, normal chest expansion Gastrointestinal: soft, non-tender, non-distended, normal bowel sounds Extremities: no edema Neurological: no new deficit Neurological - other findings: chronic left foot drop Psychiatric: normal affect, A&O x 3 Hosp A/P - Plan Sepsis ?etio Left thigh pain Chronic resp failure on home O2 Physical deconditioning Obesity BMI 34.7 DM2 Pulmonary fibrosis h/o DVT on Xarelto (Also has IVC filter) PLAN: DC PO Levaquin Consult ID Cont Vancomycin/Meropenem Monitor Vancomycin level MRI Lumbar/Thoracic spine with contrast per Neurosurgery Increase Lantus dose AM labs Cont other meds
[2019-02-13] MEDS: Rivaroxaban 10 MG TAB PO SCH (17:12)
[2019-02-13] MEDS: Rosuvastatin 20 MG TAB PO SCH (20:27)
[2019-02-13] MEDS: Saccharomyces boulardii 250 MG CAP PO SCH (20:27)
[2019-02-13] MEDS: Insulin Glargine 10 UNITS in Pre-Filled Syringe 1 EACH SC SCH (20:32)
--- NOTE | 2019-02-14 02:28 | CON ---
DATE OF CONSULTATION: HISTORY OF PRESENT ILLNESS: The patient is a 73-year-old female with a past medical history of diabetes; hypertension; prior DVT; pulmonary fibrosis, on home O2; chronic left leg pain with history of prior left knee replacement with septic arthritis and also a left foot injury, who presented to the emergency department on 02/12/2019 for increased left leg pain as well as some cough and shortness of breath for several days. Initially on arrival, patient was found to have elevated WBC and lactic acid with concerning for underlying sepsis. She is currently being treated by the Medical Service for suspected underlying pneumonia. Regards to her left leg pain, initial plain films were concerning for possible underlying left intertrochanteric fracture. However, patient has been evaluated by Orthopedics and had a noncontrast CT of the left lower extremity, which was negative for acute fracture. We were asked to consult for consideration of left lumbar radiculopathy. The patient reports that she has had chronic left leg pain for the past 2 years. She reports that this initially began in the left knee after development of septic arthritis requiring washout. She later suffered an injury with a left foot fracture. She reports she has been immobilized with regard to pain and weakness in the left leg for the last 2 years and usually uses a motorized scooter to get around and transfers usually in the right leg. She reports in the last 2 weeks, she has severe and worsening left proximal leg pain into the proximal leg and the left groin. This is worsened by any movement or activities and was not being controlled by her usual medications, so she came to the ER for further evaluation and management for this as well. She has an MRI from approximately one month ago, which is notable for multilevel degenerative disk disease and some small left-sided disk protrusions at L5-S1 and L3-L4. There is also incompletely visualized possible syrinx of the distal aspect of the thoracic. This is incompletely visualized and no contrast was used. PAST MEDICAL HISTORY: Hypertension, diabetes, DVT, hypothyroid, depression, pulmonary fibrosis, obesity, history of left knee replacement with septic arthritis, anxiety. PAST SURGICAL HISTORY: Cholecystectomy, hysterectomy, thyroidectomy, bilateral knee replacements, history of infection. SOCIAL HISTORY: The patient lives at home. She does not smoke, drink, or use any drugs. ALLERGIES: SHE IS ALLERGIC TO CLARITHROMYCIN AND TORADOL. REVIEW OF SYSTEMS: Per HPI. PHYSICAL EXAMINATION: VITAL SIGNS: Pulse is 112, respiratory rate is 20, she is 94% on 2 L nasal cannula. BP is 112/54. GENERAL: Awake, alert, in no acute distress. HEENT: Head, normocephalic and atraumatic. Eyes, PERRLA. Extraocular movements intact. ENT, oral mucosa is pink, intact, and moist. NECK: Nontender to palpation. Free active range of motion. No meningismus or nuchal rigidity. CARDIAC: Mildly tachycardic. RESPIRATORY: Symmetric chest expansion. No evidence of dyspnea on my exam. MUSCULOSKELETAL: No obvious deformities. The patient is significantly weak in the left lower extremity, particularly in the left foot she has noted weakness with dorsiflexion and over the left proximal leg. She is hyperreflexive throughout the lower extremities. Sensation is intact to light touch. NEUROLOGIC: She is A and O x4. Weakness in the left lower extremity is noted in the musculoskeletal exam. ASSESSMENT AND PLAN: This is a 73-year-old female with chronic left leg pain and weakness with significant increase in the left proximal leg pain, increased from baseline. 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 Considering the patient's increased pain and decreased functionality, we will plan to repeat her lumbar and thoracic MRIs with and without contrast. I have discussed this plan with Dr. Rudolph who is in agreement. We will review once these are complete. Job ID: [id number] MTDD
[2019-02-14] MEDS: MEROPENEM 1 GM/50 ML 1 GM in Premix Bag 1 BAG IVPB SCH ×3 (03:36→20:26)
[2019-02-14 05:11] LABS: #Basophils 0.1 thou/uL (0.0-0.2); #Eosinphils 0.6 thou/uL (0.0-0.7); #Lymphocytes 4.9 thou/uL (1.20-3.40); #Monocytes 1.3 thou/uL (0.11-0.59); #Neutrophils 12.1 thou/uL (1.40-6.50); %Basophils 0.5 % (0.0-1.0); %Eosinophils 3.1 % (0.0-10.0); %Lymphocytes 25.7 % (21.0-51.0); %Monocytes 6.7 % (0.0-10.0); Hemoglobin 10.8 g/dL (12.0-16.0); Mean Corpuscular HGB CONC 33.1 g/dL (32.0-36.0); Mean Corpuscular Hemoglobin 29.4 pg (27.0-31.0); Mean Corpuscular Volume 88.9 fL (78.0-98.0); Mean Platelet Volume 7.1 fL (7.4-10.4); Platelet Count 309 thou/uL (130-400); RBC Distribution Width 15.1 % (11.5-14.5); Red Blood Cell (RBC) Count 3.69 mill/uL (4.20-5.40); White Blood Cell (WBC) Count 18.9 thou/uL (4.8-10.8)
[2019-02-14] MEDS: Levothyroxine Sodium 125 MCG TAB PO SCH (05:21)
[2019-02-14] MEDS: HumaLOG 300 UNITS/3 ML VIAL SC PRN ×4 (05:22→20:33)
[2019-02-14 05:30] LABS: ALT (SGPT) 20 U/L (8-55); AST (SGOT) 24 U/L (5-34); Albumin 3.2 g/dL (3.4-4.8); Alkaline Phosphatase 54 U/L (40-110); Anion Gap 14 mmol/L (10-20); BUN (Urea Nitrogen) 6 mg/dL (9.8-20.1); Bilirubin, Total 0.4 mg/dL (0.2-1.2); Calc. Creatinine Clearance 91 mL/min (70-130); Calcium 8.8 mg/dL (7.8-10.44); Carbon Dioxide 23 mmol/L (23-31); Chloride 98 mmol/L (98-107); Estimated GFR-MDRD 74; Globulin 3.1 g/dL (2.4-3.5); Glucose 304 mg/dL (83-110); Magnesium 1.7 mg/dL (1.6-2.6); Potassium 4.6 mmol/L (3.5-5.1); Protein, Total 6.3 g/dL (6.0-8.3); Sodium 130 mmol/L (136-145)
[2019-02-14] MEDS: HYDROcodone/Acetaminophen 5/325 mg Tablet PO PRN (07:57)
[2019-02-14] MEDS: Gabapentin 300 MG CAP PO SCH ×3 (07:59→20:27)
[2019-02-14] MEDS: Venlafaxine HCl XR 150 MG CAP PO SCH (07:59)
[2019-02-14] MEDS: Nystatin 500,000 UNITS/5 ML UDCUP SSW SCH ×4 (08:17→20:30)
[2019-02-14] MEDS: Acetaminophen 325 MG TAB PO PRN ×2 (08:21→22:57)
[2019-02-14] MEDS ORDERED: Lorazepam 2 MG/ML VIAL SLOW IVP SCH (09:00)
--- NOTE | 2019-02-14 09:57 | PRG ---
DATE OF SERVICE: 02/14/2019 SUBJECTIVE: The patient is currently reporting that she is not feeling so well. Reports discomfort all over her body. Denies anything specific. Denies any joint pain. She does state that she has pain into her left thigh, which has been present for the last several days. No family currently at bedside. OBJECTIVE: VITAL SIGNS: Temperature 99.6, pulse of 125, respiratory rate of 28 , O2 saturation of 92% on room air, and blood pressure 131/64. GENERAL: The patient is awake, however, appears uncomfortable. Her temperature was retaken while I was in the room, and this appeared to be 100.8. She feels warm to touch. No diaphoresis. SKIN: Dry. EXTREMITIES: The bilateral lower extremities were evaluated. There is no sign of erythema. No obvious joint effusions. On evaluation of the left lower extremity, she does have clonus present. Able to slightly passively move her ankle. Also, passive range of motion in the knee as well as the hip. She was repositioned due to comfort, but does not localize any pain during this evaluation. She does have footdrop to this lower extremity. Evaluation of the right lower extremity shows passive range of motion intact in the ankle, the knee, and the hip as well. She is seen utilizing both upper extremities without any difficulty. She does have active range of motion in bilateral upper extremities. LABORATORY DATA: For today show an elevation in her white blood cell count to 18.9, previously 14.1 yesterday; hemoglobin 10.8; hematocrit 32.8; platelet count of 309. ASSESSMENT AND PLAN: We have been following this patient for what was initially thought to be a left hip fracture. This has been ruled out. The patient did have a positive Campoverde sign yesterday on exam by another member of our orthopedic team , as well as clonus to bilateral lower extremities. Neurosurgery evaluated the patient and ordered thoracic and lumbar studies including with and without contrast MRIs. An informal consultation was made with neurosurgery today, and this case discussion with Dr. Osman, a MRI cervical spine and an EKG were ordered for further evaluation and workup. The MRI will be added to the patient's preexisting order. She was given Tylenol today for her fever prior to going down for her MRI. At this time, there is no concern for septic joint. Job ID: [id number] [facility]
--- NOTE | 2019-02-14 10:31 | MRI ---
Cervical spine MRI without contrast: 02/14/2019 COMPARISON: None HISTORY: Pain and bilateral lower extremities, quadriplegia, evaluate for cord compression TECHNIQUE: Multiplanar multisequence MR imaging of the cervical spine obtained without contrast FINDINGS: This study is significantly limited secondary to motion artifact, particularly the sagittal T2 and all provided axial sequences. The sagittal STIR imaging demonstrates no focal area of osseous marrow edema. There is moderate degenerative change at the atlantoaxial interspace. C2-3: Bilateral facet and uncovertebral osteophyte formation. No significant central canal or neural foraminal stenosis. C3-4: Evaluation for central canal and/or neural foraminal stenosis is quite limited secondary to mot ion. Probable bilateral facet hypertrophy with mild bilateral neural foraminal stenosis. Probable mild central canal stenosis. C4-5: Disc space narrowing and disc desiccation noted with small central disc protrusion abutting the ventral aspect of the cervical cord with at least mild central canal stenosis. Bilateral facet and uncovertebral osteophyte formation, left greater than right. Mild/moderate bilateral neural foraminal stenosis is suspected, left greater than right. C5-6: There is disc space narrowing and disc desiccation with mild disc bulge and at least mild centr al canal stenosis. Bilateral facet hypertrophy with at least mild bilateral neural foraminal stenosis. C6-7: Mild bilateral facet hypertrophy. No significant neural foraminal stenosis. There is disc space narrowing with disc desiccation and mild disc bulge causing at least mild central canal stenosis. C7-T1: No significant central canal or neural foraminal stenosis. Evaluation of the cervical cord for abnormal signal intensity is markedly limited secondary to motion . IMPRESSION: Motion limited examination demonstrating areas of degenerative change as described above.
--- NOTE | 2019-02-14 10:46 | MRI ---
MRI LUMBAR SPINE WITH AND WITHOUT CONTRAST: 02/14/2019 HISTORY: Back pain with bilateral lower extremity radiculopathy, left-sided thigh pain. TECHNIQUE: Multiplanar multisequence MR imaging of the lumbar spine provided with and without contrast. FINDINGS: The axial imaging, particularly the pre-contrast T1 and the T2 weighted imaging, is quite limited on the basis of persistent motion artifact. The sagittal STIR imaging demonstrates no focal area of osseous marrow edema. No anterolisthesis or retrolisthesis noted. On the basis of five lumbar type vertebral bodies, the conus medullaris terminates in the L1 region. T12-L1: Intervertebral disc height and signal intensity grossly unremarkable. No significant central canal or neural foraminal stenosis. L1-2: There is disc space narrowing with disc desiccation and mild disc bulge causing mild central ca nal stenosis. No significant neural foraminal stenosis. L2-3: Disc desiccation. No central canal or neural foraminal stenosis. L3-4: Mild bilateral facet hypertrophy. There is disc space narrowing and disc desiccation with mild disc bulge causing no significant central canal or neural foraminal stenosis. Mild bilateral facet hypertrophy. L4-5: There is disc space narrowing and disc desiccation with disc bulge and bilateral facet hypertro phy, left greater than right. Mild left lateral recess stenosis. No significant neural foraminal stenosis on either side. L5-S1: There is disc space narrowing and disc desiccation with disc bulge and probable small central disc protrusion causing mild central canal stenosis/left lateral recess stenosis. Bilateral facet hypertrophy with mild left neural foraminal stenosis. No significant right neural foraminal stenosis. The post contrast imaging demonstrates no significant enhancement involving the contents of the theca l sac, the imaged osseous structures or the intervertebral discs. Imaged retroperitoneal structures appear grossly unremarkable. IMPRESSION: Relatively mild degenerative changes as described above. Motion limits detailed assessment on the pre -contrast axial imaging. Transcribed Date/Time: 02/14/2019 10:51 AM
--- NOTE | 2019-02-14 11:22 | MRI ---
Lumbar spine MRI with and without contrast: 02/14/2019 HISTORY: Pain and weakness TECHNIQUE: Multiplanar multisequence MR imaging of the thoracic spine provided without contrast FINDINGS: The sagittal STIR imaging demonstrates no focal area of osseous marrow edema. There is no significant anterolisthesis or retrolisthesis within the thoracic spine. Incompletely imaged pulmonary parenchyma demonstrates patchy areas of increased signal intensity sugg esting significant airspace opacity, for which chest radiograph is advised. The axial T2 and precontrast T1 weighted imaging is significantly limited on the basis of motion alejandro fact. No significant central canal or neural foraminal stenosis is evident within the thoracic spine. Limited assessment of the thoracic cord secondary to motion demonstrates no discrete focal are a of abnormal signal intensity on the T2-weighted imaging. Mild disc bulge present at T3-4, T5-6, T6-7, and T7-8. Postcontrast imaging demonstrates no abnormal enhancement involving the contents of the thecal sac, t he imaged osseous structures, or the intervertebral discs. IMPRESSION: Motion limited examination demonstrating no thoracic spine acute findings. Significant bi lateral pulmonary parenchymal opacities are noted, poorly assessed via MRI, for which chest radiograph is advised.
[2019-02-14] MEDS: Insulin Glargine 20 UNITS in Pre-Filled Syringe 1 EACH SC SCH (11:36)
[2019-02-14] MEDS: Vancomycin 1.5 GRAM/300 ML BAG 1.5 GM in Premix Bag 1 BAG IVPB SCH (11:37)
[2019-02-14 12:09] LABS: Vancomycin, Trough 11.3 ug/mL
[2019-02-14] MEDS: Rivaroxaban 10 MG TAB PO SCH (18:01)
[2019-02-14] MEDS ORDERED: Aluminum & Magnesium Hydroxide 60 ML, diphenhydrAMINE 150 MG, Lidocaine 2% Viscous Solu... SSW PRN (19:11)
--- NOTE | 2019-02-14 19:17 | PDOC.HOSPP ---
- Subjective Encounter Date: 02/14/19 Encounter Time: 11:15 Subjective: 73 y/o female with multiple comorbidities admitted with worsening left leg pain associated with SOB. Found to have leucocytosis and and tachycardia and was started on broad spectrum antibiotics. Reportedly had fever of 100.8 earlier today. Still tachycardic. Complaints of mouth soreness and pain. - Objective Vital Signs & Weight: Vital Signs (12 hours) Temp Pulse Resp BP Pulse Ox 02/14/19 19:05 112 H 20 92 L 02/14/19 15:36 98.3 F 110 H 16 110/64 94 L 02/14/19 14:33 112 H 22 H 96 02/14/19 11:09 98 F 116 H 34 H 99/55 L 92 L 02/14/19 08:00 92 L 02/14/19 07:16 99.6 F 125 H 28 H 131/64 92 L Weight Admit Weight 195 lb 14.4 oz Weight 195 lb 14.4 oz I&O: 02/13/19 02/14/19 02/15/19 06:59 06:59 06:59 Intake Total 1960 2360 Output Total 400 2450 Balance 1560 -90 Result Diagrams: 02/14/19 04:46 02/14/19 04:46 Additional Labs: Accuchecks 02/14/19 02/14/19 02/14/19 15:38 11:45 05:17 POC Glucose 253 H 280 H 312 H 02/13/19 20:34 POC Glucose 307 H Hospitalist ROS - Medication Medications: Active Medications Generic Name Dose Route Start Last Admin Trade Name Freq PRN Reason Stop Dose Admin Acetaminophen 650 mg 02/12/19 09:27 02/14/19 08:21 Tylenol PO 650 mg Q4H PRN Administration Headache/Fever/Mild Pain (1-3) Hydrocodone Bitart/Acetaminophen 1 tab 02/12/19 09:32 02/14/19 07:57 [place] 5/325 PO 1 tab Q6H PRN Administration Moderate Pain (4-6) Albuterol/Ipratropium 3 ml 02/12/19 04:37 02/13/19 06:40 Duoneb NEB 3 ml Q4H PRN Administration SOB &/or Wheezing Albuterol/Ipratropium 3 ml 02/14/19 07:00 02/14/19 19:05 Duoneb NEB 3 ml QID-RT TIN Administration Cyclobenzaprine HCl 10 mg 02/12/19 04:37 02/13/19 08:54 Flexeril PO 10 mg TID PRN Administration Muscle Spasm/PAIN Gabapentin 600 mg 02/12/19 21:00 02/13/19 20:28 Neurontin PO 600 mg HS TIN Administration Gabapentin 300 mg 02/12/19 15:00 02/14/19 15:15 Neurontin PO Not Given 0900,1500 TIN Meropenem 1 gm/ Device 50 mls @ 200 mls/hr 02/12/19 12:00 02/14/19 11:43 IVPB 50 mls 0400,1200,2000 TIN Administration Insulin Glargine 10 units/ 0.1 mls @ 0 mls/hr 02/13/19 21:00 02/13/19 20:32 Miscellaneous Medication SC 0.1 mls HS TIN Administration Insulin Glargine 20 units/ 0.2 mls @ 0 mls/hr 02/14/19 09:00 02/14/19 11:36 Miscellaneous Medication SC 0.2 mls QAM TIN Administration Levofloxacin 750 mg/ Device 150 mls @ 100 mls/hr 02/14/19 09:00 02/14/19 15: 15 IVPB 150 mls Q24HR TIN Administration Insulin Human Lispro 0 units 02/12/19 09:27 02/14/19 18:44 Humalog SC 6 unit .MODERATE SLIDING SC PRN Administration Moderate Correctional Scale Levothyroxine Sodium 125 mcg 02/13/19 06:00 02/14/19 05:21 Synthroid PO 125 mcg 0600 TIN Administration Lorazepam 1 mg 02/13/19 15:11 02/14/19 05:21 Ativan PO 1 mg DAILYPRN PRN Administration Claustrophobia Lorazepam 1 mg 02/14/19 09:00 02/14/19 09:09 Ativan SLOW IVP 1 mg WILLCALL TIN Administration Metoprolol Succinate 25 mg 02/13/19 09:00 02/14/19 07:57 Toprol Xl PO 25 mg DAILY TIN Administration Nystatin 500,000 units 02/13/19 13:00 02/14/19 18:01 Mycostatin SSW Not Given QID TIN Rivaroxaban 20 mg 02/13/19 17:00 02/14/19 18:01 Xarelto PO 20 mg 1700 TIN Administration Rosuvastatin Calcium 20 mg 02/12/19 21:00 02/13/19 20:27 Crestor PO 20 mg HS TIN Administration Saccharomyces Boulardii 250 mg 02/13/19 21:00 02/13/19 20:27 Florastor PO 250 mg HS TIN Administration Venlafaxine HCl 150 mg 02/13/19 09:00 02/14/19 07:59 Effexor Xr PO 150 mg DAILY TIN Administration - Exam General Appearance: awake alert General - other findings: obese Eye: anicteric sclera ENT: normocephalic atraumatic, dry oral mucosa Neck: supple Heart: RRR Heart - other findings: tachycardic Respiratory: no wheezes, no ronchi Respiratory - other findings: fair air entry with bibasal crackles Gastrointestinal: soft, non-tender, non-distended, normal bowel sounds Extremities: no cyanosis, no edema Extremities - other findings: Mild left lateral thigh tenderness Neurological: cranial nerve grossly intact, no focal deficits Musculoskeletal: generalized weakness Psychiatric: A&O x 3 Hosp A/P (1) Acute on chronic respiratory failure Code(s): J96.20 - ACUTE AND CHR RESP FAILURE, UNSP W HYPOXIA OR HYPERCAPNIA Status: Acute (2) Left hip pain Code(s): M25.552 - PAIN IN LEFT HIP Status: Acute (3) Left knee pain Code(s): M25.562 - PAIN IN LEFT KNEE Status: Acute (4) Lumbar disc disease with radiculopathy Code(s): M51.16 - INTERVERTEBRAL DISC DISORDERS W RADICULOPATHY, LUMBAR REGION Status: Acute (5) Pulmonary fibrosis Code(s): J84.10 - PULMONARY FIBROSIS, UNSPECIFIED Status: Acute (6) Sepsis Code(s): A41.9 - SEPSIS, UNSPECIFIED ORGANISM Status: Acute Qualifiers: Sepsis type: sepsis due to unspecified organism Qualified Code(s): A41.9 - Sepsis, unspecified organism (7) DM type 2 (diabetes mellitus, type 2) Status: Chronic Qualifiers: Diabetes mellitus terminologist insulin use: without terminologist use Diabetes mellitus complication status: with unspecified complications (8) HTN (hypertension) Code(s): I10 - ESSENTIAL (PRIMARY) HYPERTENSION Status: Chronic Qualifiers: Hypertension type: essential hypertension Qualified Code(s): I10 - Essential (primary) hypertension (9) Obesity (BMI 30-39.9) Code(s): E66.9 - OBESITY, UNSPECIFIED Status: Chronic (10) Spondylosis Code(s): M47.9 - SPONDYLOSIS, UNSPECIFIED Status: Acute - Plan Add levaquin to meropenem and vanc. Will get CT chest to rule in or rule out pneumonia. Fungal pneumonia is a concern given nicki on sputum culture. Continue analgesic and supportive. Neurosurgery following
[2019-02-14] MEDS: Rosuvastatin 20 MG TAB PO SCH (20:27)
[2019-02-14] MEDS: Saccharomyces boulardii 250 MG CAP PO SCH (20:27)
[2019-02-14] MEDS: Insulin Glargine 10 UNITS in Pre-Filled Syringe 1 EACH SC SCH (20:33)
[2019-02-14] MEDS: Vancomycin HCl 1 GM in Premix Bag 1 BAG IVPB SCH (22:44)
[2019-02-14 23:35] LABS: Bacteria/HPF None Seen HPF (None Seen); Bilirubin Negative (Negative); Blood, Urine 1+ (Negative); Clarity Clear (Clear); Glucose, Urine (Dipstick) 500 mg/dL (Negative); Leukocyte 75 Leu/uL (Negative); Nitrite Negative (Negative); Protein, Urine (Dipstick) 30 mg/dL (Neg-Trace); Squamous Epithelial 0-3 HPF (0-3); Urine Culture Reflex Yes Yes; Urobilinogen Normal mg/dL (Less than 2)
[2019-02-14 23:52] LABS: #Basophils 0.1 thou/uL (0.0-0.2); #Eosinphils 0.4 thou/uL (0.0-0.7); #Monocytes 1.2 thou/uL (0.11-0.59); #Neutrophils 12.8 thou/uL (1.40-6.50); %Basophils 0.4 % (0.0-1.0); %Eosinophils 2.3 % (0.0-10.0); %Lymphocytes 25.5 % (21.0-51.0); %Monocytes 6.3 % (0.0-10.0); %Neutrophils 65.5 % (42.0-75.0); Hemoglobin 10.8 g/dL (12.0-16.0); Mean Corpuscular HGB CONC 32.6 g/dL (32.0-36.0); Mean Corpuscular Hemoglobin 28.9 pg (27.0-31.0); Mean Corpuscular Volume 88.7 fL (78.0-98.0); Mean Platelet Volume 7.2 fL (7.4-10.4); Platelet Count 304 thou/uL (130-400); Red Blood Cell (RBC) Count 3.74 mill/uL (4.20-5.40); White Blood Cell (WBC) Count 19.6 thou/uL (4.8-10.8)
--- NOTE | 2019-02-14 23:52 | RAD ---
Exam: Chest one view: HISTORY: Shortness of breath, tachypnea COMPARISON: 02/11/2019. FINDINGS: There is progressive confluent alveolar parenchymal change in the right upper lobe and right midlung zone concerning for new pneumonia. Persistent confluent parenchymal changes noted in the left lower lobe. Probable small left pleural effusion. Evidence for bilateral vascular congestion. IMPRESSION: Newly developed alveolar parenchymal change in the right upper and right midlung zone concerning for pneumonia. Persistent confluent parenchymal changes in the left base. Probable small left pleural effusion. Bilateral vascular congestion.
[2019-02-15 00:09] LABS: Lactic Acid 2.1 mmol/L (0.5-2.2)
[2019-02-15 00:16] LABS: ALT (SGPT) 19 U/L (8-55); AST (SGOT) 27 U/L (5-34); Albumin 3.1 g/dL (3.4-4.8); Alkaline Phosphatase 47 U/L (40-110); Anion Gap 10 mmol/L (10-20); BUN (Urea Nitrogen) 8 mg/dL (9.8-20.1); Bilirubin, Total 0.6 mg/dL (0.2-1.2); Calc. Creatinine Clearance 92 mL/min (70-130); Calcium 8.6 mg/dL (7.8-10.44); Carbon Dioxide 25 mmol/L (23-31); Chloride 96 mmol/L (98-107); Estimated GFR-MDRD 76; Globulin 3.1 g/dL (2.4-3.5); Glucose 263 mg/dL (83-110); Magnesium 1.6 mg/dL (1.6-2.6); Potassium 4.2 mmol/L (3.5-5.1); Protein, Total 6.2 g/dL (6.0-8.3); Sodium 127 mmol/L (136-145)
[2019-02-15] MEDS: MEROPENEM 1 GM/50 ML 1 GM in Premix Bag 1 BAG IVPB SCH ×3 (03:23→20:18)
[2019-02-15 04:47] LABS: #Eosinphils 0.4 thou/uL (0.0-0.7); #Lymphocytes 3.9 thou/uL (1.20-3.40); #Monocytes 1.3 thou/uL (0.11-0.59); #Neutrophils 11.8 thou/uL (1.40-6.50); %Basophils 0.1 % (0.0-1.0); %Eosinophils 2.4 % (0.0-10.0); %Lymphocytes 22.2 % (21.0-51.0); %Monocytes 7.7 % (0.0-10.0); %Neutrophils 67.6 % (42.0-75.0); Hemoglobin 10.5 g/dL (12.0-16.0); Mean Corpuscular HGB CONC 33.4 g/dL (32.0-36.0); Mean Corpuscular Hemoglobin 29.6 pg (27.0-31.0); Mean Corpuscular Volume 88.6 fL (78.0-98.0); Mean Platelet Volume 6.9 fL (7.4-10.4); Platelet Count 279 thou/uL (130-400); Red Blood Cell (RBC) Count 3.53 mill/uL (4.20-5.40); White Blood Cell (WBC) Count 17.5 thou/uL (4.8-10.8)
[2019-02-15 05:04] LABS: Anion Gap 9 mmol/L (10-20); BUN (Urea Nitrogen) 9 mg/dL (9.8-20.1); CRP (Inflammatory) 23.82 mg/dL (= or < 0.5); Calc. Creatinine Clearance 95 mL/min (70-130); Calcium 8.5 mg/dL (7.8-10.44); Carbon Dioxide 25 mmol/L (23-31); Chloride 96 mmol/L (98-107); Estimated GFR-MDRD 78; Glucose 256 mg/dL (83-110); Potassium 4.2 mmol/L (3.5-5.1); Sodium 126 mmol/L (136-145)
[2019-02-15] MEDS: Levothyroxine Sodium 125 MCG TAB PO SCH (05:44)
[2019-02-15] MEDS ORDERED: Sodium Chloride 3% 100 ML IVPB SCH (07:15)
[2019-02-15] MEDS: Venlafaxine HCl XR 150 MG CAP PO SCH (09:32)
[2019-02-15] MEDS: Insulin Glargine 20 UNITS in Pre-Filled Syringe 1 EACH SC SCH (09:32)
[2019-02-15] MEDS: Gabapentin 300 MG CAP PO SCH ×3 (09:32→20:18)
[2019-02-15] MEDS: Nystatin 500,000 UNITS/5 ML UDCUP SSW SCH ×4 (09:32→20:18)
--- NOTE | 2019-02-15 09:56 | CT ---
HIGH RISK CT CHEST: HISTORY: Pulmonary fibrosis, possible pneumonia, COMPARISON: None. TECHNIQUE: The patient was placed in a supine position to perform the high risk CT. The patient could not lie in the prone position. FINDINGS: Mediastinum: There do appear to be enlarged mediastinal lymph nodes, incompletely evaluated. Right pa ratracheal lymph node measures 1.4 x 0.9 cm. Possible right mediastinal lymph node measuring 2.1 x 1.6 cm. Upper abdomen: Grossly unremarkable. Lower neck and axilla: Grossly unremarkable. Bilateral breast augmentation changes are noted. Trachea and central bronchi: Patent. Right lung: Diffuse ground glass opacification involving the right upper lobe, right lower lobe and t o lesser extent middle lobe. There is consolidation with air bronchograms in the right lower lobe. No evidence of honeycombing or fibrotic change. Mild bronchiectasis in the middle lobe. Left lung: Ground glass opacities involving the posterior left upper lobe and left lower lobe. Areas of consolidation in the left lower lobe are noted. Minimal, early honeycombing in the left lower lobe cannot be excluded. IMPRESSION: 1. Bilateral right greater left ground glass opacities. 2. Bilateral lower lobe consolidation which may represent atelectasis, pneumonia or aspiration. Possi ble early honeycombing in the left lower lobe. 3. Enlarged mediastinal lymph nodes, incompletely evaluated. Transcribed Date/Time: 02/15/2019 10:07 AM
[2019-02-15] MEDS: Vancomycin HCl 1 GM in Premix Bag 1 BAG IVPB SCH ×2 (11:07→23:43)
[2019-02-15] MEDS: HumaLOG 300 UNITS/3 ML VIAL SC PRN ×3 (11:08→21:05)
--- NOTE | 2019-02-15 12:29 | PDOC.HOSPP ---
- Subjective Encounter Date: 02/15/19 Encounter Time: 09:28 Subjective: 73 y/o female with multiple comorbidities admitted with worsening left leg pain associated with SOB. Found to have leucocytosis and and tachycardia and was started on broad spectrum antibiotics. Reportedly had fever of 100.8 on 2018. Developed confusion and worsening tachycardia and was transfered to Telemetry last night. No new problem. - Objective Vital Signs & Weight: Vital Signs (12 hours) Temp Pulse Pulse Pulse Resp BP BP 02/15/19 11:18 98.2 F 110 H 32 H 02/15/19 10:33 111 H 22 H 02/15/19 10:03 110 H 113 H 147/67 H 120/60 02/15/19 09:32 02/15/19 07:20 97.8 F 102 H 24 H 02/15/19 06:52 95 20 02/15/19 03:54 97.4 F L 111 H 23 H 02/15/19 00:51 123 H 24 H BP Pulse Ox 02/15/19 11:18 151/67 H 93 L 02/15/19 10:33 92 L 02/15/19 10:03 02/15/19 09:32 96 02/15/19 07:20 126/59 L 96 02/15/19 06:52 94 L 02/15/19 03:54 114/53 L 92 L 02/15/19 00:51 95 Weight Admit Weight 195 lb 14.4 oz Weight 195 lb 14.4 oz I&O: 02/14/19 02/15/19 02/16/19 06:59 06:59 06:59 Intake Total 2360 1690 Output Total 2450 450 Balance -90 1240 Result Diagrams: 02/15/19 04:28 02/15/19 04:28 Additional Labs: Accuchecks 02/15/19 02/15/19 02/14/19 10:48 05:36 20:35 POC Glucose 275 H 258 H 235 H 02/14/19 15:38 POC Glucose 253 H Hospitalist ROS - Medication Medications: Active Medications Generic Name Dose Route Start Last Admin Trade Name Freq PRN Reason Stop Dose Admin Acetaminophen 650 mg 02/12/19 09:27 02/14/19 22:57 Tylenol PO 650 mg Q4H PRN Administration Headache/Fever/Mild Pain (1-3) Hydrocodone Bitart/Acetaminophen 1 tab 02/12/19 09:32 02/14/19 07:57 [place] 5/325 PO 1 tab Q6H PRN Administration Moderate Pain (4-6) Albuterol/Ipratropium 3 ml 02/14/19 07:00 02/15/19 10:33 Duoneb NEB 3 ml QID-RT TIN Administration Cyclobenzaprine HCl 10 mg 02/12/19 04:37 02/13/19 08:54 Flexeril PO 10 mg TID PRN Administration Muscle Spasm/PAIN Gabapentin 600 mg 02/12/19 21:00 02/14/19 20:27 Neurontin PO 600 mg HS TIN Administration Gabapentin 300 mg 02/12/19 15:00 02/15/19 09:32 Neurontin PO 300 mg 0900,1500 TIN Administration Meropenem 1 gm/ Device 50 mls @ 200 mls/hr 02/12/19 12:00 02/15/19 11:07 IVPB 50 mls 0400,1200,2000 TIN Administration Insulin Glargine 10 units/ 0.1 mls @ 0 mls/hr 02/13/19 21:00 02/14/19 20:33 Miscellaneous Medication SC 0.1 mls HS TIN Administration Insulin Glargine 20 units/ 0.2 mls @ 0 mls/hr 02/14/19 09:00 02/15/19 09:32 Miscellaneous Medication SC 0.2 mls QAM TIN Administration Levofloxacin 750 mg/ Device 150 mls @ 100 mls/hr 02/14/19 09:00 02/15/19 09: 37 IVPB 150 mls Q24HR TIN Administration Vancomycin HCl 1 gm/ Device 200 mls @ 200 mls/hr 02/14/19 23:00 02/15/19 11: 07 IVPB 200 mls 1100,2300 TIN Administration Insulin Human Lispro 0 units 02/12/19 09:27 02/15/19 11:08 Humalog SC 6 unit .MODERATE SLIDING SC PRN Administration Moderate Correctional Scale Levothyroxine Sodium 125 mcg 02/13/19 06:00 02/15/19 05:44 Synthroid PO 125 mcg 0600 TIN Administration Lorazepam 1 mg 02/13/19 15:11 02/14/19 05:21 Ativan PO 1 mg DAILYPRN PRN Administration Claustrophobia Lorazepam 1 mg 02/14/19 09:00 02/14/19 09:09 Ativan SLOW IVP 1 mg WILLCALL TIN Administration Nystatin 500,000 units 02/13/19 13:00 02/15/19 09:32 Mycostatin SSW 500,000 units QID TIN Administration Rivaroxaban 20 mg 02/13/19 17:00 02/14/19 18:01 Xarelto PO 20 mg 1700 TIN Administration Rosuvastatin Calcium 20 mg 02/12/19 21:00 02/14/19 20:27 Crestor PO 20 mg HS TIN Administration Saccharomyces Boulardii 250 mg 02/13/19 21:00 02/14/19 20:27 Florastor PO 250 mg HS TIN Administration Sodium Chloride 10 ml 02/15/19 09:00 02/15/19 09:37 Flush - Normal Saline IVF 10 ml Q12HR TIN Administration Venlafaxine HCl 150 mg 02/13/19 09:00 02/15/19 09:32 Effexor Xr PO 150 mg DAILY TIN Administration - Exam General - other findings: drowsy but conversational Eye: anicteric sclera ENT: normocephalic atraumatic Neck: supple, no JVD Neck - other findings: shorth thick neck with excess soft tissue Heart: RRR Heart - other findings: tachycardic Respiratory: no ronchi, normal chest expansion Respiratory - other findings: fair air entry bilaterally with scattered crackles and transmitted sound Gastrointestinal: soft, non-distended, normal bowel sounds Gastrointestinal - other findings: obese Extremities: no edema Neurological: cranial nerve grossly intact, no focal deficits Neurological - other findings: drwosy and with memory lapses Psychiatric: A&O x 3 Hosp A/P (1) Hyponatremia Code(s): E87.1 - HYPO-OSMOLALITY AND HYPONATREMIA Status: Acute (2) Acute metabolic encephalopathy Code(s): G93.41 - METABOLIC ENCEPHALOPATHY Status: Acute (3) Acute on chronic respiratory failure Code(s): J96.20 - ACUTE AND CHR RESP FAILURE, UNSP W HYPOXIA OR HYPERCAPNIA Status: Acute (4) Left hip pain Code(s): M25.552 - PAIN IN LEFT HIP Status: Acute (5) Left knee pain Code(s): M25.562 - PAIN IN LEFT KNEE Status: Acute (6) Lumbar disc disease with radiculopathy Code(s): M51.16 - INTERVERTEBRAL DISC DISORDERS W RADICULOPATHY, LUMBAR REGION Status: Acute (7) Pulmonary fibrosis Code(s): J84.10 - PULMONARY FIBROSIS, UNSPECIFIED Status: Acute (8) Sepsis Code(s): A41.9 - SEPSIS, UNSPECIFIED ORGANISM Status: Acute Qualifiers: Sepsis type: sepsis due to unspecified organism Qualified Code(s): A41.9 - Sepsis, unspecified organism (9) DM type 2 (diabetes mellitus, type 2) Status: Chronic Qualifiers: Diabetes mellitus extermination supervisor insulin use: without extermination supervisor use Diabetes mellitus complication status: with unspecified complications (10) HTN (hypertension) Code(s): I10 - ESSENTIAL (PRIMARY) HYPERTENSION Status: Chronic Qualifiers: Hypertension type: essential hypertension Qualified Code(s): I10 - Essential (primary) hypertension (11) Obesity (BMI 30-39.9) Code(s): E66.9 - OBESITY, UNSPECIFIED Status: Chronic (12) Spondylosis Code(s): M47.9 - SPONDYLOSIS, UNSPECIFIED Status: Acute (13) Bronchopneumonia Code(s): J18.0 - BRONCHOPNEUMONIA, UNSPECIFIED ORGANISM Status: Acute (14) SIADH (syndrome of inappropriate ADH production) Status: Acute - Plan Presumed symptomatic hyponatremia: Due to SIADH. Has acute confusion. Will give 100 cc hypertonic saline. Will also start fluid restrictioon to 1500. Repeat BMP at 1400 SIADH: Due to lung disease and or medication. Urine osmolality was 517 in the face of plasma osmolality of 281 Bronchopneumonia with sepsis: Continue broad spectrum antibiotics. Fungal pneumonia is a concern. Will get CT Chest and Pulmonary consult. Patient may benfit from bronchoscopy. CRP and ESR are trending up. Continue analgesic and supportive. Neurosurgery following
[2019-02-15] MEDS: methylPREDNISolone Sod Succ 40 MG VIAL IVP SCH ×3 (12:43→23:43)
--- NOTE | 2019-02-15 13:38 | CON ---
DATE OF CONSULTATION: 02/15/2019 HISTORY OF PRESENT ILLNESS: A 73-year-old morbidly obese female she is 95 kg, presented to the ER on February 11, today is February 15. This consultation is regarding a pulmonary status. She initially presented with history of pain, possible hip fracture, tachycardia, and shortness of breath. About a year ago, she saw some doctors at [place], [place], was told she had fibrosis of the lung. No biopsy was done because of her advanced age. It appears there is a [id number] who is at the bedside who gives the history. Her daughter has a power of compliance attorney, she is not here. She can barely walk even 20 feet without getting extremely short of breath. This has been going for about a year. Today, she is denying any fevers or chills. She has cough. She is short of breath. PAST MEDICAL HISTORY: Hypertension, diabetes, pulmonary fibrosis, history of previous DVT, apparently has a filter in place, history of broken hip, chronic pain, and arthritis. PAST SURGICAL HISTORY: Otherwise, included gallbladder, hysterectomy, thyroid, knee replacement, complicated by infection. Possible hip fracture. Evidence of lumbar disk disease. SOCIAL HISTORY: Tobacco, none. Alcohol, none. HOME MEDICATIONS: 1. Insulin. 2. Gabapentin 300. 3. Hydrocodone. 4. Flexeril. 5. Nebulizer. 6. Glimepiride 4 mg. 7. Tylenol. 8. Glucophage 500 twice a day. 9. Synthroid 125. 10. Crestor 20. 11. Xarelto 20. 12. Effexor 150. 13. Losartan 100. 14. Toprol-XL 100. REVIEW OF SYSTEMS: Otherwise, unremarkable. PHYSICAL EXAMINATION: VITAL SIGNS: Saturations are 92% on 4 L, temperature 97, pulse 102, blood pressure 147/67, respiratory rate 20. CHEST: Extensive crackles inspiratory bilaterally. CARDIAC: Normal S1 and S2. No gallops. ABDOMEN: No masses, soft. LABORATORY DATA: White count 17,000, H and H 10 and 30, and platelet count is normal. Sodium 126, glucose 275. X-ray shows extensive bilateral fibrotic changes, slightly more pronounced in the right lung. CT of chest confirms the above findings, there is an extensive bibasilar ground-glass opacity. IMPRESSION: 1. Pulmonary fibrosis. 2. Morbid obesity. 3. Deep venous thrombosis, pulmonary embolism, filter. 4. Possible pneumonia. 5. Hip fracture, advanced age. PLAN: I have started steroids. She is on broad-spectrum antibiotics, we will continue. Prognosis is grave. She needs to be made DNR, family is to make a decision. Consultation note, 70 minutes, 50% direct patient care. Job ID: [id number]
[2019-02-15 14:44] LABS: Anion Gap 11 mmol/L (10-20); Calcium 8.8 mg/dL (7.8-10.44); Carbon Dioxide 25 mmol/L (23-31); Chloride 96 mmol/L (98-107); Glucose 275 mg/dL (83-110); Potassium 4.4 mmol/L (3.5-5.1); Sodium 128 mmol/L (136-145)
[2019-02-15 14:49] LABS: BUN (Urea Nitrogen) 9 mg/dL (9.8-20.1); Calc. Creatinine Clearance 96 mL/min (70-130); Estimated GFR-MDRD 79
[2019-02-15] MEDS ORDERED: Lorazepam 0.5 MG TAB PO PRN (15:28)
[2019-02-15] MEDS: Rivaroxaban 10 MG TAB PO SCH (16:00)
[2019-02-15] MEDS: Saccharomyces boulardii 250 MG CAP PO SCH (20:18)
[2019-02-15] MEDS: Rosuvastatin 20 MG TAB PO SCH (20:18)
[2019-02-15] MEDS: Insulin Glargine 10 UNITS in Pre-Filled Syringe 1 EACH SC SCH (20:18)
--- NOTE | 2019-02-15 23:07 | PRG ---
DATE OF SERVICE: SUBJECTIVE: The patient is seen and examined. I agree with Reina Mullins's evaluation. The patient is a 73-year-old woman with extensive medical comorbidities, currently hospitalized for pneumonia. She had complained of severe left leg pain. Orthopedic evaluation did not reveal any intrinsic hip pathology. MRI lumbar spine is a poor quality, but reveals only degenerative findings without nerve compression as best I can tell. There certainly are no serious findings on the scan. Additional MR imaging of the spine was largely unremarkable. IMPRESSION AND PLAN: No surgical indications at this time. I am not completely certain of the cause of left leg pain. I would recommend ongoing conservative management for this. Job ID: [id number]
[2019-02-16] MEDS: MEROPENEM 1 GM/50 ML 1 GM in Premix Bag 1 BAG IVPB SCH ×3 (04:59→20:05)
[2019-02-16] MEDS: Levothyroxine Sodium 125 MCG TAB PO SCH (05:02)
[2019-02-16] MEDS: methylPREDNISolone Sod Succ 40 MG VIAL IVP SCH ×2 (05:02→20:50)
[2019-02-16] MEDS: HumaLOG 300 UNITS/3 ML VIAL SC PRN (05:45)
[2019-02-16] MEDS: Venlafaxine HCl XR 150 MG CAP PO SCH (08:56)
[2019-02-16] MEDS: Gabapentin 300 MG CAP PO SCH ×3 (08:56→20:42)
[2019-02-16] MEDS: Nystatin 500,000 UNITS/5 ML UDCUP SSW SCH ×4 (08:56→20:41)
[2019-02-16] MEDS: Insulin Glargine 20 UNITS in Pre-Filled Syringe 1 EACH SC SCH (09:04)
[2019-02-16 09:16] LABS: #Lymphocytes 3.8 thou/uL (1.20-3.40); #Monocytes 0.6 thou/uL (0.11-0.59); #Neutrophils 11.4 thou/uL (1.40-6.50); %Basophils 0.3 % (0.0-1.0); %Eosinophils 0.1 % (0.0-10.0); %Lymphocytes 23.8 % (21.0-51.0); %Neutrophils 71.9 % (42.0-75.0); Hemoglobin 11.4 g/dL (12.0-16.0); Mean Corpuscular HGB CONC 32.4 g/dL (32.0-36.0); Mean Corpuscular Hemoglobin 28.8 pg (27.0-31.0); Mean Corpuscular Volume 89.1 fL (78.0-98.0); Mean Platelet Volume 7.6 fL (7.4-10.4); Platelet Count 366 thou/uL (130-400); RBC Distribution Width 14.9 % (11.5-14.5); Red Blood Cell (RBC) Count 3.95 mill/uL (4.20-5.40); White Blood Cell (WBC) Count 15.9 thou/uL (4.8-10.8)
[2019-02-16 09:27] LABS: Anion Gap 12 mmol/L (10-20); BUN (Urea Nitrogen) 13 mg/dL (9.8-20.1); Calc. Creatinine Clearance 97 mL/min (70-130); Calcium 9.3 mg/dL (7.8-10.44); Carbon Dioxide 24 mmol/L (23-31); Chloride 98 mmol/L (98-107); Estimated GFR-MDRD 73; Glucose 391 mg/dL (83-110); Potassium 3.8 mmol/L (3.5-5.1); Sodium 130 mmol/L (136-145)
[2019-02-16] MEDS ORDERED: Insulin Glargine 10 UNITS in Pre-Filled Syringe 1 EACH SC SCH (10:45)
[2019-02-16] MEDS: Senokot S 8.6-50 MG TAB PO PRN ×2 (11:04→20:04)
--- NOTE | 2019-02-16 11:05 | PRG ---
DATE OF SERVICE: 02/16/2019 SUBJECTIVE: This morning, she is better. She is less cough, less shortness of breath. She has known history of pulmonary fibrosis, followed by a doctor in [place]. She is taking prednisone apparently 5 mg a day. She is clearly distance without getting markedly short of breath. OBJECTIVE: VITAL SIGNS: On examination, sats are 98% on 3 L, respiratory rate 20, temperature 97, blood pressure 120/59. CHEST: Decreased breath sounds. No wheezing. Extensive crackles in the back. CARDIAC: Normal S1 and S2. No gallops. ABDOMEN: No masses. LABORATORY DATA: Blood sugar was 381. White count 15,000. IMPRESSION: 1. Pulmonary fibrosis, morbid obesity, severe deconditioning. 2. Degenerative disease involving the lumbosacral area, not a surgical candidate. PLAN: I would consider stopping all IV antibiotics, p.o. antibiotics. Eventually, p.o. prednisone. Cultures are negative. I do not suspect pneumonia. This is a probably underlying pulmonary fibrosis with a ground-glass opacity. Job ID: [id number]
[2019-02-16] MEDS: Insulin Regular 300 UNITS/3 ML VIAL SC PRN ×3 (11:10→20:38)
[2019-02-16] MEDS ORDERED: Bisacodyl 10 MG SUPP PR SCH (12:00)
[2019-02-16] MEDS: Vancomycin HCl 1 GM in Premix Bag 1 BAG IVPB SCH ×2 (12:31→22:53)
--- NOTE | 2019-02-16 16:43 | PDOC.HOSPP ---
- Subjective Encounter Date: 02/16/19 Encounter Time: 13:42 Subjective: 73 y/o female with multiple comorbidities admitted with worsening left leg pain associated with SOB. Found to have leucocytosis and and tachycardia and was started on broad spectrum antibiotics. Reportedly had fever of 100.8 on 2018. Developed confusion and worsening tachycardia which was felt to be related acute hyponatremia and was treated with hypertonic solution with improvement. feeling better. - Objective Vital Signs & Weight: Vital Signs (12 hours) Temp Pulse Resp BP Pulse Ox 02/16/19 14:38 107 H 18 98 02/16/19 12:00 97.9 F 113 H 18 111/59 L 93 L 02/16/19 10:55 112 H 18 95 02/16/19 08:20 98.5 F 106 H 20 127/59 L 97 02/16/19 07:25 98 20 98 Weight Admit Weight 195 lb 14.4 oz Weight 210 lb 4 oz I&O: 02/15/19 02/16/19 02/17/19 06:59 06:59 06:59 Intake Total 1690 700 Output Total 450 1550 Balance 1240 -850 Result Diagrams: 02/16/19 08:36 02/16/19 08:36 Additional Labs: Accuchecks 02/16/19 02/16/19 02/15/19 10:54 05:20 20:31 POC Glucose 530 H 381 H 423 H 02/15/19 16:54 POC Glucose 324 H Hospitalist ROS - Medication Medications: Active Medications Generic Name Dose Route Start Last Admin Trade Name Freq PRN Reason Stop Dose Admin Acetaminophen 650 mg 02/12/19 09:27 02/14/19 22:57 Tylenol PO 650 mg Q4H PRN Administration Headache/Fever/Mild Pain (1-3) Hydrocodone Bitart/Acetaminophen 1 tab 02/12/19 09:32 02/14/19 07:57 [place] 5/325 PO 1 tab Q6H PRN Administration Moderate Pain (4-6) Albuterol/Ipratropium 3 ml 02/15/19 14:30 02/16/19 14:38 Duoneb NEB 3 ml [id number] TIN Administration Cyclobenzaprine HCl 10 mg 02/12/19 04:37 02/13/19 08:54 Flexeril PO 10 mg TID PRN Administration Muscle Spasm/PAIN Gabapentin 600 mg 02/12/19 21:00 02/15/19 20:18 Neurontin PO 600 mg HS TIN Administration Gabapentin 300 mg 02/12/19 15:00 02/16/19 14:28 Neurontin PO 300 mg 0900,1500 TIN Administration Meropenem 1 gm/ Device 50 mls @ 200 mls/hr 02/12/19 12:00 02/16/19 14:27 IVPB 50 mls 0400,1200,2000 TIN Administration Levofloxacin 750 mg/ Device 150 mls @ 100 mls/hr 02/14/19 09:00 02/16/19 09: 05 IVPB 150 mls Q24HR TIN Administration Vancomycin HCl 1 gm/ Device 200 mls @ 200 mls/hr 02/14/19 23:00 02/16/19 12: 31 IVPB 200 mls 1100,2300 TIN Administration Insulin Human Regular 0 units 02/16/19 10:41 02/16/19 11:10 Humulin R SC 13 unit .AGGRESSIVE SLIDING PRN Administration Aggressive Correctional Scale Levothyroxine Sodium 125 mcg 02/13/19 06:00 02/16/19 05:02 Synthroid PO 125 mcg 0600 TIN Administration Lorazepam 1 mg 02/14/19 09:00 02/14/19 09:09 Ativan SLOW IVP 1 mg WILLCALL TIN Administration Lorazepam 0.5 mg 02/15/19 15:28 02/15/19 15:48 Ativan PO 0.5 mg TID PRN Administration Anxiety Metoprolol Succinate 100 mg 02/15/19 21:00 02/15/19 20:18 Toprol Xl PO 100 mg HS TIN Administration Nystatin 500,000 units 02/13/19 13:00 02/16/19 12:32 Mycostatin SSW 500,000 units QID TIN Administration Rivaroxaban 20 mg 02/13/19 17:00 02/15/19 16:00 Xarelto PO 20 mg 1700 TIN Administration Rosuvastatin Calcium 20 mg 02/12/19 21:00 02/15/19 20:18 Crestor PO 20 mg HS TIN Administration Saccharomyces Boulardii 250 mg 02/13/19 21:00 02/15/19 20:18 Florastor PO 250 mg HS TIN Administration Senna/Docusate Sodium 2 tab 02/12/19 09:27 02/16/19 11:04 Senokot S PO 2 tab BIDPRN PRN Administration Constipation Sodium Chloride 10 ml 02/15/19 09:00 02/16/19 08:57 Flush - Normal Saline IVF 10 ml Q12HR TIN Administration Venlafaxine HCl 150 mg 02/13/19 09:00 02/16/19 08:56 Effexor Xr PO 150 mg DAILY TIN Administration - Exam General Appearance: awake alert Eye: anicteric sclera ENT: normocephalic atraumatic Neck: supple, symmetric Heart: RRR Respiratory: normal chest expansion, no tachypnea Respiratory - other findings: fair air entry with bibasal crackles. Gastrointestinal: soft, non-tender, non-distended, normal bowel sounds Extremities: no cyanosis, no edema Neurological: cranial nerve grossly intact, no focal deficits Psychiatric: A&O x 3 Hosp A/P (1) Bilateral pneumonia Code(s): J18.9 - PNEUMONIA, UNSPECIFIED ORGANISM Status: Acute (2) Acute on chronic respiratory failure Code(s): J96.20 - ACUTE AND CHR RESP FAILURE, UNSP W HYPOXIA OR HYPERCAPNIA Status: Acute (3) Hyponatremia Code(s): E87.1 - HYPO-OSMOLALITY AND HYPONATREMIA Status: Acute (4) Acute metabolic encephalopathy Code(s): G93.41 - METABOLIC ENCEPHALOPATHY Status: Acute (5) Left hip pain Code(s): M25.552 - PAIN IN LEFT HIP Status: Acute (6) Left knee pain Code(s): M25.562 - PAIN IN LEFT KNEE Status: Acute (7) Lumbar disc disease with radiculopathy Code(s): M51.16 - INTERVERTEBRAL DISC DISORDERS W RADICULOPATHY, LUMBAR REGION Status: Acute (8) Pulmonary fibrosis Code(s): J84.10 - PULMONARY FIBROSIS, UNSPECIFIED Status: Acute (9) Sepsis Code(s): A41.9 - SEPSIS, UNSPECIFIED ORGANISM Status: Acute Qualifiers: Sepsis type: sepsis due to unspecified organism Qualified Code(s): A41.9 - Sepsis, unspecified organism (10) DM type 2 (diabetes mellitus, type 2) Status: Chronic Qualifiers: Diabetes mellitus correction insulin use: without correction use Diabetes mellitus complication status: with unspecified complications (11) HTN (hypertension) Code(s): I10 - ESSENTIAL (PRIMARY) HYPERTENSION Status: Chronic Qualifiers: Hypertension type: essential hypertension Qualified Code(s): I10 - Essential (primary) hypertension (12) Obesity (BMI 30-39.9) Code(s): E66.9 - OBESITY, UNSPECIFIED Status: Chronic (13) Spondylosis Code(s): M47.9 - SPONDYLOSIS, UNSPECIFIED Status: Acute (14) SIADH (syndrome of inappropriate ADH production) Status: Acute - Plan Continue antibiotics for bilateral pneumonia with sepsis: Continue broad spectrum antibiotics. Started on steroid by pulmonary associated with worsening og glycemic control. Will increase insulin therapy Continue analgesic and supportive. Following family meeting with palliative care team, Patient was made DNR in line with patient and relatives wishes. Hospice care also was discussed. Patient also relatives later elected to go home with hospice. Had a further discussion with patient and relatives, they will like to go home tomorrow if hospice care can be set up.
[2019-02-16] MEDS: Rivaroxaban 10 MG TAB PO SCH (17:36)
[2019-02-16] MEDS: Insulin Regular 300 UNITS/3 ML VIAL SC SCH (17:38)
[2019-02-16] MEDS: Saccharomyces boulardii 250 MG CAP PO SCH (20:42)
[2019-02-16] MEDS: Rosuvastatin 20 MG TAB PO SCH (20:42)
[2019-02-16] MEDS ORDERED: Insulin Glargine 20 UNITS in Pre-Filled Syringe 1 EACH SC SCH (21:00)
[2019-02-16 22:44] LABS: Vancomycin, Trough 25.8 ug/mL
[2019-02-17] MEDS: MEROPENEM 1 GM/50 ML 1 GM in Premix Bag 1 BAG IVPB SCH (04:46)
[2019-02-17 05:25] LABS: #Basophils 0.1 thou/uL (0.0-0.2); #Lymphocytes 1.7 thou/uL (1.20-3.40); #Monocytes 0.8 thou/uL (0.11-0.59); #Neutrophils 16.1 thou/uL (1.40-6.50); %Basophils 0.3 % (0.0-1.0); %Eosinophils 0.1 % (0.0-10.0); %Monocytes 4.4 % (0.0-10.0); %Neutrophils 86.1 % (42.0-75.0); Mean Corpuscular HGB CONC 32.2 g/dL (32.0-36.0); Mean Corpuscular Hemoglobin 28.6 pg (27.0-31.0); Mean Corpuscular Volume 88.9 fL (78.0-98.0); Mean Platelet Volume 7.3 fL (7.4-10.4); Platelet Count 435 thou/uL (130-400); RBC Distribution Width 14.8 % (11.5-14.5); Red Blood Cell (RBC) Count 3.84 mill/uL (4.20-5.40); White Blood Cell (WBC) Count 18.7 thou/uL (4.8-10.8)
[2019-02-17] MEDS: Levothyroxine Sodium 125 MCG TAB PO SCH (05:28)
[2019-02-17 05:47] LABS: Anion Gap 14 mmol/L (10-20); BUN (Urea Nitrogen) 17 mg/dL (9.8-20.1); Calc. Creatinine Clearance 91 mL/min (70-130); Calcium 9.1 mg/dL (7.8-10.44); Carbon Dioxide 24 mmol/L (23-31); Chloride 97 mmol/L (98-107); Estimated GFR-MDRD 69; Glucose 384 mg/dL (83-110); Potassium 4.6 mmol/L (3.5-5.1); Sodium 130 mmol/L (136-145)
[2019-02-17] MEDS: Insulin Regular 300 UNITS/3 ML VIAL SC PRN ×2 (05:56→11:13)
[2019-02-17] MEDS ORDERED: Fluconazole 100 MG TAB PO SCH (08:30)
[2019-02-17] MEDS: Insulin Regular 300 UNITS/3 ML VIAL SC SCH ×2 (08:52→11:13)
[2019-02-17] MEDS: Gabapentin 300 MG CAP PO SCH (08:52)
[2019-02-17] MEDS: Nystatin 500,000 UNITS/5 ML UDCUP SSW SCH ×2 (08:53→12:11)
[2019-02-17] MEDS: methylPREDNISolone Sod Succ 40 MG VIAL IVP SCH (08:53)
[2019-02-17] MEDS: Venlafaxine HCl XR 150 MG CAP PO SCH (08:54)
[2019-02-17] MEDS ORDERED: Insulin Glargine 30 UNITS in Pre-Filled Syringe 1 EACH SC SCH (09:00)
[2019-02-17] MEDS ORDERED: Cefdinir 300 MG CAP PO SCH (09:00)
[2019-02-17] MEDS ORDERED: Doxycycline 100 MG CAP PO SCH (09:00)
[2019-02-17] MEDS ORDERED: Fluticasone Propionate Nasal Spray 16 gm Bottle NASAL SCH (09:00)
[2019-02-17 11:30] VITALS: BP 136/60; TEMP 97.4
[2019-02-17] MEDS ORDERED: Vancomycin HCl 750 MG in Sodium Chloride 0.9% 250 ML 250 ML IVPB SCH (14:00)
--- NOTE | 2019-02-18 14:08 | EKG ---
Test Reason : Blood Pressure : / mmHG Vent. Rate : 122 BPM Atrial Rate : 122 BPM P-R Int : 156 ms QRS Dur : 084 ms QT Int : 282 ms P-R-T Axes : 045 081 056 degrees QTc Int : 401 ms Sinus tachycardia Low voltage QRS Nonspecific T wave abnormality Abnormal ECG When compared with ECG of 04-JAN-2019 11:47, No significant change was found Confirmed by CANDICE DE JESUS (2) on 02/18/2019 2:08:02 PM Referred By: DAMIEN LUNA Confirmed By:CANDICE DE JESUS
--- NOTE | 2019-02-18 14:16 | EKG ---
Test Reason : STAT Blood Pressure : / mmHG Vent. Rate : 126 BPM Atrial Rate : 126 BPM P-R Int : 150 ms QRS Dur : 076 ms QT Int : 278 ms P-R-T Axes : 040 086 081 degrees QTc Int : 402 ms Sinus tachycardia Low voltage QRS Nonspecific ST and T wave abnormality Abnormal ECG When compared with ECG of 14-FEB-2019 23:49, (Unconfirmed) Sinus rhythm has replaced Electronic atrial pacemaker Nonspecific T wave abnormality, worse in Lateral leads Confirmed by CANDICE DE JESUS (2) on 02/18/2019 2:16:35 PM Referred By: SHELBIE Confirmed By:CANDICE DE JESUS
--- NOTE | 2019-02-19 20:11 | DIS ---
DATE OF ADMISSION: 02/12/2019 DATE OF DISCHARGE: 02/17/2019 PRIMARY CARE PHYSICIAN: Arvind De La Paz MD DISCHARGE DIAGNOSES: 1. Bilateral pneumonia. 2. Chronic interstitial lung disease. 3. Acute on chronic respiratory failure with hypoxia. 4. Morbid obesity. 5. Diabetes mellitus. 6. Left lower extremity pain. 7. Lumbar spondylosis. 8. Hypertension. 9. Hypothyroidism. 10. Chronic anticoagulation with Xarelto. 11. Prior history of deep vein thrombosis, status post IVC filter placement. 12. Chronic debilitation with immobility. 13. Anxiety disorder. 14. Depression. 15. Hyponatremia. 16. Syndrome of inappropriate antidiuretic hormone secretion. CONSULTS: 1. Infectious Disease. 2. Neurosurgery. 3. Orthopedic Surgery. 4. Pulmonology. 5. Palliative Care. HOSPITAL COURSE: A 73-year-old female with multiple comorbidities, admitted with worsening left leg pain associated with shortness of breath. The patient was found to have leukocytosis and tachycardia and was started on broad-spectrum antibiotics for presumed sepsis. Some of infection initially was unclear, but later on the patient had a fever of 100.8 on February 14 and further evaluation with CT scan showed bilateral pneumonia superimposed on chronic interstitial lung disease. Broad-spectrum antibiotic therapy was continued with addition of levofloxacin. Fever later subsided and the patient improved. The patient on presentation had left leg pain and there was a concern about left intertrochanteric fracture. Orthopedic consult was obtained and evaluation with CT scan, however, revealed no fracture. Neurosurgery consult was obtained in such because of the left leg pain and further evaluation with MRI of the thoracic, cervical, and lumbosacral spine showed multilevel degenerative joint disease, but no severe neuroforaminal or spinal canal stenosis, hence no indication for surgical intervention. Hospital course was complicated by development of acute mental status change, which was thought to be due to acute hyponatremia and the patient was treated with hypertonic solution with improvement. Given that the patient has chronic debilitation and pretty much bed bound at home, Palliative Care consult was obtained, in addition, given the fact that the patient has chronic respiratory failure from interstitial lung disease, which is approaching end-stage, the patient and family elected to go home with hospice and this was arranged. The patient remained stable and was subsequently discharged home on home oxygen. PHYSICAL EXAMINATION: VITAL SIGNS: Temperature 97.4, pulse 104, respiratory rate 28, SpO2 of 93% on 3 L nasal cannula, and blood pressure is 136/60. GENERAL: Obese female, in no obvious distress. Afebrile. Anicteric. Acyanotic. HEENT: Normocephalic and atraumatic. Oral mucosa is moist. CARDIOVASCULAR: Regular rhythm and rate with normal heart sounds 1 and 2. RESPIRATORY: Fair air entry bilateral with bibasilar crackles. GI: Obese, soft, nontender, and nondistended with normal bowel sounds. EXTREMITIES: Grossly normal looking atraumatic with no edema or erythema. 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 DISCHARGE CONDITION: Improved. DISCHARGE DISPOSITION: Home with home hospice. DISCHARGE MEDICATIONS: See discharge med rec for discharge medications. This discharge took more than 40 minutes. Job ID: [id number]
== END 2019-02-17 13:20 | disposition hospice, home (50) | DRG 871 ==
LOC: ERS 22:58 → SURG A 02-12 01:56 → 2NO 02-15 01:09
PROVIDERS: ADMIT Family Medicine; ATTEND Family Medicine
DX: A41.9 Sepsis, unspecified organism (principal); G93.41 Metabolic encephalopathy; J96.20 Acute and chronic respiratory failure, unspecified whether with hypoxia or hypercapnia; J18.0 Bronchopneumonia, unspecified organism; E22.2 Syndrome of inappropriate secretion of antidiuretic hormone; Z66 Do not resuscitate; Z51.5 Encounter for palliative care; F32.9 Major depressive disorder, single episode, unspecified; Z96.653 Presence of artificial knee joint, bilateral; F41.9 Anxiety disorder, unspecified; J84.10 Pulmonary fibrosis, unspecified; E89.0 Postprocedural hypothyroidism; I10 Essential (primary) hypertension; E11.9 Type 2 diabetes mellitus without complications; M51.16 Intervertebral disc disorders with radiculopathy, lumbar region; E66.01 Morbid (severe) obesity due to excess calories; M47.26 Other spondylosis with radiculopathy, lumbar region; M25.552 Pain in left hip; M25.562 Pain in left knee; Z68.36 Body mass index [BMI] 36.0-36.9, adult; Z99.81 Dependence on supplemental oxygen; Z86.718 Personal history of other venous thrombosis and embolism; Z90.49 Acquired absence of other specified parts of digestive tract; Z90.710 Acquired absence of both cervix and uterus; Z88.1 Allergy status to other antibiotic agents; Z88.8 Allergy status to other drugs, medicaments and biological substances; Z79.899 Other long term (current) drug therapy; Z79.01 Long term (current) use of anticoagulants; Z79.4 Long term (current) use of insulin; Z79.890 Hormone replacement therapy; Z86.711 Personal history of pulmonary embolism
CPT/HCPCS: 36415; 36416; 71045; 71250; 72141; 72157; 72158; 72170; 80048; 80053; 80202; 81001; 83605; 83735; 83930; 83935; 84145; 84484; 85025; 85652; 86140; 87040; 87070; 87086; 87205; 93005; 93010; 93970; 94640; 96365; J1815; J1956; J2060; J2185; J2270; J2920; J3370; J7620; Q0163